=== PATIENT | female | born 1970 | race Two or more races ===

== ENCOUNTER 2022-07-25 09:35 | Inpatient (IN) | payer MEDICAID ==
[2022-07-25] VITALS (8 sets, daily range): BP systolic 88–109; BP diastolic 61–77
[~2022-07-25] VITALS: Ht 157.5 cm; Wt 56.7 kg
--- NOTE | 2022-07-25 09:42 | NUR ---
[id number] FROM 4 SEASONS NOTED ALTERED AND HYPOTENSIVE 20 MINS DRUM CLEANER PER EMS SVT, VERSED 5MG GIVEN PRIOR CARDIOVERSION. ADENOSINE 6/12 MG GIVEN
[2022-07-25 09:58] LABS: ABG BASE EXCESS 29.6 mmol/L; ABG PCO2 63.5 mmHg (35.0-45.0); ABG PH 7.564 (7.350-7.450); ABG PO2 407.5 mmHg (75.0-100.0); COHb 0.3 % (0.5-1.5); MetHb 0.2 % (0.0-1.5); SITE, ABG Right Brachial; VENT MODE, BG 15L NRB
--- NOTE | 2022-07-25 09:58 | NUR ---
RAC 20G IV ESTABLISHED. LABS DRAWN AND SENT TO LAB. LINE FLUSHED
[2022-07-25] MEDS ORDERED: IV NS 0.9% 1,000 ML BAG IV ONE (10:00)
--- NOTE | 2022-07-25 10:00 | NUR ---
BLOOD SAMPLE OBTAINED SENT TO LAB
--- NOTE | 2022-07-25 10:14 | NUR ---
FROM NON REBREATHER TO NASAL CANNULA CHANGED BY RT
--- NOTE | 2022-07-25 10:22 | NUR ---
COVID SWAB TAKEN
[2022-07-25] MEDS ORDERED: METF-440 GT (10:23)
[2022-07-25] MEDS ORDERED: ACET-2605 GT (10:23)
[2022-07-25] MEDS ORDERED: AMIN30LI2 GT (10:23)
[2022-07-25] MEDS ORDERED: LACT-96 GT (10:23)
[2022-07-25] MEDS ORDERED: ONDA-97 GT (10:23)
[2022-07-25] MEDS ORDERED: NA P133E RC (10:23)
[2022-07-25] MEDS ORDERED: BISA10SU11 RC (10:23)
[2022-07-25] MEDS ORDERED: ASCO-340 GT (10:23)
[2022-07-25] MEDS ORDERED: MAGN400O6 GT (10:23)
[2022-07-25] MEDS ORDERED: ACET-868 GT (10:23)
[2022-07-25] MEDS ORDERED: PANT40SU2 GT (10:23)
[2022-07-25] MEDS ORDERED: ZINC50TA69 GT (10:23)
[2022-07-25] MEDS ORDERED: SENN-261 GT (10:23)
[2022-07-25] MEDS ORDERED: MULT-447 GT (10:23)
[2022-07-25] MEDS ORDERED: ACETAMINOPHEN 650 MG/SUPP.RECT RC ONE ×2 (10:29→10:30)
[2022-07-25] MEDS ORDERED: VANCOMYCIN 1 GM in IV D5W 250 ML IV ONE (10:30)
[2022-07-25] MEDS ORDERED: PIPERACILLIN /TAZOBACTAM 3.375 G in IV D5W 50 ML IV ONE (10:30)
--- NOTE | 2022-07-25 10:38 | NUR ---
MOVE SHEET SUBMITTED.
--- NOTE | 2022-07-25 11:14 | NUR ---
PATIENT TAKEN TO CT VIA TOMASA
[2022-07-25 11:26] LABS: HEMATOCRIT 25 % (33-45); HEMOGLOBIN 7.5 g/dL (11.5-14.8); LYMPHOCYTES # (AUTO) 0.2 K/uL (0.8-4.8); MEAN CORPUSCULAR HGB CONC 30 g/dl (31.0-36.0); MEAN CORPUSCULAR VOLUME 80 fL (82-100); MONOCYTES # (AUTO) 0.4 K/uL (0.1-1.30); MONOCYTES % (AUTO) 3.8 % (2.0-12.0); NEUTROPHILS % (AUTO) 94.2 % (43.0-81.0); PLATELET COUNT (AUTO) 232 K/uL (150-450); RED BLOOD CELL COUNT(AUTO) 3.16 MIL/uL (4.0-5.2); WHITE BLOOD COUNT (AUTO) 10.6 K/uL (4.3-11.0)
[2022-07-25 11:28] LABS: ALANINE AMINOTRANSFERASE 40 U/L (12-78); ALBUMIN 2.6 g/dL (3.4-5.0); ALKALINE PHOSPHATASE 153 U/L (46-116); ASPARTATE AMINOTRANSFERASE 74 U/L (15-37); BILIRUBIN,DIRECT 1.6 mg/dL (0.0-0.2); BILIRUBIN,TOTAL 2.4 mg/dL (0.2-1.0); CALCIUM, SERUM 7.9 mg/dL (8.5-10.1); CHLORIDE 90 mmol/L (98-107); CREATININE 4.3 mg/dL (0.6-1.3); TOTAL PROTEIN, SERUM 6.3 g/dL (6.4-8.2)
[2022-07-25 11:54] LABS: CARBON DIOXIDE 54 mmol/L (21-32); GLUCOSE 351 mg/dL (74-106); POTASSIUM 2.1 mmol/L (3.5-5.1); SODIUM SERUM 159 mmol/L (136-145); UREA NITROGEN, BLOOD 127 mg/dL (7-18)
--- NOTE | 2022-07-25 11:55 | NUR ---
CALLED CARDIOLOGY DR. KUO SPEAKING WITH DR. ARMSTRONG.
--- NOTE | 2022-07-25 12:03 | NUR ---
URINE SAMPLE SENT TO LAB
--- NOTE | 2022-07-25 12:05 | NUR ---
CRITICAL LAB RESULTS: SODIUM 159 POTASSIUM 2.1 GLUCOSE 351 BUN 127 LACTIC ACID 3.3 TROPONIN 1,471 MADE AWARE
[2022-07-25 12:33] LABS: BILIRUBIN,URINE 1+ (NEGATIVE); COLOR,URINE DARK YELLOW (YELLOW); LEUKOCYTE ESTERASE ,URINE TRACE (NEGATIVE); NITRITE, URINE NEGATIVE (NEGATIVE); PH,URINE 5.5 (5.0-8.0); PROTEIN,URINE 3+ mg/dl (NEGATIVE); UGLUCOSE TRACE mg/dL (NEGATIVE)
--- NOTE | 2022-07-25 12:36 | NUR ---
ROOM 255, ADMITTING AWARE
--- NOTE | 2022-07-25 12:37 | NUR ---
GOT BED 255 ADMITTING INFORMED.
[2022-07-25 12:41] LABS: BACTERIA,URINE Few /HPF (None Seen); SQUAMOUS EPITHELIAL CELL,UR Moderate /HPF (None Seen)
--- NOTE | 2022-07-25 12:50 | NUR ---
[facility] PAGED. AWAITING HOSPITALIST CALL BACK.
[2022-07-25] MEDS: POTASSIUM CL. PREMIX PERIPHER. 50 ML IV SCH ×4 (13:00→15:53)
[2022-07-25] MEDS ORDERED: POTASSIUM CHLORIDE 20 MEQ TAB.PRT.SR PO ONE (13:00)
--- NOTE | 2022-07-25 13:13 | NUR ---
K DUR TABLETS DISCONTINUED DUE TO PATIENT HIGH RISK FOR ASPIRATION. MADE AWARE.
--- NOTE | 2022-07-25 13:57 | NUR ---
REPORT GIVEN TO BEBETO RICKETTS ICU ROOM 255 FOR KARUNA
[2022-07-25] MEDS ORDERED: ONDANSETRON HCL/PF 4 MG/2 ML VIAL IVP PRN (15:00)
[2022-07-25] MEDS ORDERED: IV NS 0.9% 1,000 ML IV SCH (15:00)
[2022-07-25] MEDS ORDERED: IV D5/0.45 NACL 1,000 ML IV SCH (15:00)
[2022-07-25] MEDS ORDERED: CEFEPIME 2 GM in IV D5W 100 ML IV ONE (15:00)
[2022-07-25] MEDS ORDERED: ACETAMINOPHEN 325 MG TABLET PO PRN (15:00)
[2022-07-25] MEDS ORDERED: MAGNESIUM HYDROXIDE 30 ML UDC PO PRN (15:00)
[2022-07-25] MEDS ORDERED: MAG HYDROX/AL HYDROX/SIMETH 30 ML UDC PO PRN (15:00)
[2022-07-25] MEDS ORDERED: Z GUARD REMEDY 4 OZ OINT TP PRN (15:00)
--- NOTE | 2022-07-25 15:15 | NUR ---
ICU/RN PT ADMITED FROM ER. DUE TO SEPSIS.AWAKE,ALERT ,ORIENTED.PITCAIRN ISLANDER SPEAKING.[id number].V/S STABLE.PT HAS HX OF GASTRIC CA.HAS G-TUBE CLAMPED.F/C IN PLACE.WITH YELLOW URINE. SKIN INTACT. LABS REVIEW.K-2.1.KCL INFUSING ORDERED.PT C/O OF ABDOMINAL PAIN .MD NOTIFIED. CONTINUE MONITORING.
--- NOTE | 2022-07-25 15:15 | NUR ---
PATIENT TRANSFERED AND ADMITTED PER ACLS PROTOCOL
[2022-07-25] MEDS: ENOXAPARIN SODIUM 30 MG/0.3 ML DISP.SYRIN SQ SCH (15:35)
--- NOTE | 2022-07-25 15:38 | NUR ---
ICU/RN PT HAS N/V .ZOFRAN IV GIVEN ORDERED.
[2022-07-25] MEDS: MORPHINE SULFATE INJ 4 MG/ML DISP.SYRIN IV PRN (16:03)
--- NOTE | 2022-07-25 16:05 | NUR ---
ICU/RN PT C/O OF ABDOMINAL PAIN 9-12/22. MORPHINE SULFATE 4 MG IV GIVEN ORDERED.
[2022-07-25] MEDS: BLOOD SUGAR DIAGNOSTIC 1 EACH STRIP VI SCH ×2 (16:31→22:23)
--- NOTE | 2022-07-25 16:32 | NUR ---
RN NOTES RECEIVED CRITICAL OF TROPONIN 1853 FROM ALODIZE MACHINE OPERATOR (BALJEET). DR. LARSON AWARE AND THAT TROPONIN IS TRENDING DOWN.
[2022-07-25] MEDS: INSULIN REGULAR, HUMAN 100 UNIT/ML 3 ML VIAL SQ PRN (16:51)
--- NOTE | 2022-07-25 16:51 | NUR ---
RN NOTES NOTIFIED DR. LARSON THAT PT'S GLUCOSE IS CURRENTLY AT 429. GAVE 15U REGULAR INSULIN. THE DOCTOR IS AWARE AND REQUESTED TO D/C D5 1/2 NS AND REPLACE WITH 1/2 NS AT THE SAME RATE OF 100 ML/HR.
[2022-07-25] MEDS: IV 1/2NS 1000 ML 1,000 ML IV PRN (17:27)
[2022-07-25] MEDS: *INSULIN REGULAR(HUMULIN R)HUM 100 UNIT/ML VIAL SQ PRN ×2 (18:30→22:28)
--- NOTE | 2022-07-25 18:30 | NUR ---
RN NOTES RECHECKED PT'S GLUCOSE AND IS NOW AT 401. GAVE ANOTHER 15U OF REGULAR INSULIN. NOTIFIED DR. LARSON AND HE IS AWARE.
--- NOTE | 2022-07-25 18:41 | NUR ---
ICU/RN K LEVEL 2.5. MD NOTIFIED 80 MEQ KLOR VIA G-TUBE ORDERED AND REPLACED.
[2022-07-25] MEDS ORDERED: POTASSIUM CHLORIDE 20 MEQ POWDER PACKET GT ONE (19:00)
--- NOTE | 2022-07-25 19:07 | NUR ---
RN CLOSING NOTES PT LOOKS COMFORTABLE, ALL DUE MEDS GIVEN. REPORT GIVEN TO MARISOL RICKETTS FOR CONTINUATION OF CARE.
--- NOTE | 2022-07-25 23:30 | NUR ---
DELIVERY COORDINATOR CALLED LAB FOR 9528 DRAW
[2022-07-26] VITALS (18 sets, daily range): BP systolic 98–134; BP diastolic 66–95
[2022-07-26 00:57] LABS: CALCIUM, SERUM 8.4 mg/dL (8.5-10.1); CREATININE 4.5 mg/dL (0.6-1.3); MAGNESIUM 3.4 mg/dL (1.8-2.4)
--- NOTE | 2022-07-26 01:15 | NUR ---
PERSONAL CHEF CALLED LAB FOR RESULTS OF 2330 LAB WORK; PER LAB STILL RUNNING
[2022-07-26] MEDS: POTASSIUM CL. PREMIX PERIPHER. 50 ML IV SCH ×3 (02:02→04:00)
[2022-07-26] MEDS: IV 1/2NS 1000 ML 1,000 ML IV PRN (02:32)
[2022-07-26 06:18] LABS: BASOPHILS % (AUTO) 0.2 % (0.0-2.0); EOSINOPHILS % (AUTO) 0.2 % (0.0-6.0); HEMATOCRIT 27 % (33-45); HEMOGLOBIN 8.2 g/dL (11.5-14.8); LYMPHOCYTES # (AUTO) 1.1 K/uL (0.8-4.8); LYMPHOCYTES % (AUTO) 5.8 % (20.0-44.0); MEAN CORPUSCULAR HGB CONC 30 g/dl (31.0-36.0); MEAN CORPUSCULAR VOLUME 78 fL (82-100); MONOCYTES # (AUTO) 0.9 K/uL (0.1-1.30); MONOCYTES % (AUTO) 4.7 % (2.0-12.0); NEUTROPHILS # (AUTO) 17.2 K/uL (1.8-8.9); NEUTROPHILS % (AUTO) 89.1 % (43.0-81.0); PLATELET COUNT (AUTO) 240 K/uL (150-450); RED BLOOD CELL COUNT(AUTO) 3.46 MIL/uL (4.0-5.2); WHITE BLOOD COUNT (AUTO) 19.3 K/uL (4.3-11.0)
[2022-07-26 06:46] LABS: ALBUMIN 2.6 g/dL (3.4-5.0); BILIRUBIN,TOTAL 1.4 mg/dL (0.2-1.0); CALCIUM, SERUM 8.4 mg/dL (8.5-10.1); CREATININE 4.4 mg/dL (0.6-1.3); MAGNESIUM 3.2 mg/dL (1.8-2.4); PHOSPHORUS 7.4 mg/dL (2.5-4.9); TOTAL PROTEIN, SERUM 6.6 g/dL (6.4-8.2)
--- NOTE | 2022-07-26 07:21 | NUR ---
RN OPENING NOTE PT IN BED ON OXYGEN 3 LITER VIA NASAL CANULA, BREATHING EVEN AND UNLABORED WITH NO S/S OF SOB OR RESPIRATORY DISTRESS.. IV ACCESS ON BELINDA MIDLINE . INTACT AND PATENT AND NO S/S OF INFILTRATIONS RUNNING 1/2 NS AT 100CC/HR. ALL SAFETY MEASURES IN PLACE WITH SIDE RAILS UP X3, BED IN LOWEST POSITION AND LOCKED AND CALL LIGHT WITHIN REACH. WILL CONTINUE TO MONITOR.
[2022-07-26] MEDS: DEXTROSE 50%-WATER 50 ML DISP.SYRIN IV PRN (07:36)
[2022-07-26] MEDS: BLOOD SUGAR DIAGNOSTIC 1 EACH STRIP VI SCH ×4 (07:36→22:42)
[2022-07-26] MEDS: ENOXAPARIN SODIUM 30 MG/0.3 ML DISP.SYRIN SQ SCH (08:47)
[2022-07-26] MEDS ORDERED: GLUCERNA 1.2 1,000 ML BOTTLE NG PRN (09:00)
[2022-07-26] MEDS: IV D5/0.45 NACL 1,000 ML IV PRN ×2 (09:02→21:44)
[2022-07-26] MEDS: GLUCERNA 1.2 1,000 ML BOTTLE NG PRN (10:21)
--- NOTE | 2022-07-26 10:21 | NUR ---
RN NOTES: CHECKED GT RESIDUAL IS ABOVE 400 ML DARK GREEN NOTIFIED DR SIERRA IF OK TO START TUBE FEEDING HE SAID NO GIVE FREE WATER AND RECHECK IN FEW HOURS , 300 ML FREE WATER GIVEN ,NO VOMITING NOTED WILL MONITOR
[2022-07-26 11:31] LABS: BILIRUBIN,URINE NEGATIVE (NEGATIVE); COLOR,URINE YELLOW (YELLOW); LEUKOCYTE ESTERASE ,URINE NEGATIVE (NEGATIVE); NITRITE, URINE NEGATIVE (NEGATIVE); PH,URINE 8.5 (5.0-8.0); PROTEIN,URINE 1+ mg/dl (NEGATIVE); UGLUCOSE NEGATIVE (NEGATIVE); UROBILINOGEN,URINE 0.2 EU/dL (0.2)
[2022-07-26 11:35] LABS: CREATININE, URINE 45.1 MG/DL (30.0-125.0)
[2022-07-26 11:52] LABS: BACTERIA,URINE Moderate /HPF (None Seen); SQUAMOUS EPITHELIAL CELL,UR Moderate /HPF (None Seen); WBC,URINE NONE SEEN /HPF (0-3)
[2022-07-26] MEDS ORDERED: MAGNESIUM HYDROXIDE 30 ML UDC GT PRN (12:21)
[2022-07-26] MEDS ORDERED: MAG HYDROX/AL HYDROX/SIMETH 30 ML UDC GT PRN (12:22)
[2022-07-26] MEDS ORDERED: ACETAMINOPHEN 650 MG/20.3 ML UDC PO PRN (12:30)
--- NOTE | 2022-07-26 15:45 | NUR ---
RN NOTES: PT MOVED TO TELE UNIT ROOM 1111-2, STAY WITH PT TO CONTINUE CARE, CALLED SON NO ANSWER, CALLED DAUGHTER MADE AWARE OF THE TRANSFER
[2022-07-26] MEDS: CEFEPIME 1 GM in IV D5W 50 ML IV SCH (16:57)
--- NOTE | 2022-07-26 19:10 | NUR ---
SENIOR COUNSEL OPENING NOTE PT IS SLEEPING IN BED WITH HOB ELEVATED AT 30 DEGREE. PT HAS G-TUBE, BUT CURRENTLY THE FEEDING IS HELD DUE TO HIGH STOMACH RESIDUAL PER CHANGE SHIFT REPORT. PT IS FRISIAN SPEAKING, AO X 1. SHE IS CONFUSED. SHE IS ON 3LPM OF OXYGEN VIA NC, TOLERATED WELL.NO S/S OF DISTRESS OR SOB. IV ACCESS IS AT HER R UA,ML, #18G, INFUSING D5 1/2NS @75 ML/HR. IV SITE IS PATENT AND INTACT. PT IS ON EXTERNAL MOLDING MACHINE OPERATOR HELPER, ON THE MONITOR, PT'S HEART RHYTHM IS SR WITH HR AT 80S. PT DENIES OF HAVING PAIN AT THIS MOMENT. SAFETY MEASURES ARE IN PLACED: BED IN LOWEST AND LOCKED POSITION; SIDE RAILS UP X 2; CALL LIGHT AND TABLE ARE WITHIN REACH. WILL CONTINUE MONITORING THE PT AND PROVIDE THE CARE PT NEEDS.
--- NOTE | 2022-07-26 19:43 | NUR ---
RN CLOSING NOTES PT IN BED AWAKE ALERT SPEAKS MALAY,NOT IN ANY DISTRESS, CONTINUE TO HOLD GTF RESIDUAL IS GREEN ABOVE 300 CC,DR SIERRA AWARE, ALL DUE MEDS GIVEN. CONTINUE IV D5 1/2 NS AT 75 ML/HR. REPORT GIVEN TO GRADES 1 THROUGH 5 TEACHER RN FOR CONTINUATION OF CARE.
--- NOTE | 2022-07-26 21:00 | NUR ---
RECORDING STUDIO SET UP WORKER NOTE CHECKED PT'S G-TUBE RESIDUAL, RECEIVED 600 ML OF GREENISH AND BLUISH COLOR LIQUID. NOTIFIED Jimmy REDDY AND CHARGE NURSE BENITO. DISCARDED THE LIQUID. RECEIVED ORDER OF MEDICATION, REGLAN,FOR THE PT. CHARGE NURSE, BENITO, NOTIFIED.
[2022-07-26] MEDS: METOCLOPRAMIDE HCL 10 MG/2 ML VIAL IV SCH (22:41)
[2022-07-26] MEDS: MORPHINE SULFATE INJ 4 MG/ML DISP.SYRIN IV PRN (22:57)
[2022-07-26] MEDS: *INSULIN REGULAR(HUMULIN R)HUM 100 UNIT/ML VIAL SQ PRN (23:00)
--- NOTE | 2022-07-26 23:13 | NUR ---
PACKING ROOM WORKER NOTE PT STATED SHE WAS HAVING PAIN AT HER UPPER ABD, 10/10 ON A 0 TO 10 PAIN SCALE. PRN IV MEDICATION, MORPHINE 4 MG, ADMINISTERED TO THE PT PER MD ORDER.
[2022-07-27] VITALS: BP 107/72
[2022-07-27] MEDS: MORPHINE SULFATE INJ 4 MG/ML DISP.SYRIN IV PRN (01:14)
[2022-07-27] MEDS: METOCLOPRAMIDE HCL 10 MG/2 ML VIAL IV SCH ×4 (03:50→21:36)
[2022-07-27 04:00] VITALS: BP 110/72
--- NOTE | 2022-07-27 06:30 | NUR ---
BUILDING PRESSURE WASHER CLOSING NOTE PT IS SLEEPING IN BED WITH HOB ELEVATED AT 45 DEGREE. PT HAS G-TUBE, BUT CURRENTLY THE FEEDING IS HELD DUE TO HIGH STOMACH RESIDUAL. G-TUBE HAS BEEN FLUSHED PER MD ORDER DURING THE SHIFT. SHE IS ON 3LPM OF OXYGEN VIA NC, TOLERATED WELL.NO S/S OF DISTRESS OR SOB. IV ACCESS IS AT HER R UA,ML, #18G, INFUSING D5 1/2NS @75 ML/HR. IV SITE IS PATENT AND INTACT. PT IS ON EXTERNAL BRUSH FINISHER, ON THE MONITOR, PT'S HEART RHYTHM IS SR WITH HR AT 80S. PT DENIES OF HAVING PAIN AT THIS MOMENT. SAFETY MEASURES ARE IN PLACED: BED IN LOWEST AND LOCKED POSITION; SIDE RAILS UP X 2; CALL LIGHT AND TABLE ARE WITHIN REACH. WILL ENDORSE NEXT SHIFT NURSE FOR CONTINUING PT CARE.
[2022-07-27] MEDS: IV D5/0.45 NACL 1,000 ML IV PRN ×2 (06:46→16:49)
[2022-07-27 07:30] LABS: BASOPHILS % (AUTO) 0.2 % (0.0-2.0); EOSINOPHILS % (AUTO) 0.5 % (0.0-6.0); HEMATOCRIT 25 % (33-45); HEMOGLOBIN 7.5 g/dL (11.5-14.8); LYMPHOCYTES % (AUTO) 7.9 % (20.0-44.0); MEAN CORPUSCULAR HGB CONC 31 g/dl (31.0-36.0); MEAN CORPUSCULAR VOLUME 81 fL (82-100); MONOCYTES # (AUTO) 0.7 K/uL (0.1-1.30); MONOCYTES % (AUTO) 5.3 % (2.0-12.0); NEUTROPHILS # (AUTO) 10.7 K/uL (1.8-8.9); NEUTROPHILS % (AUTO) 86.1 % (43.0-81.0); PLATELET COUNT (AUTO) 196 K/uL (150-450); RED BLOOD CELL COUNT(AUTO) 3.05 MIL/uL (4.0-5.2); WHITE BLOOD COUNT (AUTO) 12.4 K/uL (4.3-11.0)
[2022-07-27 07:38] LABS: CALCIUM, SERUM 8.9 mg/dL (8.5-10.1); CREATININE 2.8 mg/dL (0.6-1.3)
[2022-07-27 07:39] LABS: MAGNESIUM 3.6 mg/dL (1.8-2.4); PHOSPHORUS 4.6 mg/dL (2.5-4.9)
[2022-07-27 07:45] LABS: IRON, SERUM 33 ug/dl (50-175); TOTAL IRON BINDING CAPACITY 201 ug/dl (250-450)
[2022-07-27 07:55] LABS: POTASSIUM 2.6 mmol/L (3.5-5.1)
[2022-07-27] MEDS: BLOOD SUGAR DIAGNOSTIC 1 EACH STRIP VI SCH ×4 (07:59→22:00)
[2022-07-27 08:00] VITALS: BP 123/75
[2022-07-27] MEDS: INSULIN REGULAR, HUMAN 100 UNIT/ML 3 ML VIAL SQ PRN ×3 (08:37→21:54)
[2022-07-27 09:00] LABS: THYROID STIMULATING HORMONE 4.201 uIU/mL (0.358-3.74)
[2022-07-27] MEDS ORDERED: POTASSIUM CHLORIDE 20 MEQ TAB.PRT.SR PO SCH (09:00)
--- NOTE | 2022-07-27 09:05 | NUR ---
RN NOTE REMOVED 450CC OF CLEAR GREEN RESIDUAL FROM G-TUBE, WILL CONTINUE TO HOLD FEEDING AT THIS TIME. CHARGE NURSE AWARE. AWARE.
[2022-07-27] MEDS ORDERED: VANCOMYCIN HCL 0.75 GM in IV D5W 250 ML IV SCH (11:00)
[2022-07-27] MEDS ORDERED: POTASSIUM CHLORIDE 10 MEQ/50 ML PREMIXED IVPB FOR PERIPHERAL LINE IV ONE ×3 (11:00→21:00)
[2022-07-27 12:00] VITALS: BP 117/81
[2022-07-27 16:00] VITALS: BP 124/88
[2022-07-27] MEDS: CEFEPIME 1 GM in IV D5W 50 ML IV SCH (16:21)
[2022-07-27] MEDS: acetaZOLAMIDE SODIUM 500 MG/VIAL VIAL IV SCH (16:22)
--- NOTE | 2022-07-27 18:18 | NUR ---
RN NOTE PULLED 10BAGS OF 10meQ / 50mL AT 1050AM, RUNNING AT 50mL/hr, bag 7/10 is RUNNING AT THIS TIME.
[2022-07-27] MEDS ORDERED: POTASSIUM CHLORIDE 20 MEQ POWDER PACKET GT ONE (18:30)
[2022-07-27] MEDS: *INSULIN REGULAR(HUMULIN R)HUM 100 UNIT/ML VIAL SQ PRN (19:07)
--- NOTE | 2022-07-27 20:39 | NUR ---
LOGISTICS/SHIPPER CLOSING NOTE PT IS SLEEPING IN BED WITH HOB ELEVATED AT 45 DEGREE. PT HAS G-TUBE, BUT CURRENTLY THE FEEDING IS HELD DUE TO HIGH STOMACH RESIDUAL. G-TUBE HAS BEEN FLUSHED 400CC OF FREE WATER Q6H PER MD ORDER DURING THE SHIFT. SHE IS ON 3LPM OF OXYGEN VIA NC, TOLERATED WELL.NO S/S OF DISTRESS OR SOB. IV ACCESS IS AT HER BELINDA,ML, #18G, INFUSING D5 1/2NS @150ML/HR. IV SITE IS PATENT AND INTACT. PT IS ON EXTERNAL BROADCAST PRODUCER, ON THE MONITOR, PT'S HEART RHYTHM IS SR WITH HR AT 80S. PT DENIES OF HAVING PAIN AT THIS MOMENT. SAFETY MEASURES ARE IN PLACED: BED IN LOWEST AND LOCKED POSITION; SIDE RAILS UP X 2; CALL LIGHT AND TABLE ARE WITHIN REACH. WILL ENDORSE NEXT SHIFT NURSE FOR CONTINUING PT CARE.
--- NOTE | 2022-07-27 21:05 | NUR ---
INFORMED DR MIJARES THAT I STILL HAVE TO BAGS OF POTASSIUM TO GIVE FOR TOTAL OF 10 BAGS, AND IF HE STILL WANT ME TO GIVE 1 BAG JUST ORDER BY HIM, AND PER HIM TO HOLD THE BAG, NOTED AND CARRIED OUT.
[2022-07-27 22:00] VITALS: BP 112/73
[2022-07-28] VITALS: BP 113/70
[2022-07-28] MEDS: IV D5/0.45 NACL 1,000 ML IV PRN ×2 (00:12→09:49)
[2022-07-28] MEDS: MORPHINE SULFATE INJ 4 MG/ML DISP.SYRIN IV PRN (03:36)
[2022-07-28 04:00] VITALS: BP 97/60
[2022-07-28] MEDS: METOCLOPRAMIDE HCL 10 MG/2 ML VIAL IV SCH ×4 (04:23→21:36)
[2022-07-28 06:20] LABS: HEMATOCRIT 35 % (33-45); HEMOGLOBIN 10.3 g/dL (11.5-14.8); LYMPHOCYTES # (AUTO) 0.3 K/uL (0.8-4.8); LYMPHOCYTES % (AUTO) 1.4 % (20.0-44.0); MEAN CORPUSCULAR HGB CONC 30 g/dl (31.0-36.0); MEAN CORPUSCULAR VOLUME 82 fL (82-100); MONOCYTES # (AUTO) 0.6 K/uL (0.1-1.30); MONOCYTES % (AUTO) 3.1 % (2.0-12.0); NEUTROPHILS # (AUTO) 19.1 K/uL (1.8-8.9); NEUTROPHILS % (AUTO) 95.5 % (43.0-81.0); PLATELET COUNT (AUTO) 411 K/uL (150-450); RED BLOOD CELL COUNT(AUTO) 4.24 MIL/uL (4.0-5.2)
--- NOTE | 2022-07-28 06:28 | NUR ---
END OF SHIFT, PATIENT IN BED, AT 3LPM VIA NC, NO SOB/ACUTE DISTRESS DURING THE NIGHT, NSR-SINUS TACHY IN TELE MONITOR, ON PAIN MANAGEMENT, CONTINUE ON IV FLUIDS ORDERED, DRESSING INTACT, VITAL SINGS STABLE DURING THE NIGHT, AFEBRILE, ALL SAFETY PRECAUTIONS IN PLACE, CALL LIGHT W/I REACH, WILL ENDORSE CONTINUITY OF CARE TO ONCOMING NURSE.
[2022-07-28 06:53] LABS: CALCIUM, SERUM 8.8 mg/dL (8.5-10.1); CREATININE 2.6 mg/dL (0.6-1.3); POTASSIUM 3.1 mmol/L (3.5-5.1)
--- NOTE | 2022-07-28 07:55 | NUR ---
electrician telephone opening note pt is alert and oriented x1, confused. pt is on tele monitor sinus tachycardia 116. pt has right upper armidline. iv intact, patent and flushing well. pt on 3 l nasal cannula saturating above 92%. no signs of pain or discomfort noted at this time. pt has gtube. all safety measures in place. call light within reach. bed locked at lowest postion. side rails up x2. bed alarm on
[2022-07-28 08:00] VITALS: BP 91/60
[2022-07-28] MEDS: BLOOD SUGAR DIAGNOSTIC 1 EACH STRIP VI SCH ×4 (08:02→22:00)
[2022-07-28] MEDS: acetaZOLAMIDE SODIUM 500 MG/VIAL VIAL IV SCH (08:35)
--- NOTE | 2022-07-28 08:36 | NUR ---
rn note notified that bp is 91/60 and if okay to hold acetazolamide.said okay to hold and resume once sbp >100
[2022-07-28] MEDS: POTASSIUM CL. PREMIX PERIPHER. 50 ML IV SCH ×6 (09:41→21:33)
[2022-07-28] MEDS: VANCOMYCIN HCL 0.75 GM in IV D5W 250 ML IV SCH (10:34)
[2022-07-28] MEDS: INSULIN REGULAR, HUMAN 100 UNIT/ML 3 ML VIAL SQ PRN (11:42)
[2022-07-28 12:00] VITALS: BP 91/64
[2022-07-28] MEDS ORDERED: ALBUMIN 25% 25 GM in PREMIX 1 EA IV ONE (12:00)
[2022-07-28] MEDS ORDERED: IV NS 0.9% 500 ML IV ONE ×2 (13:00→13:30)
[2022-07-28] MEDS: CEFEPIME 1 GM in IV D5W 50 ML IV SCH (15:59)
[2022-07-28 16:00] VITALS: BP 99/67
--- NOTE | 2022-07-28 17:08 | NUR ---
RN NOTE PT LEFT IN STABLE CONDITION FOR HIDA SCAN
[2022-07-28] MEDS: BLOOD SUGAR DIAGNOSTIC 1 EACH STRIP IN SCH (17:12)
--- NOTE | 2022-07-28 18:52 | NUR ---
rn note unable to give insulin coverage for 261, pt still at hida scan. unable to insert hansen, pt is at procedure at this time
--- NOTE | 2022-07-28 18:59 | NUR ---
rn note endorsed that pt will be back on tunit around 2030.pt still at hida scan
--- NOTE | 2022-07-28 19:47 | NUR ---
rn note received call from Dr.Sam Brown pt is tachycardia, high wbc count with possible bowel perforation and to order stat ct scan of abdomen and pelvis with oral contrast and iv contrast. orders noted and carried out. notified dr.sam brown and surgery department that creatine is 2.6. surgery team aware.endorsed to shift coordinator rn for contuity of care Addendum: 07/28/22 at 2022 by ROSS MERRITT RN disregard surgery department comment. received call from xray department bun and creatinine is high. notified that ct can not do oral and iv contrast due to high bun and creatinine level. ordered ct of abdomen and pelvis without contrast. notified xray about new order. Addendum: 07/28/22 at 2023 by ROSS MERRITT RN pt still in nuclear medicine
--- NOTE | 2022-07-28 21:06 | NUR ---
RN OPENING NOTE PATIENT OUT FOR HIDA SCAN
--- NOTE | 2022-07-28 22:25 | NUR ---
2225 Called Radiology and spoke with Vinh regarding stat CT abd/pelvis with oral contrast order, he said they are busy at the moment and will call us back.
--- NOTE | 2022-07-28 22:25 | NUR ---
PER DR CAROLINA MORALES TO DO STAT CT SCAN ABD/PELVIS WITH ORAL CONTRAST EVEN THOUGH BUN/CREATINE HIGH.
[2022-07-28 22:34] VITALS: BP 99/67
--- NOTE | 2022-07-28 23:00 | NUR ---
2300 called Radiology again to follow up CT order no answer.
--- NOTE | 2022-07-28 23:15 | NUR ---
[address] again still no answer.
--- NOTE | 2022-07-28 23:25 | NUR ---
2669 Received a call from Dr. Ireland he said Dr. Mccormack spoke with him and wants the patient transferred to ICU now for pending surgery tonight. House Sup notified.
[2022-07-28] MEDS ORDERED: DIATR MEGLU/DIATRIZOATE SODIUM 120 ML BOTTLE (GASTROGRAPHIN) ONE (23:36)
--- NOTE | 2022-07-28 23:40 | NUR ---
[address] on ACLS protocol. Awake and verbally responsive. No signs of distress noted.
[2022-07-28] MEDS ORDERED: IOHEXOL-300 100 ML VIAL IV ONE (23:47)
[2022-07-28] MEDS ORDERED: IV NS 0.9% 250 ML IV ONE (23:48)
[2022-07-28] MEDS ORDERED: CT SWABBABLE VALVE TRANS SET 1 EA INFUS.SET MC ONE (23:48)
[2022-07-29] VITALS (26 sets, daily range): BP systolic 81–139; BP diastolic 56–96
[2022-07-29] MEDS: INSULIN REGULAR, HUMAN 100 UNIT/ML 3 ML VIAL SQ PRN ×2 (00:19→06:17)
--- NOTE | 2022-07-29 00:20 | NUR ---
0020 Transferred to ICU on ACLS protocol. Report given to Corine RN by Bev RICKETTS. Called lab for stat blood works order.
--- NOTE | 2022-07-29 00:25 | NUR ---
RN NOTES, ENDORSED PATIENT TO SHIMA RN FOR CONTINUATION OF CARE, BEDSIDE REPORT GIVEN IN ICU UNIT, PATIENT NPO, JUST BROUGHT FROM RADIOLOGY FOR STAT CT ABDOMEN/PELVIS WITH ORAL CONTRAST PER DR FIGUEROA ORDERS, PATIENT AWAKE A/O X3 SIERRA LEONEAN SPEAKING, DR SUAZO SAW AND TALKED TO PATIENT EARLIER BEFORE CT, AND EXPLAINED THAT SHE NEEDS SURGERY FOR POSSIBLE BOWEL PERFORATION, AND AKSED PT IS SHE WAS OK WITH SURGERY, PT AGREED TO SURGERY, CALLED SON MAKAYLA AND MADE HIM AWARE OF THE SITUATION AND THAT PT IS BEING TRANSFERRED TO ICU.
[2022-07-29] MEDS: IV D5/0.45 NACL 1,000 ML IV PRN ×3 (00:37→22:14)
[2022-07-29] MEDS: BLOOD SUGAR DIAGNOSTIC 1 EACH STRIP IN SCH ×4 (00:43→19:17)
[2022-07-29 01:22] LABS: HEMATOCRIT 30 % (33-45); HEMOGLOBIN 8.9 g/dL (11.5-14.8); LYMPHOCYTES # (AUTO) 0.8 K/uL (0.8-4.8); LYMPHOCYTES % (AUTO) 4.4 % (20.0-44.0); MEAN CORPUSCULAR HGB CONC 30 g/dl (31.0-36.0); MEAN CORPUSCULAR VOLUME 80 fL (82-100); MONOCYTES # (AUTO) 0.4 K/uL (0.1-1.30); MONOCYTES % (AUTO) 2.1 % (2.0-12.0); NEUTROPHILS % (AUTO) 93.5 % (43.0-81.0); PLATELET COUNT (AUTO) 241 K/uL (150-450); RED BLOOD CELL COUNT(AUTO) 3.71 MIL/uL (4.0-5.2); WHITE BLOOD COUNT (AUTO) 19.3 K/uL (4.3-11.0)
[2022-07-29] MEDS ORDERED: BUPIVACAINE MPF 0.5% W/EPI INJ 30 ML VIAL ONE (01:33)
[2022-07-29] MEDS ORDERED: ANESTHESIA TRAY IN PYXIS 1 EA TRAY MC ONE (01:33)
[2022-07-29] MEDS ORDERED: LIDOCAINE 1% INJ 50 ML MDV IJ ONE (01:33)
--- NOTE | 2022-07-29 01:35 | NUR ---
RN LEVI BARBER AT BEDSIDE, EXPLAINED THE PROCEDURE AND RISK UNDERTAKEN TO THE PATIENT, SON MAKAYLA ON SPEAKER AND OBTAINED VERBAL CONSENT TO PERFORM PROCEDURE. JAMARCUS MEEKS AT BEDSIDE TO TRANSLATE IN [place].
[2022-07-29 01:41] LABS: CALCIUM, SERUM 8.1 mg/dL (8.5-10.1); CREATININE 4.1 mg/dL (0.6-1.3); POTASSIUM 4.4 mmol/L (3.5-5.1)
[2022-07-29 01:46] LABS: ALBUMIN 1.8 g/dL (3.4-5.0); TOTAL PROTEIN, SERUM 5.9 g/dL (6.4-8.2)
[2022-07-29] MEDS ORDERED: FENTANYL PF 250MCG/5ML AMPUL ONE (01:57)
[2022-07-29] MEDS ORDERED: ROCURONIUM BROMIDE 50 MG/5 ML ONE (01:58)
[2022-07-29] MEDS ORDERED: MIDAZOLAM HCL 2 MG/2ML VIAL ONE (01:58)
[2022-07-29] MEDS ORDERED: FAMOTIDINE/PF INJ 20 MG/2 ML VIAL IV ONE (01:58)
[2022-07-29] MEDS ORDERED: HYDROMORPHONE INJ 2 MG/ML DISP.SYRIN ONE (01:58)
[2022-07-29] MEDS ORDERED: CLINDAMYCIN 900 MG/6 ML VIAL ONE (01:59)
--- NOTE | 2022-07-29 02:10 | NUR ---
RN NOTE PT TRANSFERRED TO OR ACCOMPANIED BY 2 OR STAFF, HEMPHILL CATH INSERTED ORDERED. V/S TAKEN AND RECORDED 97.8, 95/80, 98%, HR 133, RR 42.
[2022-07-29] MEDS: METOCLOPRAMIDE HCL 10 MG/2 ML VIAL IV SCH ×4 (04:00→22:03)
[2022-07-29] MEDS ORDERED: ENOXAPARIN SODIUM 40 MG/0.4 ML DISP.SYRIN SQ SCH (05:30)
--- NOTE | 2022-07-29 05:30 | NUR ---
RN NOTE RECEIVED PT BACK FROM OR WITH DX OF LAPAROSCOPY, REPAIR OF GASTRIC PERFORATION AND EGD, DR SINGH AND MINDY RN AT BEDSIDE. PT NOTED WITH 4 INCISION, WITH 2 IRASEMA DRAIN ON BOTH SIDE. V/S TAKEN AND RECORDED AT 98.1, 101/85, SATING 100% ON 10L SIMPLE MASK, RR 32 AND HR 105. WILL CONT TO MONITOR PT CLOSELY.
[2022-07-29] MEDS: ENOXAPARIN SODIUM 30 MG/0.3 ML DISP.SYRIN SQ SCH (06:16)
[2022-07-29] MEDS: BLOOD SUGAR DIAGNOSTIC 1 EACH STRIP VI SCH ×4 (06:18→19:19)
--- NOTE | 2022-07-29 06:18 | NUR ---
RN NOTE NON-ADMIN SCHEDULED ACCUCHECK AT 0730, DOUBLE ORDER. PT HAD BS CHECKED AT 0600 158 MG/DL, 2 UNITS OF INSULIN GIVEN PER PROTOCOL.
--- NOTE | 2022-07-29 07:10 | NUR ---
RN OPENING NOTE: RECEIVED PT IN BED. EYE CLOSE. RESPONSIVE ONLY TO TACTILE STIMULE WITH EYES OPEN. ON ORAL PHARYNGEAL AIRWAY AT 2LPM N/C. O2SAT AT 100%. NO RESP DISTRESS NOTED.HOB KEPT ELEVATED AT 30 AFEBRILE. BELINDA MIDLINE AND L HAND 20G INTACT AND PATENT. NO INFILTRATION NOTED. LEFT AND RIGHT IRASEMA DRAINING.F/C PATENT AND INTACT FLOWING TO YELLOW CLEAR URINE. BED KEPT LOW AND LOCK FOR SAFETY. CALL LIGHT WITHIN REACH.
--- NOTE | 2022-07-29 07:26 | NUR ---
INSURANCE INSPECTOR NOTE REPORT GIVEN TO WES RICKETTS FOR CONTINUITY OF CARE.
[2022-07-29] MEDS: PANTOPRAZOLE 40 MG VIAL IV SCH (09:02)
[2022-07-29] MEDS: acetaZOLAMIDE SODIUM 500 MG/VIAL VIAL IV SCH (09:04)
[2022-07-29 09:15] LABS: BASOPHILS % (AUTO) 0.1 % (0.0-2.0); EOSINOPHILS % (AUTO) 0.1 % (0.0-6.0); HEMATOCRIT 21 % (33-45); LYMPHOCYTES # (AUTO) 0.6 K/uL (0.8-4.8); LYMPHOCYTES % (AUTO) 4.8 % (20.0-44.0); MEAN CORPUSCULAR HGB CONC 29 g/dl (31.0-36.0); MEAN CORPUSCULAR VOLUME 82 fL (82-100); MONOCYTES # (AUTO) 0.4 K/uL (0.1-1.30); MONOCYTES % (AUTO) 2.9 % (2.0-12.0); NEUTROPHILS % (AUTO) 92.1 % (43.0-81.0); PLATELET COUNT (AUTO) 171 K/uL (150-450)
[2022-07-29 09:29] LABS: CALCIUM, SERUM 7.1 mg/dL (8.5-10.1); CREATININE 4.1 mg/dL (0.6-1.3); MAGNESIUM 2.2 mg/dL (1.8-2.4); PHOSPHORUS 5.3 mg/dL (2.5-4.9); POTASSIUM 4.6 mmol/L (3.5-5.1)
[2022-07-29 09:49] LABS: HEMOGLOBIN 6.2 g/dL (11.5-14.8)
[2022-07-29 09:51] LABS: ABG BASE EXCESS 6.7 mmol/L; ABG OXYGEN SATURATION 51.1 % (92.0-98.5); ABG PCO2 53.9 mmHg (35.0-45.0); ABG PH 7.396 (7.350-7.450); ABG PO2 31.5 mmHg (75.0-100.0); COHb 0.5 % (0.5-1.5); MetHb 0.3 % (0.0-1.5); O2Hb 50.7 % (94.0-97.0); SITE, ABG Other
--- NOTE | 2022-07-29 11:00 | NUR ---
RN NOTE DR. PERSAUD WITH ORDER BLOOD TRANSFUSION 2 UNITS FOR HGB 6.2 CALLED MAKAYLA SON FOR CONSENT [phone]. NO ANSWER. UNABLE TO LEAVE VM. WILL TRY AGAIN.
[2022-07-29] MEDS: VANCOMYCIN HCL 0.75 GM in IV D5W 250 ML IV SCH (11:05)
[2022-07-29] MEDS: *INSULIN REGULAR(HUMULIN R)HUM 100 UNIT/ML VIAL SQ PRN ×2 (11:37→18:22)
[2022-07-29 13:06] LABS: BASOPHILS % (MANUAL) 0 % (0.0-2.0); EOSINOPHILS % (MANUAL) 2 % (0-4); LYMPHOCYTES % (MANUAL) 6 % (16-48); MONOCYTES % (MANUAL) 5 % (0-11.0); NEUTROPHILS % (MANUAL) 87 (42-76)
[2022-07-29] MEDS ORDERED: diphenhydrAMINE HCL 50 MG/ML VIAL IV ONE ×2 (14:30→17:30)
[2022-07-29 14:46] LABS: IRON, SERUM 5 ug/dl (50-175); TOTAL IRON BINDING CAPACITY 165 ug/dl (250-450)
[2022-07-29] MEDS: CEFEPIME 1 GM in IV D5W 50 ML IV SCH ×2 (15:00→18:59)
[2022-07-29] MEDS ORDERED: FLUCONAZOLE IN NS 100 MG in PREMIX 1 EA IV SCH ×2 (15:00)
--- NOTE | 2022-07-29 15:00 | NUR ---
RN NOTE: BENADRYL GIVEN ORDERED AT 1430. NON ADMIN FOR BENADRYL FOR 1730..
[2022-07-29 15:49] LABS: FERRITIN 111 ng/mL (8-388)
[2022-07-29] MEDS ORDERED: FUROSEMIDE 100 MG/10 ML VIAL IV ONE (18:30)
--- NOTE | 2022-07-29 19:22 | NUR ---
RN CLOSING NOTE: PT IN BED, EYES CLOSE. RESPONSIVE TO VERBAL STIMULI. NO S/S OF PAIN OR DISCOMFORT. NO SOB. ON BLOOD TRANSFUSION WITH NO A/R NOTED. IN STABLE CONDITION. ENDORSE TO NEXT SHIFT FOR CONTINUATION OF CARE.
--- NOTE | 2022-07-29 19:25 | NUR ---
RN NOTE Received pt in bed, eyes closed, pt responsive to pain stimuli only. Respirations even and unlabored, on O2 therapy via NC, well tolerated, no SOB, no acute respiratory distress noted. Attached to bedside inside sales supervisor current reading ST HR105. Pt with ongoing blood transfusion, well tolerated, no s/sx of transfusion reaction noted. Gt in placed, secured, and clamped, 0 residual noted. IRASEMA drain in placed and secured on L side and abd area, noted with serousanginous fluid. Fuller cath in placed, secured, noted with min dark yellow urine. Will cont. plan of care,
--- NOTE | 2022-07-29 20:17 | NUR ---
RN NOTE 1u PRBC transfusion ended at this time. No s/s of transfuison reaction noted.VSS. BP- 129/90, HR- 104, RR-16, T- 98.5
--- NOTE | 2022-07-29 21:00 | NUR ---
RN NOTE 2nd bag of 1U PRBC transfusion started at this time as ordered. No s/s of transfusion reaction noted. VS. BP- 131/92, HR- 105, RR- 16, T-98.6
[2022-07-29] MEDS ORDERED: VANCOMYCIN HCL 0.75 GM in IV D5W 250 ML IV SCH (23:00)
--- NOTE | 2022-07-29 23:10 | NUR ---
RN NOTE Vancomycin dose due at 07/29/22 2300 held as ordered d/t Vanco Trough level 28 tyrel on 07/29/222199. Spoke with Berna Pharmacist from [facility], per Berna continue to hold dose at this time. Noted.
[2022-07-30] VITALS (24 sets, daily range): BP systolic 120–151; BP diastolic 75–105
--- NOTE | 2022-07-30 | NUR ---
RN NOTE 2nd bag of 1U PRBC transfusion ended. Pt stable, no s/sx of transfusion reaction noted. VS- BP- 104/98, HR- 110, RR-16, T- 99.0
[2022-07-30] MEDS: *INSULIN REGULAR(HUMULIN R)HUM 100 UNIT/ML VIAL SQ PRN (00:21)
[2022-07-30] MEDS: BLOOD SUGAR DIAGNOSTIC 1 EACH STRIP IN SCH ×4 (00:28→18:41)
[2022-07-30] MEDS: METOCLOPRAMIDE HCL 10 MG/2 ML VIAL IV SCH ×4 (03:35→21:09)
[2022-07-30] MEDS: MORPHINE SULFATE INJ 4 MG/ML DISP.SYRIN IV PRN (03:35)
[2022-07-30 03:55] LABS: BASOPHILS % (AUTO) 0.1 % (0.0-2.0); EOSINOPHILS % (AUTO) 0.1 % (0.0-6.0); HEMATOCRIT 32 % (33-45); HEMOGLOBIN 10.1 g/dL (11.5-14.8); LYMPHOCYTES # (AUTO) 0.6 K/uL (0.8-4.8); LYMPHOCYTES % (AUTO) 5.2 % (20.0-44.0); MEAN CORPUSCULAR HGB CONC 32 g/dl (31.0-36.0); MEAN CORPUSCULAR VOLUME 83 fL (82-100); MONOCYTES # (AUTO) 0.3 K/uL (0.1-1.30); MONOCYTES % (AUTO) 2.9 % (2.0-12.0); NEUTROPHILS # (AUTO) 10.9 K/uL (1.8-8.9); NEUTROPHILS % (AUTO) 91.7 % (43.0-81.0); PLATELET COUNT (AUTO) 146 K/uL (150-450); RED BLOOD CELL COUNT(AUTO) 3.86 MIL/uL (4.0-5.2); WHITE BLOOD COUNT (AUTO) 11.8 K/uL (4.3-11.0)
[2022-07-30 04:14] LABS: CALCIUM, SERUM 7.9 mg/dL (8.5-10.1); CREATININE 4.2 mg/dL (0.6-1.3); MAGNESIUM 2.2 mg/dL (1.8-2.4); POTASSIUM 3.4 mmol/L (3.5-5.1)
[2022-07-30] MEDS: INSULIN REGULAR, HUMAN 100 UNIT/ML 3 ML VIAL SQ PRN ×3 (05:31→18:43)
[2022-07-30] MEDS: ENOXAPARIN SODIUM 30 MG/0.3 ML DISP.SYRIN SQ SCH (06:02)
--- NOTE | 2022-07-30 07:00 | NUR ---
RN NOTE Pt. in bed, asleep, respiration even and unlabored, easily arousable. On 2L O2 via NC, well tolerated, no SOB, no acute resp distress, O2 sat-99%. Afebrile. On s/p blood transfusion, no delayed ASE noted. Bedside ore fielder reading [id number]. Remains on d5 1/2ns IV running at 150ml/hr, well darryl. Gt in placed, clamped. Fuller cath in placed, patent and secured draining clear, yellow urine, output 1400ml throughout the shift. Abd output 75ml and L side IRASEMA drain output 50ml, draining serousanginous fluid. Will endorse to am shift for KARUNA.
--- NOTE | 2022-07-30 07:15 | NUR ---
RN NOTE Pt remains in stable condition. VSS. Report given to JAMARCUS Riley for KARUNA.
[2022-07-30] MEDS: IV D5/0.45 NACL 1,000 ML IV PRN ×3 (07:58→21:04)
[2022-07-30 08:07] LABS: IMMUNOGLOBULIN A, SERUM 411 mg/dL (87-352); IMMUNOGLOBULIN G, SERUM 1076 mg/dL (586-1602); IMMUNOGLOBULIN M, SERUM 97 mg/dL (26-217)
[2022-07-30] MEDS: PANTOPRAZOLE 40 MG VIAL IV SCH (09:28)
[2022-07-30] MEDS: METRONIDAZOLE 500MG/ NS 100ML 500 MG in PREMIX 1 EA IV SCH ×2 (12:38→21:09)
[2022-07-30] MEDS ORDERED: POTASSIUM CL. PREMIX PERIPHER. 50 ML IV SCH (13:00)
[2022-07-30] MEDS ORDERED: POTASSIUM CHLORIDE 10 MEQ/50 ML PREMIXED IVPB FOR PERIPHERAL LINE IV ONE (13:00)
[2022-07-30] MEDS: MICAFUNGIN SODIUM 100 MG in IV NS 0.9% 100 ML IV SCH (13:38)
[2022-07-30 15:07] LABS: *SPE A/G RATIO 0.8 (0.7-1.7); *SPE ALPHA-1-GLOBULIN 0.3 g/dL (0.0-0.4); *SPE ALPHA-2-GLOBULIN 0.7 g/dL (0.4-1.0); *SPE BETA GLOBULIN 1.1 g/dL (0.7-1.3); *SPE M-SPIKE Not Observed g/dL (Not Observed)
[2022-07-30] MEDS: POTASSIUM CL. PREMIX PERIPHER. 50 ML IV SCH ×2 (15:20→16:28)
--- NOTE | 2022-07-30 19:05 | NUR ---
ENDORSED TO BALTA FOR CONTINUITY OF CARE. PATIENT NO ACUTE DISTRESS NOTED. ALL DUE MEDS GIVEN.
--- NOTE | 2022-07-30 21:12 | NUR ---
ICU/RECEIVING TELLER PT PULLED OUT LEFT HAND HL AND PULLED OFF EKG LEADS. RESTRAINTS WERE APPLIED. WILL CONTINUE TO MONITOR THIS PT
[2022-07-31] VITALS (15 sets, daily range): BP systolic 124–149; BP diastolic 84–99
[2022-07-31] MEDS: BLOOD SUGAR DIAGNOSTIC 1 EACH STRIP IN SCH ×4 (00:40→18:35)
[2022-07-31] MEDS: INSULIN REGULAR, HUMAN 100 UNIT/ML 3 ML VIAL SQ PRN ×3 (00:41→15:07)
[2022-07-31] MEDS: MORPHINE SULFATE INJ 4 MG/ML DISP.SYRIN IV PRN ×6 (01:21→21:26)
--- NOTE | 2022-07-31 01:30 | NUR ---
ICU/BB SHOT PACKER PT APPEARED TO HAVE PAIN, PT ALSO VERBALIZED PAIN IN [place]. NOTIFED CHARGE NURSE WHO THEN GAVE MORPHINE 4MG IVP FOR PAIN RATED 10/10 TO STOMACH AREA PT HAS HX OF GASTRIC CANCER. WILL MONITOR THIS PT.
[2022-07-31] MEDS: IV D5/0.45 NACL 1,000 ML IV PRN ×3 (03:42→20:38)
[2022-07-31] MEDS: METRONIDAZOLE 500MG/ NS 100ML 500 MG in PREMIX 1 EA IV SCH ×3 (04:38→21:26)
[2022-07-31] MEDS: METOCLOPRAMIDE HCL 10 MG/2 ML VIAL IV SCH ×4 (04:38→21:26)
[2022-07-31 05:10] LABS: BASOPHILS % (AUTO) 0.2 % (0.0-2.0); EOSINOPHILS % (AUTO) 0.2 % (0.0-6.0); HEMATOCRIT 29 % (33-45); HEMOGLOBIN 9.4 g/dL (11.5-14.8); LYMPHOCYTES # (AUTO) 0.4 K/uL (0.8-4.8); LYMPHOCYTES % (AUTO) 4.7 % (20.0-44.0); MEAN CORPUSCULAR HGB CONC 32 g/dl (31.0-36.0); MEAN CORPUSCULAR VOLUME 80 fL (82-100); MONOCYTES # (AUTO) 0.3 K/uL (0.1-1.30); MONOCYTES % (AUTO) 3.3 % (2.0-12.0); NEUTROPHILS # (AUTO) 7.7 K/uL (1.8-8.9); NEUTROPHILS % (AUTO) 91.6 % (43.0-81.0); PLATELET COUNT (AUTO) 149 K/uL (150-450); RED BLOOD CELL COUNT(AUTO) 3.66 MIL/uL (4.0-5.2); WHITE BLOOD COUNT (AUTO) 8.4 K/uL (4.3-11.0)
[2022-07-31 05:22] LABS: CALCIUM, SERUM 7.5 mg/dL (8.5-10.1); CREATININE 2.3 mg/dL (0.6-1.3); MAGNESIUM 1.7 mg/dL (1.8-2.4); PHOSPHORUS 3.5 mg/dL (2.5-4.9)
[2022-07-31 05:25] LABS: POTASSIUM 2.3 mmol/L (3.5-5.1)
--- NOTE | 2022-07-31 05:30 | NUR ---
ICU/INTERNATIONAL MARKETING INTERN PT APPEARED TO HAVE PAIN, PT ALSO VERBALIZED PAIN IN [place]ER. NOTIFED CHARGE NURSE WHO THEN GAVE MORPHINE 4MG IVP FOR PAIN RATED 10/10 TO STOMACH AREA PT HAS HX OF GASTRIC CANCER. WILL MONITOR THIS PT.
[2022-07-31] MEDS: ENOXAPARIN SODIUM 30 MG/0.3 ML DISP.SYRIN SQ SCH (05:37)
--- NOTE | 2022-07-31 06:20 | NUR ---
ICU/MERCHANDISE COORDINATOR PT'S POTASSIUM IS 2.3 GOT ORDER TO REPLACE THIS, WHICH IS 40MEQ IVPB. CHARGE NURSE TOOK THIS ORDER AND WILL CARRY THIS OUT.
[2022-07-31] MEDS: POTASSIUM CL. PREMIX PERIPHER. 50 ML IV SCH ×5 (06:54→14:58)
[2022-07-31] MEDS ORDERED: POTASSIUM CHLORIDE 10 MEQ/50 ML PREMIXED IVPB FOR PERIPHERAL LINE IV ONE (07:00)
--- NOTE | 2022-07-31 07:11 | NUR ---
ICU/MACHINE CLEANER 40MEQ POTASSIUM IVPB WAS TAKEN OUT. WILL PASS ON TO DAY SHIFT NURSE.
[2022-07-31] MEDS ORDERED: VANCOMYCIN HCL 0.75 GM in IV D5W 250 ML IV SCH ×2 (09:00→10:00)
[2022-07-31] MEDS: PANTOPRAZOLE 40 MG VIAL IV SCH (09:11)
[2022-07-31] MEDS ORDERED: Magnesium 1GM/D5W 100ML PREMIX 100 ML IV SCH (11:30)
--- NOTE | 2022-07-31 15:35 | NUR ---
RN NOTE CALLED AND GAVE REPORT TO Piero CUMMINS RN, PATIENT WILL BE TRANSFERRED VIA ACLS PROTOCOL TOO ROOM 116-2.
--- NOTE | 2022-07-31 16:00 | NUR ---
GOT PATIENT FROM ICU, PT ASLEEP, IV ACCESS RIGHT UA MIDLINE, D51/2 NS RUNNING AT 150ML/HR. PT IS NPO, G-TUBE CLUMPED, NO G-TUBE FEEDING OR MEDS. WILL CONTINUE TO MONITOR.
[2022-07-31] MEDS: CEFEPIME 1 GM in IV D5W 50 ML IV SCH (17:31)
--- NOTE | 2022-07-31 19:03 | NUR ---
RN CLOSING NOTE PT ASLEEP, ON O2 VIA NC AT 4L/MIN. IV RUNNING D5 1/2NS AT 150ML/HR. MORPHINE FOR PAIN GIVEN AT 17:30, CONDITION IMPROVED. LAST BS MEASURING IS 73. HEMPHILL CATH IN PLACE. SAFETY MEASURES IMPLEMENTED. WILL ENDORSE TO THE DIAL MOUNTER NURSE FOR KARUNA.
--- NOTE | 2022-07-31 20:00 | NUR ---
RECEIVED PATIENT IN BED, ALERT AND AWAKE, DIVEHI SPEAKING ONLY, 4LPM VIA NC, RESTLESS AT TIMES. STRICTLY NPO, LEFT AND RIGHT QUADRANT IRASEMA DRAIN, SANGUINEOUS OUTPUT, PEG TUBE CLAMPED, SR ON THE TELE, SKIN INTACT, WILL GIVE MORPHINE WHEN DUE, PATIENT IS ALWAYS IN PAIN, EVIDENCED BY CONSTANT GRIMACE, MOANING AND RESTLESS. KEPT SAFE, WILL CONTINUE TO MONITOR.
[2022-07-31] MEDS: MICAFUNGIN SODIUM 100 MG in IV NS 0.9% 100 ML IV SCH (22:34)
[2022-07-31] MEDS ORDERED: Magnesium 1GM/D5W 100ML PREMIX 100 ML IV ONE (22:53)
[2022-07-31] MEDS: DEXTROSE 50%-WATER 50 ML DISP.SYRIN IV PRN (23:43)
--- NOTE | 2022-07-31 23:44 | NUR ---
GIVEN D50 BG 68, STRICTLY NPO, D5 1/2 NS AT 150 ML/HR NOT INFUSING YET DUE TO SEVERAL ABX AND MAGNESIUM TO BE INFUSED.
[2022-08-01] MEDS: BLOOD SUGAR DIAGNOSTIC 1 EACH STRIP IN SCH ×4 (00:01→17:49)
[2022-08-01 00:33] VITALS: BP 125/80
--- NOTE | 2022-08-01 01:20 | NUR ---
MICAFUNGIN AND MAGNESIUM IV GIVEN LATE.
[2022-08-01] MEDS: MORPHINE SULFATE INJ 4 MG/ML DISP.SYRIN IV PRN ×5 (02:43→21:52)
[2022-08-01] MEDS: METOCLOPRAMIDE HCL 10 MG/2 ML VIAL IV SCH ×4 (03:37→22:30)
[2022-08-01] MEDS: METRONIDAZOLE 500MG/ NS 100ML 500 MG in PREMIX 1 EA IV SCH ×3 (04:28→22:04)
[2022-08-01 04:59] VITALS: BP 140/93
[2022-08-01] MEDS: ENOXAPARIN SODIUM 30 MG/0.3 ML DISP.SYRIN SQ SCH (05:06)
[2022-08-01] MEDS: INSULIN REGULAR, HUMAN 100 UNIT/ML 3 ML VIAL SQ PRN ×2 (05:17→12:35)
--- NOTE | 2022-08-01 05:54 | NUR ---
ALERT/ORIENTED X2, PITCAIRN ISLANDER SPEAKING ONLY, 4LPM VIA NC, NO RESPIRATORY DISTRESS, ABDOMINAL PAIN, MORPHINE 4 MG IV Q4HRS WITH MODERATE RELIEF, RIGHT AND LEFT QUADRANT IRASEMA DRAIN, SANGUINEOUS OUTPUT, HEMPHILL CATHETER DRAINING WELL, PEG TUBE CLAMPED, STRICTLY NPO, CONTINUE ANTIBIOTIC AND ANTIFUNGAL IV, MONITOR AND REPLACE ELECTROLYTES.
[2022-08-01 06:24] LABS: BASOPHILS % (AUTO) 0.1 % (0.0-2.0); EOSINOPHILS % (AUTO) 0.5 % (0.0-6.0); HEMATOCRIT 34 % (33-45); HEMOGLOBIN 10.6 g/dL (11.5-14.8); LYMPHOCYTES # (AUTO) 0.4 K/uL (0.8-4.8); MEAN CORPUSCULAR HGB CONC 32 g/dl (31.0-36.0); MEAN CORPUSCULAR VOLUME 81 fL (82-100); MONOCYTES # (AUTO) 0.6 K/uL (0.1-1.30); MONOCYTES % (AUTO) 5.5 % (2.0-12.0); NEUTROPHILS # (AUTO) 9.2 K/uL (1.8-8.9); NEUTROPHILS % (AUTO) 89.9 % (43.0-81.0); PLATELET COUNT (AUTO) 195 K/uL (150-450); RED BLOOD CELL COUNT(AUTO) 4.15 MIL/uL (4.0-5.2); WHITE BLOOD COUNT (AUTO) 10.3 K/uL (4.3-11.0)
[2022-08-01 06:37] LABS: CALCIUM, SERUM 7.5 mg/dL (8.5-10.1); CREATININE 1.4 mg/dL (0.6-1.3); MAGNESIUM 1.9 mg/dL (1.8-2.4)
[2022-08-01 06:47] LABS: POTASSIUM 2.5 mmol/L (3.5-5.1)
[2022-08-01 08:00] VITALS: BP 126/85
[2022-08-01] MEDS: PANTOPRAZOLE 40 MG VIAL IV SCH (09:10)
[2022-08-01] MEDS: IV D5/0.45 NACL 1,000 ML IV PRN ×2 (09:17→20:38)
[2022-08-01] MEDS: POTASSIUM CL. PREMIX PERIPHER. 50 ML IV SCH ×11 (09:48→20:36)
[2022-08-01 12:00] VITALS: BP 136/90
[2022-08-01] MEDS: MICAFUNGIN SODIUM 100 MG in IV NS 0.9% 100 ML IV SCH (13:33)
[2022-08-01] MEDS: VANCOMYCIN HCL 0.75 GM in IV D5W 250 ML IV SCH (15:33)
[2022-08-01 16:00] VITALS: BP 146/89
[2022-08-01] MEDS: CEFEPIME 1 GM in IV D5W 50 ML IV SCH (16:45)
[2022-08-01] MEDS ORDERED: Sodium Phosphate 15 MMOL in IV NS 0.9% 245 ML IV ONE (18:00)
--- NOTE | 2022-08-01 19:40 | NUR ---
DATA CAPTURE CLERK OPENING NOTES RECEIVED PATIENT IN BED, AWAKE AND ALERT. A/O X 2-3, ROMANIAN SPEAKING. ON 4L OXYGEN VIA NC, BREATHING EVEN AND UNLABORED, NO S/S OF DISTRESS OR SOB NOTED AT THIS TIME. IV ACCESS BELINDA MIDLINE RUNNING D5 1/2 NS @ 70 ML/HR. PATIENT WITH EXTERNAL TOPOGRAPHICAL FIELD ASSISTANT WITH CURRENT READING OF ST. G-TUBE, CLAMPED. PATIENT HAS HEMPHILL CATH DRAINING YELLOW CLOUDY URINE. PATIENT HAS IRASEMA DRAIN IN PLACE AND DRAINING SEROSANGUINEOUS OUTPUT. SAFETY MEASURES IN PLACE WITH BED IN LOWEST LOCKED POSITION. SIDE RAILS UP X 2. HOB ELEVATED. CALL LIGHT WITHIN EASY REACH. WILL CONTINUE WITH THE PLAN OF CARE.
[2022-08-01 20:00] VITALS: BP 141/92
--- NOTE | 2022-08-01 20:08 | NUR ---
RN CLOSING NOTES PT IS STABLE, VITALS STABLE, ALL DUE MEDICATIONS GIVEN. 9/10 BAGS OF POTASSIUM CHLORIDE IV GIVEN ON MY SHIFT; NOTIFIED ONCOMING NURSE THAT THERE IS STILL ONE MORE TO BE GIVEN. REPORT GIVEN TO YEN RICKETTS FOR CONTINUATION OF CARE.
[2022-08-01] MEDS ORDERED: POTASSIUM CL. PREMIX PERIPHER. 50 ML ONE (20:34)
[2022-08-02] VITALS (7 sets, daily range): BP systolic 132–164; BP diastolic 76–104
[2022-08-02] MEDS: BLOOD SUGAR DIAGNOSTIC 1 EACH STRIP IN SCH ×4 (01:06→18:07)
[2022-08-02] MEDS: MORPHINE SULFATE INJ 4 MG/ML DISP.SYRIN IV PRN ×4 (03:10→20:22)
[2022-08-02] MEDS: GLUCERNA 1.2 1,000 ML BOTTLE NG PRN (03:52)
[2022-08-02] MEDS: METOCLOPRAMIDE HCL 10 MG/2 ML VIAL IV SCH ×4 (04:39→22:04)
[2022-08-02] MEDS: METRONIDAZOLE 500MG/ NS 100ML 500 MG in PREMIX 1 EA IV SCH ×3 (04:47→20:24)
[2022-08-02] MEDS: ACETAMINOPHEN 650 MG/20.3 ML UDC GT PRN (06:09)
[2022-08-02] MEDS: ENOXAPARIN SODIUM 30 MG/0.3 ML DISP.SYRIN SQ SCH (06:40)
[2022-08-02 06:41] LABS: BASOPHILS % (AUTO) 0.1 % (0.0-2.0); EOSINOPHILS % (AUTO) 0.2 % (0.0-6.0); HEMATOCRIT 31 % (33-45); HEMOGLOBIN 9.6 g/dL (11.5-14.8); LYMPHOCYTES # (AUTO) 0.4 K/uL (0.8-4.8); LYMPHOCYTES % (AUTO) 2.4 % (20.0-44.0); MEAN CORPUSCULAR HGB CONC 31 g/dl (31.0-36.0); MEAN CORPUSCULAR VOLUME 82 fL (82-100); MONOCYTES # (AUTO) 0.9 K/uL (0.1-1.30); MONOCYTES % (AUTO) 5.7 % (2.0-12.0); NEUTROPHILS # (AUTO) 14.2 K/uL (1.8-8.9); NEUTROPHILS % (AUTO) 91.6 % (43.0-81.0); PLATELET COUNT (AUTO) 229 K/uL (150-450); RED BLOOD CELL COUNT(AUTO) 3.76 MIL/uL (4.0-5.2); WHITE BLOOD COUNT (AUTO) 15.5 K/uL (4.3-11.0)
--- NOTE | 2022-08-02 07:00 | NUR ---
DIGITAL STRATEGY DIRECTOR OPENING NOTE PATIENT AWAKE, EMIRATI SPEAKING,ORIENTED X3. 02 4L N/C O2 SAT 97%, NO S/S OF RESPIRATORY DISTRESS NOTED. IV TO RAC INTACT. IV D51/2NS AT 70ML/HR. PATIENT DENIES PAIN AT PRESENT. PATIENT NPO STATUS, IRASEMA LEFT AND RIGHT DRAINING LIGHT YELLOWISH FLUID. G-TUBE SITE CLAMPED. F/C IN PLACE. SAFETY MEASURES IN PLACE. BED LOCKED TO THE LOWEST POSITION. CALL LIGHT AND TABLE WITHIN REACH. CONT. TO MONITOR.
[2022-08-02 07:05] LABS: BILIRUBIN,TOTAL 0.9 mg/dL (0.2-1.0); CALCIUM, SERUM 7.5 mg/dL (8.5-10.1); CREATININE 0.9 mg/dL (0.6-1.3); MAGNESIUM 1.7 mg/dL (1.8-2.4); PHOSPHORUS 2.2 mg/dL (2.5-4.9); POTASSIUM 3.3 mmol/L (3.5-5.1); TOTAL PROTEIN, SERUM 5.6 g/dL (6.4-8.2)
--- NOTE | 2022-08-02 07:38 | NUR ---
INFORMATION ASSURANCE ENGINEER CLOSING NOTES PATIENT IN BED, AWAKE AND ALERT. A/O X 2-3, THAI SPEAKING. ON 4L OXYGEN VIA NC, BREATHING EVEN AND UNLABORED, NO S/S OF DISTRESS OR SOB NOTED AT THIS TIME. ISSAC IV ACCESS ON RAC #22G, RUNNING D5 1/2 NS @ 70 ML/HR. PATIENT WITH EXTERNAL FLIGHT ATTENDANT INFLIGHT SERVICES WITH CURRENT READING OF ST. G-TUBE, CLAMPED. PATIENT HAS HEMPHILL CATH DRAINED 850CC YELLOW CLOUDY URINE. PATIENT HAS IRASEMA DRAINED 300CC SANGUINEOUS OUTPUT. SAFETY MEASURES MAINTAINED. ALL NEEDS ATTENDED. WILL ENDORSE TO THE NEXT SHIFT.
[2022-08-02 08:17] LABS: ALBUMIN 1.4 g/dL (3.4-5.0)
[2022-08-02] MEDS ORDERED: POTASSIUM PHOSPHATE MM 15 MMOL in IV NS 0.9% 250 ML IV SCH (09:00)
--- NOTE | 2022-08-02 09:01 | NUR ---
CONTRACT FORESTER NOTE I NOTIFIED TO DR. NAVA REGARDING CRITICAL VALUE ALBUMIN 1.4 AND HE SAID WE DO NOT TREAT THAT. I WILL NOTIFY TO THE PRIMARY PHYSICIAN ALSO.
[2022-08-02] MEDS: PANTOPRAZOLE 40 MG VIAL IV SCH (09:43)
[2022-08-02] MEDS: Magnesium 1GM/D5W 100ML PREMIX 100 ML IV SCH ×2 (10:17→11:33)
[2022-08-02] MEDS: POTASSIUM PHOSPHATE MM 7.5 MMOL in IV NS 0.9% 100 ML IV SCH ×2 (10:25→13:32)
[2022-08-02] MEDS: IV D5/0.45 NACL 1,000 ML IV PRN (13:38)
[2022-08-02] MEDS: MICAFUNGIN SODIUM 100 MG in IV NS 0.9% 100 ML IV SCH (13:39)
[2022-08-02] MEDS: VANCOMYCIN HCL 0.75 GM in IV D5W 250 ML IV SCH (14:55)
[2022-08-02] MEDS: SOD FERRIC GLUC 125 MG in IV NS 0.9% 100 ML IV SCH (15:26)
[2022-08-02] MEDS: CEFEPIME 1 GM in IV D5W 50 ML IV SCH (15:37)
[2022-08-02] MEDS: INSULIN REGULAR, HUMAN 100 UNIT/ML 3 ML VIAL SQ PRN (16:57)
--- NOTE | 2022-08-02 19:00 | NUR ---
ATTENDING PHYSICIAN CLOSING NOTE PATIENT A/A/OX3, 02 4L N/C SAT 96%, HOB ELEVATED NO S/S OF RESPIRATORY DISTRESS NOTED. ABDOMEN TENDER TO TOUCH, G-TUBE SITE DRAINING GREENISH FLUID, DRESSING CHANGED NEEDED MD AWARE. IRASEMA TO LEFT DRAINING BROWNISH COLOR FLUID MODERATE AMOUNT NOTED. IRASEMA TO THE RIGHT SIDE DRAINING MODERATE AMOUNT OF YELLOWISH FLUID. DRESSING CHANGED NEEDED. IV LUE MID-LINE INTACT. RIGHT ARM IV INTACT. PATIENT IS RECEIVING MULTIPLE ABX. F/C DRAINING CLEAR JESSE URINE. BILATERAL SOFT WRIST RESTRAINTS IN PLACE. PATIENT IS TOUCHING HER TUBES. MORPHINE 4MG IV Q4HR. EFFECTIVE FOR PAIN. SAFETY MEASURES IN PLACE, BED LOCKED TO THE LOWEST POSITION, CALL LIGHT AND TABLE WITHIN REACH. SIDE RAILS UP X4. I WILL ENDORSE TO THE FOLLOWING NURSE.
--- NOTE | 2022-08-02 19:44 | NUR ---
RN OPENING NOTES RECEIVED PATIENT IN BED, AWAKE, ALERT/ORIENTED X 2-3 WITH EPISODES OF CONFUSION, SAMMARIN[place] SPEAKING ONLY. ON O2 AT 4L/MIN VIA N/C AND PT TOLERATED WELL. BREATHING EVEN AND UNLABORED, IV ACCESS ON RAC #22G, DENT[place] MIDLINE, LT WRIST#22 G INTACT AND PATENT. NO S/S OF INFILTRATIONS. RUNNING D5 1/2 NS @ 70 ML/HR. G-TUBE CLAMPED. PT STILL C/O GENERALIZED BODY ACHE. NO ACUTE DISTRESS. HEMPHILL CATH IN PLACE. DRAINING BY GRAVITY. PATIENT HAS IRASEMA DRAINAGE ON LT AND RT QUADRANT. WITH SANGUINEOUS OUTPUT. ALL SAFETY MEASURES IN PLACE. BED IN LOWEST POSITION AND LOCKED. PLACE CALL LIGHT WITH IN REACH. WILL CONTINUE TO MONITOR.
--- NOTE | 2022-08-02 20:30 | NUR ---
RN NOTES: PT C/O SEVERE GENERALIZED BODY PAIN, SPECIALLY ABDOMEN AREA. MORPHINE GIVEN PRN ORDERED. WILL CONTINUE TO MONITOR
[2022-08-03] VITALS: BP 154/100
[2022-08-03] MEDS: INSULIN REGULAR, HUMAN 100 UNIT/ML 3 ML VIAL SQ PRN ×2 (00:44→06:11)
[2022-08-03] MEDS: BLOOD SUGAR DIAGNOSTIC 1 EACH STRIP IN SCH ×4 (00:44→17:52)
--- NOTE | 2022-08-03 00:45 | NUR ---
RN NOTES: PT'S BLOOD SUGAR 100. NO COVERAGE NEEDED. NO S/S OF HYPER/HYPOGLYCEMIA. WILL CONTINUE TO MONITOR
[2022-08-03 04:00] VITALS: BP 138/93
[2022-08-03] MEDS: METRONIDAZOLE 500MG/ NS 100ML 500 MG in PREMIX 1 EA IV SCH ×3 (04:40→20:54)
[2022-08-03] MEDS: MORPHINE SULFATE INJ 4 MG/ML DISP.SYRIN IV PRN ×2 (04:41→20:54)
[2022-08-03] MEDS: METOCLOPRAMIDE HCL 10 MG/2 ML VIAL IV SCH ×4 (04:41→21:04)
[2022-08-03] MEDS: ENOXAPARIN SODIUM 30 MG/0.3 ML DISP.SYRIN SQ SCH (05:35)
[2022-08-03 06:22] LABS: BASOPHILS % (AUTO) 0.1 % (0.0-2.0); EOSINOPHILS % (AUTO) 0.1 % (0.0-6.0); HEMATOCRIT 30 % (33-45); HEMOGLOBIN 9.5 g/dL (11.5-14.8); LYMPHOCYTES # (AUTO) 0.3 K/uL (0.8-4.8); LYMPHOCYTES % (AUTO) 1.8 % (20.0-44.0); MEAN CORPUSCULAR HGB CONC 32 g/dl (31.0-36.0); MEAN CORPUSCULAR VOLUME 82 fL (82-100); MONOCYTES # (AUTO) 0.6 K/uL (0.1-1.30); MONOCYTES % (AUTO) 3.5 % (2.0-12.0); NEUTROPHILS # (AUTO) 17.4 K/uL (1.8-8.9); NEUTROPHILS % (AUTO) 94.5 % (43.0-81.0); PLATELET COUNT (AUTO) 309 K/uL (150-450); WHITE BLOOD COUNT (AUTO) 18.4 K/uL (4.3-11.0)
[2022-08-03 06:32] LABS: CALCIUM, SERUM 7.2 mg/dL (8.5-10.1); CREATININE 0.7 mg/dL (0.6-1.3); MAGNESIUM 1.5 mg/dL (1.8-2.4); PHOSPHORUS 2.9 mg/dL (2.5-4.9); POTASSIUM 2.9 mmol/L (3.5-5.1)
--- NOTE | 2022-08-03 06:49 | NUR ---
RN CLOSING NOTES PATIENT IN BED, AWAKE, ALERT/ORIENTED X 2-3 WITH EPISODES OF CONFUSION, [place] SPEAKING ONLY. ON O2 AT 4L/MIN VIA N/C AND PT TOLERATED WELL. O2 SAT 96%. BREATHING EVEN AND UNLABORED, IV ACCESS ON RAC #22G, DENTON MIDLINE, LT WRIST#22 G INTACT AND PATENT. NO S/S OF INFILTRATIONS. RUNNING D5 1/2 NS @ 70 ML/HR. G-TUBE CLAMPED. NO FACIAL GRIMACING NOTED. NO ACUTE DISTRESS. HEMPHILL CATH IN PLACE. DRAINING BY GRAVITY. PATIENT HAS IRASEMA DRAINAGE ON LT AND RT QUADRANT. LT SIDE OUTPUT 300CC AND RT SIDE OUTPUT 200CC. ALL DUE MEDS GIVEN ORDERED. ALL SAFETY MEASURES IN PLACE. BED IN LOWEST POSITION AND LOCKED. PLACE CALL LIGHT WITH IN REACH. WILL ENDORSE TO MORNING SHIFT NURSE.
--- NOTE | 2022-08-03 07:30 | NUR ---
ASSEMBLY MACHINE OPERATOR AM NOTES RECEIVED PATIENT IN BED, AWAKE, ALERT/ORIENTED X 2-3 WITH EPISODES OF CONFUSION, BERMUDIAN SPEAKING ONLY. ON O2 AT 4L/MIN VIA N/C AND PT TOLERATED WELL. RESPIRATION UNLABORED, SINUS TACH HR 116 ON MONITOR. IV ACCESS ON RAC #22G, DENTON MIDLINE, LT WRIST#22 G INTACT AND PATENT. SITE CLEAR. WITH D5 1/2 NS @ 70 ML/HR. G-TUBE CLAMPED. PT STILL C/O GENERALIZED BODY ACHE. NO ACUTE DISTRESS. HEMPHILL CATH IN PLACE. DRAINING BY GRAVITY. PATIENT HAS IRASEMA DRAINAGE ON LT AND RT QUADRANT. WITH SANGUINEOUS OUTPUT. ALL SAFETY MEASURES IN PLACE. BED IN LOWEST POSITION AND LOCKED. PLACE CALL LIGHT WITH IN REACH. WILL CONTINUE TO MONITOR. Addendum: 08/03/22 at 1546 by ILENE HARRIS RN ADDENDUM PATIENT HAS BILATERAL RESTRAINT. RELEASED AND CJHECKED FOR CIRCULATION THEN Q 2 HOURS.
[2022-08-03 08:00] VITALS: BP 144/95
[2022-08-03] MEDS: PANTOPRAZOLE 40 MG VIAL IV SCH (09:09)
[2022-08-03] MEDS: IV D5/0.45 NACL 1,000 ML IV PRN (09:13)
--- NOTE | 2022-08-03 09:30 | NUR ---
RN NOTES DUE MEDS GIVEN.
[2022-08-03] MEDS ORDERED: POTASSIUM CHLORIDE 20 MEQ POWDER PACKET GT SCH (10:00)
[2022-08-03] MEDS: Magnesium 1GM/D5W 100ML PREMIX 100 ML IV SCH ×4 (10:21→13:20)
[2022-08-03] MEDS: POTASSIUM CL. PREMIX PERIPHER. 50 ML IV SCH ×8 (10:21→17:51)
[2022-08-03 12:00] VITALS: BP 149/90
[2022-08-03] MEDS: MICAFUNGIN SODIUM 100 MG in IV NS 0.9% 100 ML IV SCH (13:26)
[2022-08-03] MEDS: Potassium Chloride 20 MEQ in IV NS 0.9% 1,000 ML IV SCH (14:06)
[2022-08-03] MEDS: VANCOMYCIN 500 MG in IV D5W 100ml IV SCH (14:24)
[2022-08-03] MEDS: SOD FERRIC GLUC 125 MG in IV NS 0.9% 100 ML IV SCH (14:35)
[2022-08-03] MEDS: CEFEPIME 1 GM in IV D5W 50 ML IV SCH (15:27)
[2022-08-03 16:00] VITALS: BP 135/88
--- NOTE | 2022-08-03 19:19 | NUR ---
EVAPORATOR CLOSING NOTES PATIENT IN BED, AWAKE, ALERT/ORIENTED X 2-3 WITH EPISODES OF CONFUSION, LUXEMBOURGISH SPEAKING ONLY. ON O2 AT 4L/MIN VIA N/C AND PT TOLERATED WELL. RESPIRATION UNLABORED, SINUS TACH HR 107 ON MONITOR. IV ACCESS ON RFA #22G, DENTON MIDLINE, LT WRIST#22 G INTACT AND PATENT. SITE CLEAR. WITH NS + 20 MEQA KCL AT 75 ML/HR. INUSING WELL. G-TUBE CLAMPED. PT STILL C/O GENERALIZED BODY ACHE. NO ACUTE DISTRESS. HEMPHILL CATH IN PLACE. 400 ML OUTPUT. DRAINING BY GRAVITY. PATIENT HAS IRASEMA DRAINAGE ON LT AND RT QUADRANT. ALL SAFETY MEASURES IN PLACE. BED IN LOWEST POSITION AND LOCKED. PLACE CALL LIGHT WITH IN REACH. WILL ENDORSE TO NEXT SHIFT FOR KARUNA. PATIENT HAS BILATERAL RESTRAINT. RELEASED AND CJHECKED FOR CIRCULATION THEN Q 2 HOURS. LEFT IRASEMA DRAIN - GREENISH IN COLOR - 360 ML OUTPUT RIGHT IRASEMA DRAIN - YELLOW CLEAR YELLOW - 170 ML OUTPUT
--- NOTE | 2022-08-03 19:40 | NUR ---
SHOOTER'S HELPER OPENING NOTES RECEIVED PATIENT IN BED, AWAKE, ALERT/ORIENTED X 2-3 WITH EPISODES OF CONFUSION AND VERBALLY RESPONSIVE. CHADIAN SPEAKING ONLY. ON O2 AT 4L/MIN VIA N/C AND PT TOLERATED WELL. IV ACCESS ON RFA #22G, DENTON MIDLINE, LT WRIST#22 G INTACT AND PATENT. NO S/S OF INFILTRATIONS. RUNNING NS + 20 MEQ KCL AT 75 ML/HR. G-TUBE CLAMPED. FAMILY MEMBERS AT BEDSIDE. NO ACUTE DISTRESS. HEMPHILL CATH IN PLACE. DRAINING BY GRAVITY. PATIENT HAS IRASEMA DRAINAGE ON LT AND RT QUADRANT. ALL SAFETY MEASURES IN PLACE. BED IN LOWEST POSITION AND LOCKED. PLACE CALL LIGHT WITH IN REACH. WILL CONTINUE TO MONITOR
[2022-08-03 20:00] VITALS: BP 131/89
--- NOTE | 2022-08-03 21:05 | NUR ---
RN NOTES: PT C/O SEVERE GENERALIZED BODY PAIN. MORPHINE GIVEN PRN ORDERED. WILL CONTINUE TO MONITOR
[2022-08-04] VITALS: BP 139/88
[2022-08-04] MEDS: BLOOD SUGAR DIAGNOSTIC 1 EACH STRIP IN SCH ×4 (00:12→17:01)
[2022-08-04] MEDS: INSULIN REGULAR, HUMAN 100 UNIT/ML 3 ML VIAL SQ PRN ×2 (00:14→05:42)
--- NOTE | 2022-08-04 00:15 | NUR ---
RN NOTES: PT'S BLOOD SUGAR 75. NO COVERAGE NEEDED. NO S/S OF HYPER/HYPOGLYCEMIA. WILL CONTINUE TO MONITOR
[2022-08-04] MEDS: VANCOMYCIN 500 MG in IV D5W 100ml IV SCH ×2 (01:40→13:43)
[2022-08-04] MEDS: Potassium Chloride 20 MEQ in IV NS 0.9% 1,000 ML IV SCH (01:40)
[2022-08-04 04:00] VITALS: BP 152/90
[2022-08-04] MEDS: METOCLOPRAMIDE HCL 10 MG/2 ML VIAL IV SCH ×4 (04:29→21:32)
[2022-08-04] MEDS: METRONIDAZOLE 500MG/ NS 100ML 500 MG in PREMIX 1 EA IV SCH ×3 (04:30→22:21)
[2022-08-04] MEDS: MORPHINE SULFATE INJ 4 MG/ML DISP.SYRIN IV PRN (05:23)
[2022-08-04] MEDS: ENOXAPARIN SODIUM 30 MG/0.3 ML DISP.SYRIN SQ SCH (05:28)
--- NOTE | 2022-08-04 06:41 | NUR ---
HIDE SPREADER CLOSING NOTES PATIENT IN BED, AWAKE, ALERT/ORIENTED X 2-3 WITH EPISODES OF CONFUSION AND VERBALLY RESPONSIVE. BENINESE SPEAKING ONLY. ON O2 AT 4L/MIN VIA N/C AND PT TOLERATED WELL. O2 SAT 98%. IV ACCESS ON RFA #22G, DENTON MIDLINE, LT WRIST#22 G INTACT AND PATENT. NO S/S OF INFILTRATIONS. RUNNING NS WITH 20 MEQ KCL AT 75 ML/HR. G-TUBE CLAMPED. MORPHINE GIVEN AT 0523. NO ACUTE DISTRESS. HEMPHILL CATH IN PLACE. DRAINING BY GRAVITY. IRASEMA DRAINAGE ON LT AND RT QUADRANT, DRAINING WELL. BLOOD SUGAR IN THE MORNING 80. NO COVERAGE NEEDED. NO S/S OF HYPER/HYPOGLYCEMIA. ALL DUE MEDS GIVEN ORDERED. ALL SAFETY MEASURES IN PLACE. BED IN LOWEST POSITION AND LOCKED. PLACE CALL LIGHT WITH IN REACH. WILL ENDORSE TO MORNING SHIFT NURSE.
--- NOTE | 2022-08-04 07:25 | NUR ---
PULMONOLOGIST INTENSIVIST OPEN NOTE: ALERT X1. REORIENTED TO TIME, PLACE AND SITUATION. ON 02 4 LPM NC SATING AT 96 %. SPORTS EQUIPMENT SUPERVISOR SINUS TACHY 110. IV ON RIGHT FOREARM, LEFT UPPER ARM MIDLINE, LEFT FOREARM PATENT. NO S/S OF COMPLICATIONS. GT CLAMPED. BILATERAL ABDOMEN IRASEMA IN PLACE. HEMPHILL CATHETER DRAINING YELLOW URINE. HOB ELEVATED. BED IN LOW POSITION, LOCKED, EXIT ALARM ON. CALL LIGHT IN REACH. NO S/S OF PAIN OR DISCOMFORT.
[2022-08-04 08:00] VITALS: BP 156/91
[2022-08-04 08:08] LABS: CALCIUM, SERUM 7.5 mg/dL (8.5-10.1); CREATININE 0.6 mg/dL (0.6-1.3); MAGNESIUM 1.8 mg/dL (1.8-2.4); PHOSPHORUS 2.5 mg/dL (2.5-4.9); POTASSIUM 3.5 mmol/L (3.5-5.1)
[2022-08-04 08:10] LABS: BASOPHILS % (AUTO) 0.1 % (0.0-2.0); EOSINOPHILS % (AUTO) 0.2 % (0.0-6.0); HEMATOCRIT 31 % (33-45); HEMOGLOBIN 9.1 g/dL (11.5-14.8); LYMPHOCYTES # (AUTO) 0.4 K/uL (0.8-4.8); LYMPHOCYTES % (AUTO) 2.5 % (20.0-44.0); MEAN CORPUSCULAR HGB CONC 29 g/dl (31.0-36.0); MEAN CORPUSCULAR VOLUME 86 fL (82-100); MONOCYTES # (AUTO) 0.7 K/uL (0.1-1.30); MONOCYTES % (AUTO) 4.9 % (2.0-12.0); NEUTROPHILS # (AUTO) 13.4 K/uL (1.8-8.9); NEUTROPHILS % (AUTO) 92.3 % (43.0-81.0); PLATELET COUNT (AUTO) 384 K/uL (150-450); RED BLOOD CELL COUNT(AUTO) 3.65 MIL/uL (4.0-5.2); WHITE BLOOD COUNT (AUTO) 14.5 K/uL (4.3-11.0)
--- NOTE | 2022-08-04 09:56 | NUR ---
RECEIVED REPORT FROM KARAN RICKETTS. PATIENT NOTED SLEEPING, EASILY AWAKEN, ALERT X1. ON 02 4 LPM NC TOLERATING WELL, NO SOB NOTED, RESPIRATION EVEN AND UNLABORED. ON TRAINING AND DEVELOPMENT REP SINUS TACHY. IV ON RIGHT FOREARM, LEFT UPPER ARM MIDLINE, LEFT FOREARM PATENT. PATENT AND INTACT, FLUSHES WELL,WITH IV FLUIDS RUNNING ORDERED. GT CLAMPED. BILATERAL ABDOMEN IRASEMA IN PLACE. HEMPHILL CATHETER DRAINING YELLOW URINE. HOB ELEVATED. BED IN LOW POSITION, LOCKED, EXIT ALARM ON. CALL LIGHT IN REACH. NO S/S OF PAIN OR DISCOMFORT. PLAN OF CARE CONTINUE.
[2022-08-04] MEDS: PANTOPRAZOLE 40 MG VIAL IV SCH (10:02)
--- NOTE | 2022-08-04 11:20 | NUR ---
ASKED J LUIS PLATE GAUGER IF WE CAN START GT FEEDING,PER J LUIS PLATE GAUGER IF THE UPPER GT TEST WAS DONE, INFORMED PLATE GAUGER THAT PATIENT'S SON REFUSED, TRIED CALLING PATIENT'S SON NO ANSWER, WILL TRY TO CALL AGAIN LATER.
--- NOTE | 2022-08-04 12:05 | NUR ---
INFORMED DR. MIJARES PATIENT'S BLOOD SUGAR, WITH ORDER TO DC NS WITH 20 MEQ IV FLUIDS AND CHANGED TO D5 1/2 NS@75ML/HR, NOTED AND CARRIED OUT.
[2022-08-04] MEDS: MICAFUNGIN SODIUM 100 MG in IV NS 0.9% 100 ML IV SCH (12:18)
[2022-08-04] MEDS: IV D5/0.45 NACL 1,000 ML IV PRN (12:25)
[2022-08-04] MEDS ORDERED: IV D5/0.45 NACL 1,000 ML IV ONE (12:30)
[2022-08-04] MEDS ORDERED: METRONIDAZOLE 500 MG TABLET GT SCH (13:00)
[2022-08-04] MEDS: CEFEPIME 1 GM in IV D5W 50 ML IV SCH (14:03)
[2022-08-04] MEDS: SOD FERRIC GLUC 125 MG in IV NS 0.9% 100 ML IV SCH (14:47)
[2022-08-04] MEDS ORDERED: IOHEXOL-300 100 ML VIAL IV ONE (15:17)
[2022-08-04] MEDS ORDERED: IV NS 0.9% 250 ML IV ONE (15:17)
[2022-08-04] MEDS ORDERED: CT SWABBABLE VALVE TRANS SET 1 EA INFUS.SET MC ONE (15:17)
--- NOTE | 2022-08-04 15:24 | NUR ---
PATIENT IS OUT FOR CT.
--- NOTE | 2022-08-04 15:39 | NUR ---
PATIENT BACK FROM CT.
--- NOTE | 2022-08-04 18:00 | NUR ---
DR. TORRES AT THE BEDSIDE, INFORMED OF THE CT RESULTS, WITH ORDER FOR MRI WITH OR WITHOUT CONTRAST, NOTED AND CARRIED OUT.
--- NOTE | 2022-08-04 18:20 | NUR ---
MS RN CLOSING NOTES PATIENT IN BED AWAKE, FAMILY AT THE BEDSIDE, ALERT X1. ON ROOM AIR, TOLERATING WELL, NO SOB NOTED, RESPIRATION EVEN AND UNLABORED. IV ON RIGHT FOREARM, LEFT UPPER ARM MIDLINE, LEFT FOREARM PATENT AND INTACT, FLUSHES WELL,WITH IV FLUIDS RUNNING ORDERED. GT CLAMPED. BILATERAL ABDOMEN IRASEMA IN PLACE NOTED WITH 250ML SEROSANGUIENOUS DRAINAGE. HEMPHILL CATHETER DRAINING YELLOW URINE. HOB ELEVATED. BED IN LOW POSITION, LOCKED, EXIT ALARM ON. CALL LIGHT IN REACH. NO S/S OF PAIN OR DISCOMFORT. WILL ENDORSE TO NIGHT NURSE FOR KARUNA.
--- NOTE | 2022-08-04 18:40 | NUR ---
CALLED PATIENT'S SON MAKAYLA NO ANSWER, WILL ENDORSE TO NIGHT NURSE.
--- NOTE | 2022-08-04 19:00 | NUR ---
REHABILITATION ASSISTANT opening notes received pt resting in bed, awake, breathing even and unlabored, in stable condition, safety measures in place will continue to monitor,
[2022-08-04 21:00] VITALS: BP 146/97
[2022-08-04] MEDS ORDERED: METRONIDAZOLE 500MG/ NS 100ML 200 ML IV ONE (22:12)
[2022-08-05] MEDS: INSULIN REGULAR, HUMAN 100 UNIT/ML 3 ML VIAL SQ PRN ×3 (00:55→12:57)
[2022-08-05] MEDS: BLOOD SUGAR DIAGNOSTIC 1 EACH STRIP IN SCH ×4 (00:55→18:00)
[2022-08-05] MEDS: VANCOMYCIN 500 MG in IV D5W 100ml IV SCH ×3 (02:06→22:16)
[2022-08-05] MEDS: METOCLOPRAMIDE HCL 10 MG/2 ML VIAL IV SCH ×4 (04:56→22:16)
[2022-08-05] MEDS: METRONIDAZOLE 500MG/ NS 100ML 500 MG in PREMIX 1 EA IV SCH ×3 (04:57→21:47)
[2022-08-05 05:00] VITALS: BP 142/84
[2022-08-05] MEDS: ENOXAPARIN SODIUM 30 MG/0.3 ML DISP.SYRIN SQ SCH (05:46)
[2022-08-05 06:06] LABS: BASOPHILS % (AUTO) 0.2 % (0.0-2.0); HEMATOCRIT 28 % (33-45); HEMOGLOBIN 8.9 g/dL (11.5-14.8); LYMPHOCYTES # (AUTO) 0.3 K/uL (0.8-4.8); LYMPHOCYTES % (AUTO) 2.3 % (20.0-44.0); MEAN CORPUSCULAR HGB CONC 31 g/dl (31.0-36.0); MEAN CORPUSCULAR VOLUME 82 fL (82-100); MONOCYTES # (AUTO) 0.8 K/uL (0.1-1.30); MONOCYTES % (AUTO) 5.4 % (2.0-12.0); NEUTROPHILS % (AUTO) 92.1 % (43.0-81.0); PLATELET COUNT (AUTO) 416 K/uL (150-450); RED BLOOD CELL COUNT(AUTO) 3.48 MIL/uL (4.0-5.2); WHITE BLOOD COUNT (AUTO) 15.2 K/uL (4.3-11.0)
[2022-08-05 06:32] LABS: CALCIUM, SERUM 7.1 mg/dL (8.5-10.1); CREATININE 0.5 mg/dL (0.6-1.3); MAGNESIUM 1.4 mg/dL (1.8-2.4); PHOSPHORUS 2.5 mg/dL (2.5-4.9)
--- NOTE | 2022-08-05 06:40 | NUR ---
critical relayed to MD potassium 2.4 awaiting response
[2022-08-05 06:55] LABS: POTASSIUM 2.4 mmol/L (3.5-5.1)
--- NOTE | 2022-08-05 07:00 | NUR ---
RN NOTE RECEIVED PATIENT IN BED, ALERT, ORIENTED X2 WITH CONFUSION. PATIENT HAS TWO SURGICAL IRASEMA DRAINAGE. LEFT SIDE BROWN COLOR, RIGHT SIDE YELLOW. PATIENT NOTED WITH BILATERAL RESTRAINS, REMOVED AND CHECKED FOR SKIN AND CIRCULATION AND WILL BE RE EVALUATED THROUGHOUT SHIFT PER HOSPITAL PROTOCOL. PATIENT HAS IV ON DENTON ML RUNNING D5N5 AT 75ML/HR. RFA KENNA 22 AND LFA KENNA 22 BOTH PATENT AND FLUSHING WELL. PATIENTS POTASSIUM AT 2.4 PER NIGHT NURSEMD HAS BEEN NOTIFIED AND AWAITING ORDERS. ALL SAFETY PRECAUTIONS TAKEN, HOB ELEVATED, BED IN LOWEST AND LOCKED POSITION BED AND CALL LIGHT WITHIN REACH. WILL CONTINUE TO MONITOR.
[2022-08-05] MEDS: IV D5/0.45 NACL 1,000 ML IV PRN (07:20)
--- NOTE | 2022-08-05 07:50 | NUR ---
GUEST SERVICE REPRESENTATIVE closing noted pt resting in bed, breathing even and unlabored, 0 s/s of acute distress, all due meds given per md orders, tolerated well, all basic needs met and anticipated, will continue to monitor
[2022-08-05] MEDS: CEFEPIME 1 GM in IV D5W 50 ML IV SCH ×2 (08:48→17:24)
[2022-08-05] MEDS: PANTOPRAZOLE 40 MG VIAL IV SCH (08:48)
[2022-08-05] MEDS: Magnesium 1GM/D5W 100ML PREMIX 100 ML IV SCH ×2 (11:03→12:03)
[2022-08-05 11:07] LABS: BILIRUBIN,URINE NEGATIVE (NEGATIVE); COLOR,URINE DARK YELLOW (YELLOW); LEUKOCYTE ESTERASE ,URINE NEGATIVE (NEGATIVE); NITRITE, URINE POSITIVE (NEGATIVE); PH,URINE 6.5 (5.0-8.0); PROTEIN,URINE 2+ mg/dl (NEGATIVE); UGLUCOSE TRACE mg/dL (NEGATIVE); UROBILINOGEN,URINE 0.2 EU/dL (0.2)
[2022-08-05] MEDS: POTASSIUM CL. PREMIX PERIPHER. 50 ML IV SCH ×6 (11:21→17:12)
[2022-08-05 11:27] LABS: BACTERIA,URINE Moderate /HPF (None Seen); SQUAMOUS EPITHELIAL CELL,UR Few /HPF (None Seen); WBC,URINE 21-50 /HPF (0-3)
[2022-08-05 13:00] VITALS: BP 127/69
[2022-08-05] MEDS ORDERED: POTASSIUM CL. PREMIX PERIPHER. 50 ML IV SCH (13:00)
[2022-08-05] MEDS: MICAFUNGIN SODIUM 100 MG in IV NS 0.9% 100 ML IV SCH (13:41)
[2022-08-05] MEDS: SOD FERRIC GLUC 125 MG in IV NS 0.9% 100 ML IV SCH (15:34)
--- NOTE | 2022-08-05 15:34 | NUR ---
RN NOTE\ JUST RECEIVED FERRLECIT FROM PHARMACY.
--- NOTE | 2022-08-05 18:18 | NUR ---
RN NOTE PATIENT TAKEN TO MRI AT THIS MOMENT.
--- NOTE | 2022-08-05 19:04 | NUR ---
RN NOTE RECEIVED REPORT FROM LAB FOR CRITICAL POTASSIUM OF 2.4 ROSEANN GARRETT LITIGATION PARALEGAL NOTIFIED.
--- NOTE | 2022-08-05 19:30 | NUR ---
RN NOTE PATIENT RETURNED TO FLOOR FROM MRI
--- NOTE | 2022-08-05 19:49 | NUR ---
RN CLOSING NOTE RECEIVED PATIENT IN BED, ALERT, ORIENTED X2 WITH CONFUSION. PATIENT HAS TWO SURGICAL IRASEMA DRAINAGE. LEFT SIDE BROWN COLOR, RIGHT SIDE YELLOW. PATIENT WITH BILATERAL RESTRAINS, REMOVED AND CHECKED FOR SKIN AND CIRCULATION THROUGHOUT SHIFT PER HOSPITAL PROTOCOL. PATIENT HAS IV ON DENTON ML RUNNING D5N5 AT 75ML/HR. RFA KENNA 22 AND LFA KENNA 22 BOTH PATENT AND FLUSHING WELL. PATIENTS POTASSIUM AT 2.4 MD NOTIFIED AND CHARGE NURSE HAVE BEEN NOTIFIED. PATIENT WAS REPOSITIONED EVERY TWO HOURS. ALL SAFETY PRECAUTIONS TAKEN, HOB ELEVATED, BED IN LOWEST AND LOCKED POSITION BED AND CALL LIGHT WITHIN REACH. REPORT GIVEN TO SCULPTURE CONSERVATOR NURSE.
--- NOTE | 2022-08-05 20:00 | NUR ---
MS RN OPENING NOTES: RECEIVED PATIENT AWAKE IN BED, BED IN LOW POSITION CALL LIGHTS WITHIN REACH, NO COMPLAIN OF PAIN AND DISCOMFORT AT THIS TIME,ON O2 INHALATION AT 3LPM SATURAITNG WELL, PATIENT HAS RIGHT AND LEFT IRASEMA DRAIN, INTACT, NO LEAKS, IV LINE AT DENTON ML WITH ONGOING D5NS@75ML/HR INFUSING WELL, ON BILATERAL WRIST RESTRAINT RENEWED, PATIENT KEPT CLEAN AND DRY ALL NEEDS MET WILL CONTINUE TO MONITOR.
[2022-08-05] MEDS ORDERED: POTASSIUM CHLORIDE 10 MEQ/50 ML PREMIXED IVPB FOR PERIPHERAL LINE IV ONE (20:30)
[2022-08-05 21:00] VITALS: BP 149/92
[2022-08-06] MEDS: CEFEPIME 1 GM in IV D5W 50 ML IV SCH ×3 (01:19→16:25)
--- NOTE | 2022-08-06 01:55 | NUR ---
RN NOTES: BLOOD SUGAR-114/ NO INSULIN GIVEN PER SLIDING SCALE.
[2022-08-06] MEDS: METOCLOPRAMIDE HCL 10 MG/2 ML VIAL IV SCH ×4 (04:41→22:05)
[2022-08-06 05:00] VITALS: BP 150/93
[2022-08-06] MEDS: METRONIDAZOLE 500MG/ NS 100ML 500 MG in PREMIX 1 EA IV SCH ×3 (05:19→20:50)
[2022-08-06] MEDS: BLOOD SUGAR DIAGNOSTIC 1 EACH STRIP IN SCH ×5 (06:00→23:13)
[2022-08-06] MEDS: VANCOMYCIN 500 MG in IV D5W 100ml IV SCH ×3 (06:45→22:49)
--- NOTE | 2022-08-06 07:01 | NUR ---
RN NOTES: BLOOD SUGAR-119/ NO INSULIN GIVEN PER SLIDING SCALE.
--- NOTE | 2022-08-06 07:02 | NUR ---
MS RN CLOSING NOTES: PATIENT SLEEP IN BED AROUSABLE TO VERBAL STIMULI, BED IN LOW POSITION CALL LIGHTS WITHIN REACH, NO COMPLAIN OF PAIN AND DISCOMFORT AT THIS TIME, ON ROOM O2 INHALATION AT 3LPM SATURATING WELL, PATIENT HAS RIGHT IRASEMA DRAINAGE 300CC OUTPUT, AND LEFT IRASEMA DRAINAGE-320 OUTPUT,ON HEMPHILL CATHETER-600CC URINE OUTPUT, PATIENT KEPT CLEAN AND DRY ALL NEEDS MET ENDORSE TO INCOMING SHIFT.
[2022-08-06 07:29] LABS: BASOPHILS % (AUTO) 0.1 % (0.0-2.0); HEMATOCRIT 28 % (33-45); HEMOGLOBIN 8.7 g/dL (11.5-14.8); LYMPHOCYTES # (AUTO) 0.3 K/uL (0.8-4.8); MEAN CORPUSCULAR HGB CONC 32 g/dl (31.0-36.0); MEAN CORPUSCULAR VOLUME 80 fL (82-100); MONOCYTES # (AUTO) 0.7 K/uL (0.1-1.30); MONOCYTES % (AUTO) 4.8 % (2.0-12.0); NEUTROPHILS # (AUTO) 13.4 K/uL (1.8-8.9); NEUTROPHILS % (AUTO) 93.1 % (43.0-81.0); PLATELET COUNT (AUTO) 453 K/uL (150-450); RED BLOOD CELL COUNT(AUTO) 3.42 MIL/uL (4.0-5.2); WHITE BLOOD COUNT (AUTO) 14.4 K/uL (4.3-11.0)
--- NOTE | 2022-08-06 07:32 | NUR ---
MS RN OPENING NOTES: RECEIVED PATIENT ON BED , ,ON O2 INHALATION AT 3LPM SATURATING WELL, NO SOB OR DISTRESS NOTED , NO C/O OF PAIN AND DISCOMFORT , NPO STATUS MAINTAINED , PATIENT HAS RIGHT AND LEFT IRASEMA DRAIN, INTACT, NO LEAKS, IV ACCESS RIGHT FA , LEFT FA AND IV LINE AT DENTON ML WITH ONGOING D5NS@75ML/HR INFUSING WELL, ON BILATERAL WRIST RESTRAINT , SAFETY MEASURES PROVIDED , SIDE RAILS UP X 2 , CALL LIGHT WITHIN REACH , PATIENT KEPT CLEAN AND DRY ALL NEEDS MET WILL CONTINUE TO MONITOR.
[2022-08-06 07:48] LABS: CALCIUM, SERUM 7.1 mg/dL (8.5-10.1); CREATININE 0.6 mg/dL (0.6-1.3); MAGNESIUM 1.8 mg/dL (1.8-2.4); PHOSPHORUS 2.9 mg/dL (2.5-4.9); POTASSIUM 2.9 mmol/L (3.5-5.1)
[2022-08-06] MEDS: PANTOPRAZOLE 40 MG VIAL IV SCH (08:35)
[2022-08-06 08:56] VITALS: BP 158/90
[2022-08-06] MEDS: POTASSIUM CL. PREMIX PERIPHER. 50 ML IV SCH ×6 (09:49→16:04)
[2022-08-06] MEDS: Potassium Chloride 20 MEQ in IV D5W 1,000 ML IV SCH (12:33)
[2022-08-06 13:00] VITALS: BP 158/90
[2022-08-06] MEDS: MICAFUNGIN SODIUM 100 MG in IV NS 0.9% 100 ML IV SCH (13:08)
--- NOTE | 2022-08-06 14:00 | NUR ---
RN NOTES PATIENT WENT FOR CT GUIDED DRAIN OF THE ABDOMEN ABSCESSES
--- NOTE | 2022-08-06 14:30 | NUR ---
RN NOTES FERLECIT IV NOT GIVEN YET PATIENT WENT OT A PROCEDURE FOR CT GUIDED DRAIN ABSCESSES ON THE ABDOMEN PHARMACY MADE AWARE
--- NOTE | 2022-08-06 15:30 | NUR ---
RN NOTES POTASSIUM IV DUE AT 1500 NOT GIVEN YET PATIENT STILL ON PROCEDURE FOR CT GUIDED OF THE ABDOMEN DRAIN ABSCESSES
[2022-08-06] MEDS: SOD FERRIC GLUC 125 MG in IV NS 0.9% 100 ML IV SCH (16:24)
[2022-08-06] MEDS: INSULIN REGULAR, HUMAN 100 UNIT/ML 3 ML VIAL SQ PRN (18:13)
--- NOTE | 2022-08-06 19:06 | NUR ---
MS RN CLOSING NOTES: PATIENT ON BED , ,ON O2 INHALATION AT 4LPM SATURATING WELL, NO SOB OR DISTRESS NOTED , NO C/O OF PAIN AND DISCOMFORT , NPO STATUS MAINTAINED , PATIENT HAS RIGHT AND LEFT IRASEMA DRAIN, INTACT, NO LEAKS, IV ACCESS RIGHT FA , LEFT FA AND IV LINE AT DENTON ML WITH ONGOING D5 WATER WITH KCL 20 MEQ @75 ML /HOUR , POTASSIUM WAS REPLACED WITH 6 BAG OF 10 MEQ IV , ALL DUE MEDS GIVEN ORDERED , ON BILATERAL WRIST RESTRAINT AND OFF AT THIS TIME , SAFETY MEASURES PROVIDED , SIDE RAILS UP X 2 , CALL LIGHT WITHIN REACH , PATIENT KEPT CLEAN AND DRY AND ENDORSED TO NEXT SHIFT
--- NOTE | 2022-08-06 19:30 | NUR ---
MS RN OPENING NOTE RECEIVED PATIENT IN BED, WITH EYES CLOSED, BUT EASY TO AROUSE AND RESPONDS TO VERBAL AND TACTILE STIMULI. AFEBRILE AND NOT IN ANY FORM OF ACUTE DISTRESS. ON O2 INHALATION VIA NASAL CANNULA AT 4LPM. WITH IV ACCESS ON DENTON MIDLINE RUNNING WITH D5W WITH KCL 20MEQ AT 75ML/HR., R FOREARM 22G-SL AND LFA 22G-SL. WITH INTACT L AND R IRASEMA DRAIN. WITH INTACT HEMPHILL CATHETER, DRAINING WELL WITH YELLOW URINE OUTPUT. SAFETY MEASURES IN PLACE. KEPT BED IN LOCKED AND IN LOW POSITION. SIDE RAILS UP X2. ADVISED TO USE THE CALL LIGHT WHEN IN NEED OF ASSISTANCE.
[2022-08-06 21:00] VITALS: BP 155/100
[2022-08-07] MEDS: CEFEPIME 1 GM in IV D5W 50 ML IV SCH ×2 (00:55→11:03)
[2022-08-07] MEDS: Potassium Chloride 20 MEQ in IV D5W 1,000 ML IV SCH ×2 (00:55→14:49)
[2022-08-07] MEDS: METOCLOPRAMIDE HCL 10 MG/2 ML VIAL IV SCH ×4 (03:42→22:05)
[2022-08-07] MEDS: METRONIDAZOLE 500MG/ NS 100ML 500 MG in PREMIX 1 EA IV SCH ×3 (04:12→20:24)
[2022-08-07 05:00] VITALS: BP 145/76
[2022-08-07] MEDS: VANCOMYCIN 500 MG in IV D5W 100ml IV SCH ×3 (05:51→22:04)
[2022-08-07] MEDS: BLOOD SUGAR DIAGNOSTIC 1 EACH STRIP IN SCH ×3 (06:09→18:22)
--- NOTE | 2022-08-07 06:30 | NUR ---
MS RN CLOSING NOTE PATIENT IN BED, SLEEPING INTERMITTENTLY. AFEBRILE AND NOT IN ANY FORM OF ACUTE DISTRESS. ON O2 INHALATION VIA NASAL CANNULA AT 4LPM. WITH IV ACCESS ON DENTON MIDLINE RUNNING WITH D5W WITH KCL 20MEQ AT 75ML/HR., R FOREARM 22G-SL AND LFA 22G-SL. WITH INTACT L AND R IRASEMA DRAIN, NOTED WITH MILKY OUTPUT ON LEFT DRAIN AND CLEAR YELLOW ON RIGHT DRAIN. WITH INTACT HEMPHILL CATHETER, DRAINING WELL WITH YELLOW URINE OUTPUT. MONITORED FOR ANY S/SX. OF HYPO/HYPERGLYCEMIA. MEDICATED ORDERED. CONTINUOUS ON IV ATB, MONITORED FOR ANY ADVERSE REACTION. SAFETY MEASURES IN PLACE. KEPT BED IN LOCKED AND IN LOW POSITION. SIDE RAILS UP X2. ADVISED TO USE THE CALL LIGHT WHEN IN NEED OF ASSISTANCE. ALL NURSING NEEDS ATTENDED. ENDORSED TO INCOMING SHIFT FOR CONTINUITY OF CARE.
[2022-08-07 07:28] LABS: BASOPHILS % (AUTO) 0.1 % (0.0-2.0); EOSINOPHILS % (AUTO) 0.1 % (0.0-6.0); HEMATOCRIT 26 % (33-45); HEMOGLOBIN 8.2 g/dL (11.5-14.8); LYMPHOCYTES # (AUTO) 0.4 K/uL (0.8-4.8); LYMPHOCYTES % (AUTO) 3.1 % (20.0-44.0); MEAN CORPUSCULAR HGB CONC 31 g/dl (31.0-36.0); MEAN CORPUSCULAR VOLUME 83 fL (82-100); MONOCYTES # (AUTO) 0.6 K/uL (0.1-1.30); MONOCYTES % (AUTO) 4.7 % (2.0-12.0); NEUTROPHILS # (AUTO) 12.3 K/uL (1.8-8.9); PLATELET COUNT (AUTO) 386 K/uL (150-450); RED BLOOD CELL COUNT(AUTO) 3.18 MIL/uL (4.0-5.2); WHITE BLOOD COUNT (AUTO) 13.4 K/uL (4.3-11.0)
[2022-08-07 07:44] LABS: CALCIUM, SERUM 6.8 mg/dL (8.5-10.1); CREATININE 0.6 mg/dL (0.6-1.3); MAGNESIUM 1.3 mg/dL (1.8-2.4); PHOSPHORUS 2.4 mg/dL (2.5-4.9)
[2022-08-07 08:18] LABS: POTASSIUM 2.6 mmol/L (3.5-5.1)
[2022-08-07] MEDS: PANTOPRAZOLE 40 MG VIAL IV SCH (11:03)
[2022-08-07] MEDS: Magnesium 1GM/D5W 100ML PREMIX 100 ML IV SCH ×3 (11:03→18:26)
[2022-08-07] MEDS: MICAFUNGIN SODIUM 100 MG in IV NS 0.9% 100 ML IV SCH (13:35)
[2022-08-07 14:00] VITALS: BP 150/93
[2022-08-07] MEDS ORDERED: DIATR MEGLU/DIATRIZOATE SODIUM 120 ML BOTTLE (GASTROGRAPHIN) ONE ×2 (15:42→16:53)
[2022-08-07] MEDS ORDERED: Sodium Phosphate 15 MMOL in IV NS 0.9% 245 ML IV SCH (16:00)
--- NOTE | 2022-08-07 19:00 | NUR ---
RN OPENING NOTE RECEIVED PT AWAKE IN BED. PT IS A/O 2-3, ABLE TO MAKE NEEDS KNOWN. PT IS IN 4LO2 INHALATION VIA NASAL CANNULA, TOLERATING WELL, BREATHING EVEN AND UNLABORED @ THIS TIME. PT IV PRESENT LEFT UPPER ARM MIDLINE RUNNING D5W W/ KCL 20MEQ @ 75ML/HR, RIGHT FOREARM #22G SALINE LOCK, LEFT FOREARM #22GSALINE LOCK, ALL PATENT, INTACT AND FLUSHES WELL W/ NO S &SX OF FILTRATION @ SITE NOTED. PT GT IS IN PLACE, WITH NO FEEDING @ THIS TIME. PT HEMPHILL CATHETER IS IN PLACE DRAINING YELLOW COLORED URINE W/ URINE OUTPUT OF 30ML. PT RIGHT AND LEFT HALEY PRAT IS IN PLACE DRAINING FLUID. SAFETY MEASURES IS IN PLACE. BED IN LOWEST AND LOCKED POSITION. SIDE RAILS UP X 4. BEDSIDE TABLE AND CALL LIGHT IS EASY REACH. BED ALARM IS ON. WILL CONTINUE TO MONITOR PT ACCORDINGLY.
[2022-08-07] MEDS ORDERED: GADOTERATE MEGLUMINE 10 MMOL/20 ML VIAL IV ONE (19:13)
--- NOTE | 2022-08-07 20:08 | NUR ---
MS RN CLOSING NOTE PATIENT IN BED, AFEBRILE NO S/S OF ACUTE DISTRESS. ON O2 INHALATION VIA NASAL CANNULA AT 4LPM. WITH IV ACCESS ON DENTON MIDLINE RUNNING WITH D5W WITH KCL 20MEQ AT 75ML/HR. R FOREARM 22G-SL AND LFA 22G-SL. WITH INTACT L AND R IRASEMA DRAIN, NOTED WITH MILKY OUTPUT ON LEFT DRAIN AND CLEAR YELLOW ON RIGHT DRAIN. WITH INTACT HEMPHILL CATHETER, DRAINING WELL WITH YELLOW URINE OUTPUT. MONITORED FOR ANY S/SX. OF HYPO/HYPERGLYCEMIA. MEDICATED ORDERED. CONTINUOUS ON IV ATB, MONITORED FOR ANY ADVERSE REACTION. SAFETY MEASURES IN PLACE. KEPT BED IN LOCKED AND IN LOW POSITION. SIDE RAILS UP X2. ADVISED TO USE THE CALL LIGHT WHEN IN NEED OF ASSISTANCE. ALL NURSING NEEDS ATTENDED. ENDORSED TO INCOMING SHIFT FOR CONTINUITY OF CARE.
[2022-08-07 21:00] VITALS: BP 148/91
[2022-08-08] MEDS: BLOOD SUGAR DIAGNOSTIC 1 EACH STRIP IN SCH ×4 (00:49→17:11)
[2022-08-08] MEDS: INSULIN REGULAR, HUMAN 100 UNIT/ML 3 ML VIAL SQ PRN ×2 (00:51→05:25)
--- NOTE | 2022-08-08 00:51 | NUR ---
HELD INSULIN REGULAR D/T PT BLOOD GLUCOSE OF 158. THE PT IS NPO. WILL CONTINUE TO MONITOR.
[2022-08-08] MEDS: METOCLOPRAMIDE HCL 10 MG/2 ML VIAL IV SCH ×4 (03:10→21:17)
[2022-08-08] MEDS: METRONIDAZOLE 500MG/ NS 100ML 500 MG in PREMIX 1 EA IV SCH ×3 (04:24→20:09)
[2022-08-08 05:00] VITALS: BP 150/100
[2022-08-08] MEDS: VANCOMYCIN 500 MG in IV D5W 100ml IV SCH ×3 (05:24→21:17)
--- NOTE | 2022-08-08 05:26 | NUR ---
HELD INSULIN REGULAR D/T PT BLOOD GLUCOSE OF 146. THE PT IS NPO. WILL CONTINUE TO MONITOR.
[2022-08-08 06:26] LABS: BASOPHILS % (AUTO) 0.3 % (0.0-2.0); EOSINOPHILS % (AUTO) 0.3 % (0.0-6.0); HEMATOCRIT 29 % (33-45); HEMOGLOBIN 8.9 g/dL (11.5-14.8); LYMPHOCYTES # (AUTO) 0.5 K/uL (0.8-4.8); LYMPHOCYTES % (AUTO) 3.5 % (20.0-44.0); MEAN CORPUSCULAR HGB CONC 31 g/dl (31.0-36.0); MEAN CORPUSCULAR VOLUME 82 fL (82-100); MONOCYTES # (AUTO) 0.7 K/uL (0.1-1.30); MONOCYTES % (AUTO) 4.9 % (2.0-12.0); NEUTROPHILS # (AUTO) 12.1 K/uL (1.8-8.9); PLATELET COUNT (AUTO) 388 K/uL (150-450); RED BLOOD CELL COUNT(AUTO) 3.48 MIL/uL (4.0-5.2); WHITE BLOOD COUNT (AUTO) 13.3 K/uL (4.3-11.0)
[2022-08-08 06:53] LABS: CALCIUM, SERUM 6.6 mg/dL (8.5-10.1); CREATININE 0.6 mg/dL (0.6-1.3); MAGNESIUM 1.7 mg/dL (1.8-2.4); PHOSPHORUS 2.3 mg/dL (2.5-4.9)
--- NOTE | 2022-08-08 06:56 | NUR ---
RN CLOSING NOTE PT AWAKE & RESTING COMFORTABLY IN BED. PT IS A/O 2-3, RESPONSIVE. PT IS IN RA @ W/ NO S&SX OF RESPIRATORY DISTRESS @THIS TIME. PT IV PRESENT LEFT UPPER ARM MIDLINE RUNNING D5W W/ KCL 20MEQ @ 75ML/HR, RIGHT FOREARM #22G SALINE LOCK, LEFT FOREARM #22GSALINE LOCK, ALL PATENT, INTACT AND FLUSHES WELL W/ NO S &SX OF FILTRATION @ SITE NOTED. PT GT IS IN PLACE, WITH NO FEEDING @ THIS TIME. PT HEMPHILL CATHETER IS IN PLACE DRAINING YELLOW COLORED URINE. PT RIGHT AND LEFT HALEY PRAT IS IN PLACE DRAINING FLUID. SAFETY MEASURES IS IN PLACE. BED IN LOWEST AND LOCKED POSITION. SIDE RAILS UP X 4. BEDSIDE TABLE AND CALL LIGHT IS EASY REACH. BED ALARM IS ON. WILL ENDORSE PT TO THE NEXT SHIFT FOR KARUNA.
--- NOTE | 2022-08-08 07:00 | NUR ---
RECEIVED REPORT FROM MADAN OF LABORATORY ON PT POTASSIUM VALUES, 2.5. ENDORSED TO JULIAN HAN LVN TO INFORM MD AND TO F/U FOR ORDERS.
[2022-08-08 07:07] LABS: POTASSIUM 2.5 mmol/L (3.5-5.1)
--- NOTE | 2022-08-08 07:10 | NUR ---
SUPERVISOR URANIUM PROCESSING OPENING NOTE PATIENT AWAKE, ALERT AND ORIENTED X2 MILD FORGETFUL. DENIES PAIN, 02 SAT IN ROOM AIR 99% NO S/S OF RESPIRATORY DISTRESS NOTED. HOB ELEVATED PATIENT IS NPO, TAKING IVF AND MULTIPLE ANTIBIOTICS. G-TUBE SITE DRAINING SMALL AMOUNT OF GREENISH FLUID. IRASEMA TO LEFT DRAINING MODERATE AMOUNT OF BROWNISH FLUID, TO THE RIGHT ABDOMEN IRASEMA DRAINING YELLOWISH FLUID IN MODERATE AMOUNT. SACRAL AREA MILD REDNESS NOTED, PATIENT REPOSITIONED VERY OFTEN. F/C DRAINING JESSE YELLOW URINE. SAFETY MEASURES IN PLACE. BED LOCKED TO THE LOWEST POSITION, CALL LIGHT AND TABLE WITHIN REACH. SIDE RAILS UP X3. CONT. TO MONITOR.
[2022-08-08] MEDS: PANTOPRAZOLE 40 MG VIAL IV SCH (08:19)
[2022-08-08] MEDS: CEFEPIME 1 GM in IV D5W 50 ML IV SCH (08:21)
[2022-08-08] MEDS: POTASSIUM CL. PREMIX PERIPHER. 50 ML IV SCH ×6 (09:25→14:40)
--- NOTE | 2022-08-08 12:12 | NUR ---
INTERACTIVE PRODUCER NTE GLUCOSE LEVEL 106 NO INSULIN COVERAGE
[2022-08-08] MEDS: Magnesium 1GM/D5W 100ML PREMIX 100 ML IV SCH ×2 (12:25→13:31)
[2022-08-08 13:00] VITALS: BP 152/94
[2022-08-08] MEDS: CEFEPIME 2 GM in IV D5W 100 ML IV SCH ×2 (13:05→20:09)
[2022-08-08] MEDS: MICAFUNGIN SODIUM 100 MG in IV NS 0.9% 100 ML IV SCH (13:41)
--- NOTE | 2022-08-08 14:00 | NUR ---
RECEIVED REPORT FROM JULIAN COHEN, PATIENT ALERT AND VERBALLY RESPONSIVE, NO SOB NOTED, RESPIRATION EVEN AND UNLABORED. PLAN OF CARE CONTINUE.
[2022-08-08] MEDS ORDERED: Sodium Phosphate 15 MMOL in IV NS 0.9% 245 ML IV SCH (16:00)
--- NOTE | 2022-08-08 18:20 | NUR ---
HOUSE CLEANER CLOSING NOTE PATIENT AWAKE, ALERT AND ORIENTED X2 WITH CONFUSION, DENIES PAIN AT THIS TIME. 02 SAT IN ROOM AIR 99% NO S/S OF RESPIRATORY DISTRESS NOTED. HOB ELEVATED. PATIENT IS NPO, TAKING IVF AND MULTIPLE ANTIBIOTICS. G-TUBE SITE CLEAN DRY AND INTACT. NOTED WITH LEFT AND RIGHT IRASEMA DRAIN NOTED WITH BOTH SEROUS DRAINAGE. F/C PATENT AND INTACT, DRAINING JESSE COLORED URINE. SAFETY MEASURES IN PLACE. BED LOCKED TO THE LOWEST POSITION, CALL LIGHT AND TABLE WITHIN REACH. SIDE RAILS UP X3. WILL ENDORSE TO NIGHT NURSE FOR KARUNA.
--- NOTE | 2022-08-08 19:20 | NUR ---
RN NOTE RECEIVED PT FOR CONTINUITY OF CARE. PATIENT A/OX2; PANAMANIAN SPEAKING IN NO S/SX OF ACUTE DISTRESS AT THIS TIME; CURRENTLY ON ROOM AIR; WITH 02 SAT >95% AT THIS TIME. WITH IV ACCESS ON L UA ML, L FA#22 AND R FA#22 ALL PATENT, INTACT AND FLUSHING WELL. WITH 1/2NS+40MEQ POTASSIUM CHLORIDE @75ML/HR. WITH LAP SX SITE SECURED AND INTACT WITH DRESSING. IRASEMA DRAIN ON BOTH L AND R ABDOMEN DRAINING WELL SEROUS OUTPUT. HEMPHILL CATH IN PLACE, MODERATE URINE OUTPUT NOTED. WILL ENSURE SAFETY MEASURES WITHIN THE SHIFT. PATIENT BED ALARM IS ON. HEAD OF BED ELEVATED. BED IS LOCKED, IN LOWEST POSITION AND SIDE RAILS UP. CALL LIGHT WITHIN REACH OF THE PATIENT. WILL CONTINUE TO MONITOR AND REASSESS FOR ANY CHANGES AND WILL CARRY OUT ANY ONGOING AND ACTIVE MD ORDER.
[2022-08-08 20:00] VITALS: BP 156/99
--- NOTE | 2022-08-08 20:50 | NUR ---
RN NOTE CALLED [facility] ( for medical records including pathology and operation report physician notes) ,S/W PNEUMATIC TUBE OPERATOR WAS ADVISED THAT MEDICAL RECORDS IS CLOSED AND WILL BE OPEN BY WEDNESDAY FOR ANY REQUEST AND INQUIRY, THEIR EXT [phone] fax: [phone]. WILL ENDORSE FOR FO[place] [facility] [place] DRAIN TILE MACHINE OPERATOR MADE AWARE. Addendum: 08/08/22 at 2056 by HARDY ANAYA RN AWARE; DR TORRES.
[2022-08-09] VITALS: BP 149/99
[2022-08-09] MEDS: BLOOD SUGAR DIAGNOSTIC 1 EACH STRIP IN SCH ×4 (00:30→17:14)
[2022-08-09] MEDS: INSULIN REGULAR, HUMAN 100 UNIT/ML 3 ML VIAL SQ PRN ×2 (00:31→05:17)
[2022-08-09 04:00] VITALS: BP 151/94
--- NOTE | 2022-08-09 04:00 | NUR ---
RN NOTE PATIENT REMAINED TO BE IN NO SIGNS OF ACUTE RESPIRATORY DISTRESS , SAFE ENVIRONMENT MAINTAINED FOR PT. AM PATIENT CARE ASSISTANCE RENDERED. WILL CONTINUE TO MONITOR AND REASSESS FOR ANY CHANGES THROUGHOUT THE SHIFT.
[2022-08-09] MEDS: METOCLOPRAMIDE HCL 10 MG/2 ML VIAL IV SCH ×4 (04:10→21:08)
[2022-08-09] MEDS: CEFEPIME 2 GM in IV D5W 100 ML IV SCH ×3 (04:10→20:13)
[2022-08-09] MEDS: METRONIDAZOLE 500MG/ NS 100ML 500 MG in PREMIX 1 EA IV SCH ×3 (04:11→20:54)
[2022-08-09] MEDS: VANCOMYCIN 500 MG in IV D5W 100ml IV SCH ×3 (05:08→22:14)
[2022-08-09 06:31] LABS: BASOPHILS % (AUTO) 0.4 % (0.0-2.0); EOSINOPHILS % (AUTO) 0.1 % (0.0-6.0); HEMATOCRIT 27 % (33-45); HEMOGLOBIN 8.7 g/dL (11.5-14.8); LYMPHOCYTES # (AUTO) 0.5 K/uL (0.8-4.8); LYMPHOCYTES % (AUTO) 4.2 % (20.0-44.0); MEAN CORPUSCULAR HGB CONC 33 g/dl (31.0-36.0); MEAN CORPUSCULAR VOLUME 80 fL (82-100); MONOCYTES # (AUTO) 0.5 K/uL (0.1-1.30); MONOCYTES % (AUTO) 4.8 % (2.0-12.0); NEUTROPHILS # (AUTO) 10.1 K/uL (1.8-8.9); NEUTROPHILS % (AUTO) 90.5 % (43.0-81.0); PLATELET COUNT (AUTO) 330 K/uL (150-450); RED BLOOD CELL COUNT(AUTO) 3.35 MIL/uL (4.0-5.2); WHITE BLOOD COUNT (AUTO) 11.1 K/uL (4.3-11.0)
--- NOTE | 2022-08-09 06:50 | NUR ---
RN NOTE PATIENT REMAINS IN ROOM IN NO SIGNS OF RESPIRATORY DISTRESS, PATIENT STILL ON ROOM AIR;TOLERATING WELL SATURATING @ >95% SP02. SR ON MONITOR. ON NPO. LAP SITE DRESSING REMAINED TO BE INTACT AND NO SIGNS OF INFECTION. IRASEMA DRAIN STILL SECURED AND DRAINING WELL. R IRASEMA 120CC SEROUS OUTPUT AND L IRASEMA 20CC SEROUS OUTPUT. SAFETY MEASURES IMPLEMENTED, BED IN LOWEST POSITION, LOCKED, SIDE RAILS UP, CALL LIGHT WITHIN REACH. ALL NEEDS AND ORDERS ADDRESSED DURING THE SHIFT. IV ACCESS MAINTAINED INTACT, SECURED AND FLUSHING WELL. IV FLUIDS RUNNING ORDERED. ALL DUE MEDS GIVEN ORDERED & SCHEDULED ; PATIENT TOLERATED WELL. PATIENT KEPT CLEAN AND COMFORTABLE WITHIN THE SHIFT. [facility] [place] REMINDER TO GET MED RECORDS FROM [facility] IN [place] PER DR. TORRES'S REQUEST. PATIENT ENDORSED TO INCOMING SHIFT RN WITH STABLE VITAL SIGN AND FOR CONTINUITY OF CARE.
[2022-08-09 07:01] LABS: CALCIUM, SERUM 7.1 mg/dL (8.5-10.1); CREATININE 0.4 mg/dL (0.6-1.3); MAGNESIUM 1.6 mg/dL (1.8-2.4); PHOSPHORUS 2.8 mg/dL (2.5-4.9)
--- NOTE | 2022-08-09 07:37 | NUR ---
RADIO SURVEY WORKER CLOSING NOTE PATIENT AWAKE, ALERT AND ORIENTED X2 WITH CONFUSION, DENIES PAIN AT THIS TIME. 02 SAT IN ROOM AIR 99% NO S/S OF RESPIRATORY DISTRESS NOTED. HOB ELEVATED. PATIENT IS NPO, TAKING IVF AND MULTIPLE ANTIBIOTICS. G-TUBE SITE CLEAN DRY AND INTACT. NOTED WITH LEFT AND RIGHT IRASEMA DRAIN NOTED WITH BOTH SEROUS DRAINAGE. F/C PATENT AND INTACT, DRAINING JESSE COLORED URINE. SAFETY MEASURES IN PLACE. BED LOCKED TO THE LOWEST POSITION, CALL LIGHT AND TABLE WITHIN REACH. SIDE RAILS UP X3. WILL CONTINUE TO MONITOR
[2022-08-09 08:00] VITALS: BP 157/94
[2022-08-09] MEDS: PANTOPRAZOLE 40 MG VIAL IV SCH (08:09)
[2022-08-09] MEDS: MORPHINE SULFATE INJ 4 MG/ML DISP.SYRIN IV PRN ×2 (08:16→16:03)
[2022-08-09] MEDS: POTASSIUM CL. PREMIX PERIPHER. 50 ML IV SCH ×7 (10:08→15:26)
[2022-08-09] MEDS: Magnesium 1GM/D5W 100ML PREMIX 100 ML IV SCH ×2 (11:50→13:45)
[2022-08-09 12:00] VITALS: BP 145/62
[2022-08-09] MEDS: MICAFUNGIN SODIUM 100 MG in IV NS 0.9% 100 ML IV SCH (13:58)
[2022-08-09 16:00] VITALS: BP 152/105
--- NOTE | 2022-08-09 18:45 | NUR ---
BRASS CLEANER CLOSING NOTE PATIENT AWAKE, ALERT AND ORIENTED X2 WITH CONFUSION, DENIES PAIN AT THIS TIME. 02 SAT IN ROOM AIR 99% NO S/S OF RESPIRATORY DISTRESS NOTED. HOB ELEVATED. PATIENT IS NPO, TAKING IVF AND MULTIPLE ANTIBIOTICS. G-TUBE SITE CLEAN DRY AND INTACT. NOTED WITH LEFT AND RIGHT IRASEMA DRAIN NOTED WITH BOTH SEROUS DRAINAGE. F/C PATENT AND INTACT, DRAINING JESSE COLORED URINE.G TUBE CONNECTED TOTHE G TUBE WITH INTERMITTENT LOW SUCTIONING SAFETY MEASURES IN PLACE. BED LOCKED TO THE LOWEST POSITION, CALL LIGHT AND TABLE WITHIN REACH. SIDE RAILS UP X3. WILL ENDORSE TONIGHT SHIFT NURSE
--- NOTE | 2022-08-09 19:30 | NUR ---
IT OPERATIONS MANAGER OPENING NOTES - RECEIVED PATIENT SLEEPING, EASY TO AROUSE BUT LETHARGIC. HOB IN SEMI DIETZ'S. A/O X2. BREATHING EVEN AND NON-LABORED ON ROOM AIR. NO C/O PAIN OR DISCOMFORT AT THIS TIME. ON TELE MONITOR READING SINUS TACHYCARDIA AT 102 BPM. HAS THE FF IV ACCESS: LEFT UPPER ARM MIDLINE #18G AND SALINE LOCKED; RIGHT FOREARM #22G WITH KCL 40MEQ IN 0.45% NS RUNNING AT 75 ML/HR. NO S/S OF INFILTRATION NOTED. HAS INDWELLING HEMPHILL CATHETER DRAINING TO BAG BY GRAVITY. HAS PEG TUBE CONNECTED TO INTERMITTENT SUCTION. HAS BILATERAL IRASEMA DRAIN. SAFETY PRECAUTIONS IN PLACE: BED LOCKED AND IN LOW POSITION, SIDE RAILS UP X2, CALL LIGHT WITHIN REACH. WILL CONTINUE PLAN OF CARE.
[2022-08-09 20:00] VITALS: BP 144/101
--- NOTE | 2022-08-09 22:00 | NUR ---
RECEIVED CALL FROM EMERITA OF [facility] ASKING FOR CLINICALS, SHE ONLY HAVE THE FACESHEET. FAX# [phone], CALLBACK# [phone] OPTION 2.
[2022-08-10] VITALS: BP 158/96
[2022-08-10] MEDS: BLOOD SUGAR DIAGNOSTIC 1 EACH STRIP IN SCH ×5 (00:14→23:53)
--- NOTE | 2022-08-10 01:06 | NUR ---
NOTIFIED HOSPITALIST TAMI THAT PATIENT'S SBP HAS BEEN IN THE 140-150 FOR THE PAST 3 DAYS. SHE IS NPO. PER MD, NO NEW ORDERS.
[2022-08-10 04:00] VITALS: BP 149/91
[2022-08-10] MEDS: CEFEPIME 2 GM in IV D5W 100 ML IV SCH ×3 (04:11→21:56)
[2022-08-10] MEDS: METOCLOPRAMIDE HCL 10 MG/2 ML VIAL IV SCH ×4 (04:11→21:24)
[2022-08-10] MEDS: METRONIDAZOLE 500MG/ NS 100ML 500 MG in PREMIX 1 EA IV SCH ×3 (05:07→21:17)
[2022-08-10] MEDS: VANCOMYCIN 500 MG in IV D5W 100ml IV SCH ×3 (06:17→23:28)
[2022-08-10] MEDS: INSULIN REGULAR, HUMAN 100 UNIT/ML 3 ML VIAL SQ PRN (06:29)
--- NOTE | 2022-08-10 06:45 | NUR ---
VANCO WAS GIVEN SINCE LEVEL WAS STILL 20 WHEN I WAS ABOUT TO ADMINISTER THE IV ABX.
--- NOTE | 2022-08-10 07:00 | NUR ---
UMBRELLA CUTTER CLOSING NOTES - PATIENT AWAKE, ABLE TO VERBALIZE NEEDS. A/O X3, MILD RESTLESSNESS NOTED. HOB KEPT ELEVATED. SATURATING WELL ON ROOM AIR. AFEBRILE. TELE MONITOR SHOWS SINUS RHYTHM AT 98 BPM. RIGHT FOREARM IV ACCESS REMOVED. LEFT UPPER ARM MIDLINE INTACT, PATENT AND FLUSHING. CLEAR YELLOW URINE OUTPUT NOTED. BROWNISH DRAINAGE FROM G-TUBE NOTED. SEROUS AND BROWNISH NOTED IN IRASEMA DRAINS. ALL DUE MEDS GIVEN AND NEEDS ATTENDED. SAFETY MEASURES MAINTAINED. WILL ENDORSE TO AM NURSE FOR KARUNA.
--- NOTE | 2022-08-10 07:13 | NUR ---
DIRECTOR PRISON OPEN NOTE PATIENT AWAKE, ALERT AND ORIENTED X3 , DENIES PAIN AT THIS TIME. 02 SAT IN ROOM AIR 99% NO S/S OF RESPIRATORY DISTRESS NOTED. HOB ELEVATED. PATIENT IS NPO, TAKING IVF AND MULTIPLE ANTIBIOTICS. G-TUBE SITE CLEAN DRY AND INTACT CONFECTED TO THE INTERMITTENT LOW SUCTIONING , SUCTION DARK BROWN FLUID NOTED WITH LEFT AND RIGHT IRASEMA DRAIN NOTED WITH RIGHT SITE YELLOW C;EAR FLUID , LEFT SIDE DARK BROWN FLUID . F/C PATENT AND INTACT, DRAINING CL;EAR YELLOW COLORED URINE. SAFETY MEASURES IN PLACE. BED LOCKED TO THE LOWEST POSITION, CALL LIGHT AND TABLE WITHIN REACH. SIDE RAILS UP X3. WILL CONTINUE TO MONITOR
[2022-08-10 07:19] LABS: CALCIUM, SERUM 7.7 mg/dL (8.5-10.1); CREATININE 0.5 mg/dL (0.6-1.3); MAGNESIUM 1.8 mg/dL (1.8-2.4); POTASSIUM 4.4 mmol/L (3.5-5.1)
[2022-08-10 08:00] VITALS: BP 150/100
[2022-08-10] MEDS: MORPHINE SULFATE INJ 4 MG/ML DISP.SYRIN IV PRN ×3 (08:06→21:24)
[2022-08-10] MEDS: PANTOPRAZOLE 40 MG VIAL IV SCH (08:47)
[2022-08-10] MEDS: HYDROMORPHONE 1 MG/1 ML DISP.SYRIN IV PRN (09:42)
--- NOTE | 2022-08-10 10:46 | NUR ---
RN NOTE CALLED TO THE PATIENT'S DAUGHTER TO FIND OUT THE DOCTOR NAME IN [facility] , , LEFT MESSAGE .PATIENT DOSENT REMEMBER , WILL TRY TO REACH DAUGHTER LATER .
[2022-08-10 12:00] VITALS: BP 148/99
[2022-08-10 12:56] LABS: PHOSPHORUS 2.9 mg/dL (2.5-4.9)
[2022-08-10 12:58] LABS: ALBUMIN 1.4 g/dL (3.4-5.0)
[2022-08-10] MEDS ORDERED: TPN/PPN PER PHARMACY IV PRN (13:00)
[2022-08-10] MEDS: IV 1/2NS 1000 ML 1,000 ML IV SCH (13:07)
[2022-08-10] MEDS: MICAFUNGIN SODIUM 100 MG in IV NS 0.9% 100 ML IV SCH (13:27)
[2022-08-10 13:50] LABS: BASOPHILS # (AUTO) 0.1 K/uL (0.0-0.2); BASOPHILS % (AUTO) 1.1 % (0.0-2.0); EOSINOPHILS % (AUTO) 0.2 % (0.0-6.0); HEMATOCRIT 31 % (33-45); HEMOGLOBIN 9.6 g/dL (11.5-14.8); LYMPHOCYTES # (AUTO) 0.4 K/uL (0.8-4.8); LYMPHOCYTES % (AUTO) 3.1 % (20.0-44.0); MEAN CORPUSCULAR HGB CONC 31 g/dl (31.0-36.0); MEAN CORPUSCULAR VOLUME 85 fL (82-100); MONOCYTES # (AUTO) 0.5 K/uL (0.1-1.30); MONOCYTES % (AUTO) 4.4 % (2.0-12.0); NEUTROPHILS # (AUTO) 10.8 K/uL (1.8-8.9); NEUTROPHILS % (AUTO) 91.2 % (43.0-81.0); PLATELET COUNT (AUTO) 413 K/uL (150-450); RED BLOOD CELL COUNT(AUTO) 3.65 MIL/uL (4.0-5.2); WHITE BLOOD COUNT (AUTO) 11.8 K/uL (4.3-11.0)
[2022-08-10 13:57] LABS: BILIRUBIN,DIRECT 0.2 mg/dL (0.0-0.2); BILIRUBIN,TOTAL 0.5 mg/dL (0.2-1.0)
[2022-08-10] MEDS ORDERED: TPN BAG#1 IV SCH ×4 (14:00)
[2022-08-10] MEDS: FAT EMULSION 20% 500 ML in PREMIX 1 EA IV SCH (14:32)
[2022-08-10 16:00] VITALS: BP 150/70
--- NOTE | 2022-08-10 18:37 | NUR ---
SIGN PAINTER APPRENTICE CLOSING NOTES -PATIENT AWAKE, ABLE TO VERBALIZE NEEDS. A/O X3, HOB KEPT ELEVATED. SATURATING WELL ON ROOM AIR 98 % TELE MONITOR SHOWS SINUS RHYTHM AT 98 BPM. RIGHT FOREARM IV ACCESS REMOVED. LEFT UPPER ARM MIDLINE INTACT RUNNING , PATENT AND FLUSHING. PICC LINE PLACED ON BELINDA TPN AND LIPID RUNNING CLEAR YELLOW URINE OUTPUT NOTED. BROWNISH DRAINAGE FROM G-TUBE NOTED. SEROUS AND BROWNISH NOTED IN IRASEMA DRAINS. ALL DUE MEDS GIVEN AND NEEDS ATTENDED. SAFETY MEASURES MAINTAINED. WILL ENDORSE TO AM NURSE FOR KARUNA.
--- NOTE | 2022-08-10 18:46 | NUR ---
ENGINE SERVICE REPAIRER CLOSING NOTES PATIENT AWAKE, ABLE TO VERBALIZE NEEDS. A/O X3, HOB KEPT ELEVATED. SATURATING WELL ON ROOM AIR. 98 % AFEBRILE. TELE MONITOR SHOWS SINUS RHYTHM AT 95 BPM. RIGHT FOREARM IV ACCESS REMOVED. LEFT UPPER ARM MIDLINE INTACT 1/2 NS RUNNING AT 75 ML/HR PICC LINE PLACED ON DENTON TPN AND LIPID RUNNING .CLEAR YELLOW URINE OUTPUT NOTED. BROWNISH DRAINAGE FROM G-TUBE NOTED. SEROUS AND BROWNISH NOTED IN IRASEMA DRAINS. G TUBE CONNECTED TO THE LOW INTERMITTENT SUCTIONING , DARK BROWN DISCHARGE COLLECTED ALL DUE MEDS GIVEN AND NEEDS ATTENDED. SAFETY MEASURES MAINTAINED. WILL ENDORSE TO ROLL CONTOUR GRINDER NURSE FOR KARUNA.
[2022-08-10 20:00] VITALS: BP 142/90
--- NOTE | 2022-08-10 22:01 | NUR ---
RN NOTE SPOKE WITH BRENDA FROM [facility]. GAVE UPDATE ON PATIENT. THEY ONLY RECEIVED FACE SHEET. WOULD LIKE US TO FAX TO [phone] THE H&P, RECENT MD NOTES AND IMAGING.
[2022-08-11] VITALS: BP 141/90
[2022-08-11] MEDS: MORPHINE SULFATE INJ 4 MG/ML DISP.SYRIN IV PRN ×3 (01:38→18:21)
[2022-08-11] MEDS: IV 1/2NS 1000 ML 1,000 ML IV SCH (02:52)
[2022-08-11 04:00] VITALS: BP 145/96
[2022-08-11] MEDS: METOCLOPRAMIDE HCL 10 MG/2 ML VIAL IV SCH ×4 (04:32→21:25)
[2022-08-11] MEDS: METRONIDAZOLE 500MG/ NS 100ML 500 MG in PREMIX 1 EA IV SCH ×3 (04:32→21:24)
[2022-08-11] MEDS: CEFEPIME 2 GM in IV D5W 100 ML IV SCH ×3 (05:25→20:31)
[2022-08-11] MEDS: BLOOD SUGAR DIAGNOSTIC 1 EACH STRIP IN SCH ×3 (05:55→18:07)
[2022-08-11] MEDS: INSULIN REGULAR, HUMAN 100 UNIT/ML 3 ML VIAL SQ PRN ×4 (05:56→18:21)
[2022-08-11 06:26] LABS: BASOPHILS # (AUTO) 0.1 K/uL (0.0-0.2); BASOPHILS % (AUTO) 0.4 % (0.0-2.0); EOSINOPHILS % (AUTO) 0.3 % (0.0-6.0); HEMATOCRIT 29 % (33-45); HEMOGLOBIN 9.1 g/dL (11.5-14.8); LYMPHOCYTES # (AUTO) 0.5 K/uL (0.8-4.8); MEAN CORPUSCULAR HGB CONC 32 g/dl (31.0-36.0); MEAN CORPUSCULAR VOLUME 83 fL (82-100); MONOCYTES # (AUTO) 0.9 K/uL (0.1-1.30); MONOCYTES % (AUTO) 5.1 % (2.0-12.0); NEUTROPHILS # (AUTO) 15.9 K/uL (1.8-8.9); NEUTROPHILS % (AUTO) 91.2 % (43.0-81.0); PLATELET COUNT (AUTO) 370 K/uL (150-450); RED BLOOD CELL COUNT(AUTO) 3.46 MIL/uL (4.0-5.2); WHITE BLOOD COUNT (AUTO) 17.4 K/uL (4.3-11.0)
--- NOTE | 2022-08-11 06:28 | NUR ---
RN CLOSING NOTE A/OX3. ROOM AIR. SINUS RHYTHM/ TACHYCARDIA HR HIGH 120. HEMPHILL CATHETER MAINTAINED. GTUBE TO LIS. NO OUTPUT. IRASEMA DRAIN ON LEFT 1125ML BLACK. IRASEMA DRAIN ON RIGHT 190ML SEROUS. NO BM. TPN RUNNING. IV RUNNING. IV ABX GIVEN ORDERED. PRN MORPHINE GIVEN FOR PAIN. FAXED INFORMATION TO [facility]. PLAN TO TRANSFER TO [facility].
[2022-08-11 06:33] LABS: CALCIUM, SERUM 7.5 mg/dL (8.5-10.1); CREATININE 0.6 mg/dL (0.6-1.3); MAGNESIUM 1.5 mg/dL (1.8-2.4); PHOSPHORUS 2.2 mg/dL (2.5-4.9); POTASSIUM 3.4 mmol/L (3.5-5.1)
[2022-08-11 06:44] LABS: CHOLESTEROL 72 mg/dL (<200); HDL CHOLESTEROL 22 mg/dL (40-60); LDL 53 mg/dL (0-99); TRIGLYCERIDES 122 mg/dL (30-150)
[2022-08-11 08:00] VITALS: BP 155/92
[2022-08-11] MEDS: Magnesium 1GM/D5W 100ML PREMIX 100 ML IV SCH ×2 (08:30→10:09)
[2022-08-11] MEDS: PANTOPRAZOLE 40 MG VIAL IV SCH (08:31)
[2022-08-11] MEDS: POTASSIUM PHOSPHATE MM 7.5 MMOL in IV NS 0.9% 100 ML IV SCH ×2 (08:57→12:20)
--- NOTE | 2022-08-11 09:00 | NUR ---
RN NOTE PATIENT IS WALKING WITH PHYSICAL THERAPY AT THIS TIME WITH TPN RUNNING AND LIPIDS.
[2022-08-11] MEDS: VANCOMYCIN 500 MG in IV D5W 100ml IV SCH ×2 (10:16→22:04)
[2022-08-11] MEDS: Potassium Chloride 20 MEQ in IV NS 0.9% 1,000 ML IV SCH ×2 (10:16→22:06)
[2022-08-11 12:00] VITALS: BP 121/86
[2022-08-11] MEDS ORDERED: TPN BAG #2 IV SCH ×6 (14:00)
[2022-08-11] MEDS: MICAFUNGIN SODIUM 100 MG in IV NS 0.9% 100 ML IV SCH (15:41)
[2022-08-11 16:00] VITALS: BP 125/84
--- NOTE | 2022-08-11 18:04 | NUR ---
RN NOTE NOTED BLOODY DISCHARGE ON DIAPER. PATIENT STATED SHE BEGAN HER MENSTRUAL CYCLE TODAY.
[2022-08-11 18:10] LABS: HEMOGLOBIN 9.5 g/dL (11.5-14.8)
--- NOTE | 2022-08-11 18:58 | NUR ---
RN CLOSING NOTE A/OX3, GREENLANDIC SPEAKING, BREATHING ON ROOM AIR. SINUS RHYTHM/ TACHYCARDIA HR OF 107BPM. HEMPHILL CATHETER DRAINING CLEAR AND YELLOW URINE. G TUBE ON LIS. NO BM. IRASEMA DRAIN ON LEFT 240 ML; IRASEMA DRAIN ON RIGHT 75ML SEROUS. NO BM, FIRST DAY OF MENSTRUATION. TPN RUNNING AT 40MLS/HR ON R UPPER ARM PICC IV ACCESS AND POTASSIUM CHLORIDE RUNNING AT 75MLS/HR ON DENTON MIDLINE IV. ABX GIVEN ORDERED. PRN MORPHINE GIVEN FOR PAIN. ALL SAFETY MEASURES IN PLACE, BED LOCKED IN LOWEST POSITION, WILL ENDORSE CONTINUITY OF CARE TO CANDY BUTCHER NURSE
--- NOTE | 2022-08-11 19:30 | NUR ---
SALES STORE CHECKER OPENING NOTE RECEIVED PATIENT IN BED, ASLEEP. CURRENTLY ON RA, TOLERATING WELL. NO S/SX OF ACUTE RESPIRATORY DISTRESS NOTED AT THIS TIME. NO SOB. BREATHING IS EVEN AND UNLABORED. IV ACCESS ON BELINDA PICC LINE INFUSING TPN @ 40 CC/HR AND DENTON ML INFUSING KCL 20 MEQ @ 75 CC/HR. BOTH PATENT AND INTACT. G-TUBE NOTED AND CONNECTED TO LOW INTERMITTENT SUCTIONING. LEFT AND RIGHT IRASEMA DRAIN ALSO NOTED WITH RIGHT SITE SHOWING YELLOW CLEAR FLUID NAD LEFT SIDE WITH MINIMAL DARK BROWN OUTPUT. F/C IN PLACE, PATENT AND INTACT, DRAINING YELLOW COLORED URINE BY GRAVITY. ALL SAFETY MEASURES IN PLACE: BED LOCKED IN LOWEST POSITION, BED ALARM ON. SR UP X 3. CALL LIGHT AND TABLE WITHIN REACH. WILL CONTINUE TO MONITOR.
[2022-08-11 20:00] VITALS: BP 150/99
[2022-08-11] MEDS ORDERED: POTASSIUM CL. PREMIX PERIPHER. 50 ML IV SCH (20:00)
[2022-08-11] MEDS ORDERED: Magnesium 1GM/D5W 100ML PREMIX 100 ML IV SCH (21:00)
[2022-08-11] MEDS: LORAZEPAM INJ 2 MG/ML VIAL IV PRN (21:54)
[2022-08-12] VITALS: BP 154/98
[2022-08-12] MEDS: BLOOD SUGAR DIAGNOSTIC 1 EACH STRIP IN SCH ×4 (00:30→17:47)
[2022-08-12] MEDS: INSULIN REGULAR, HUMAN 100 UNIT/ML 3 ML VIAL SQ PRN ×4 (00:31→23:58)
[2022-08-12] MEDS: METOCLOPRAMIDE HCL 10 MG/2 ML VIAL IV SCH ×4 (03:33→21:23)
[2022-08-12] MEDS: MORPHINE SULFATE INJ 4 MG/ML DISP.SYRIN IV PRN ×3 (03:39→20:35)
[2022-08-12 04:00] VITALS: BP 159/99
[2022-08-12] MEDS: CEFEPIME 2 GM in IV D5W 100 ML IV SCH ×3 (04:23→21:39)
[2022-08-12] MEDS: METRONIDAZOLE 500MG/ NS 100ML 500 MG in PREMIX 1 EA IV SCH ×3 (04:42→20:37)
[2022-08-12 05:46] LABS: BASOPHILS % (AUTO) 0.2 % (0.0-2.0); EOSINOPHILS % (AUTO) 0.5 % (0.0-6.0); HEMATOCRIT 24 % (33-45); HEMOGLOBIN 7.8 g/dL (11.5-14.8); LYMPHOCYTES # (AUTO) 0.4 K/uL (0.8-4.8); LYMPHOCYTES % (AUTO) 3.9 % (20.0-44.0); MEAN CORPUSCULAR HGB CONC 33 g/dl (31.0-36.0); MEAN CORPUSCULAR VOLUME 83 fL (82-100); MONOCYTES # (AUTO) 0.7 K/uL (0.1-1.30); MONOCYTES % (AUTO) 6.7 % (2.0-12.0); NEUTROPHILS # (AUTO) 9.6 K/uL (1.8-8.9); NEUTROPHILS % (AUTO) 88.7 % (43.0-81.0); PLATELET COUNT (AUTO) 267 K/uL (150-450); RED BLOOD CELL COUNT(AUTO) 2.88 MIL/uL (4.0-5.2); WHITE BLOOD COUNT (AUTO) 10.8 K/uL (4.3-11.0)
[2022-08-12 06:04] LABS: CALCIUM, SERUM 7.2 mg/dL (8.5-10.1); CREATININE 0.6 mg/dL (0.6-1.3); MAGNESIUM 1.5 mg/dL (1.8-2.4); PHOSPHORUS 2.3 mg/dL (2.5-4.9); POTASSIUM 3.4 mmol/L (3.5-5.1)
--- NOTE | 2022-08-12 06:25 | NUR ---
DESIGN MAINTENANCE ENGINEER CLOSING NOTE NO SIGNIFICANT CHANGE T/O THE NIGHT. PT IS ST ON MARKETING COMMUNICATIONS SPECIALIST, HR ON 100s. NO S/SX OF ACUTE RESPI DISTRESS NOTED. PT COMPLAINED OF PAIN 2X, PRN MEDS GIVEN ORDERED. ALL DUE MEDS GIVEN. PM CARE DONE. KEPT PT CLEAN AND DRY. TURNED AND REPOSITIONED. WILL ENDORSE TO AM SHIFT NURSE FOR KARUNA.
[2022-08-12 08:00] VITALS: BP 163/94
[2022-08-12] MEDS: PANTOPRAZOLE 40 MG VIAL IV SCH (08:46)
[2022-08-12] MEDS: Magnesium 1GM/D5W 100ML PREMIX 100 ML IV SCH ×2 (08:59→10:09)
[2022-08-12] MEDS: POTASSIUM PHOSPHATE MM 7.5 MMOL in IV NS 0.9% 100 ML IV SCH ×2 (09:58→12:36)
[2022-08-12] MEDS: VANCOMYCIN 500 MG in IV D5W 100ml IV SCH ×2 (10:51→22:42)
[2022-08-12] MEDS: HYDROMORPHONE 1 MG/1 ML DISP.SYRIN IV PRN (11:44)
[2022-08-12 12:00] VITALS: BP 152/100
[2022-08-12] MEDS: Potassium Chloride 20 MEQ in IV NS 0.9% 1,000 ML IV SCH (12:38)
[2022-08-12] MEDS: MICAFUNGIN SODIUM 100 MG in IV NS 0.9% 100 ML IV SCH (13:42)
[2022-08-12] MEDS ORDERED: TPN BAG #3 IV SCH ×4 (14:00)
[2022-08-12] MEDS: FAT EMULSION 20% 500 ML in PREMIX 1 EA IV SCH (14:47)
[2022-08-12] MEDS ORDERED: IV NS 0.9% 500 ML IV ONE (15:00)
[2022-08-12 16:00] VITALS: BP 119/95
[2022-08-12 16:33] LABS: HEMOGLOBIN 8.1 g/dL (11.5-14.8)
[2022-08-12] MEDS ORDERED: Sodium Phosphate 30 MMOL in IV NS 0.9% 250 ML IV SCH (18:30)
--- NOTE | 2022-08-12 19:00 | NUR ---
RN NOTE Received pt in bed, alert, awake, verbally responsive. No c/o pain or discomfort at this time. Pt on room air, well darryl, no SOB, no acute resp. distress. Afebrile. Currently infusing TPN at 40ml/hr, Lipids at 20ml/hr on BELINDA PICC line, well darryl. NS w/ K 20meq infusing on DENTON ML, well tolerated. PEG tube attached to intermittent low suction, dark green output noted. Fuller in placed, patent, secured and draining clear yellow urine by gravity. Left and right IRASEMA in placed, patent, R IRASEMA draining clear yellow output, L IRASEMA draining dark brown IRASEMA. HOB elevated for comfort. Safety precaution implemented. Will continue plan of care.
[2022-08-12 20:00] VITALS: BP 148/98
[2022-08-12] MEDS ORDERED: POTASSIUM PHOSPHATE MM 7.5 MMOL in IV NS 0.9% 100 ML IV SCH (20:00)
[2022-08-12] MEDS ORDERED: Magnesium 1GM/D5W 100ML PREMIX 100 ML IV SCH (21:00)
[2022-08-12] MEDS ORDERED: POTASSIUM CL. PREMIX PERIPHER. 50 ML IV SCH (22:00)
[2022-08-13] VITALS: BP 150/88
[2022-08-13] MEDS: MORPHINE SULFATE INJ 4 MG/ML DISP.SYRIN IV PRN ×2 (01:20→06:22)
[2022-08-13] MEDS: Potassium Chloride 20 MEQ in IV NS 0.9% 1,000 ML IV SCH ×2 (01:59→16:00)
[2022-08-13 04:00] VITALS: BP 148/96
[2022-08-13] MEDS: CEFEPIME 2 GM in IV D5W 100 ML IV SCH ×4 (04:12→21:34)
[2022-08-13] MEDS: METOCLOPRAMIDE HCL 10 MG/2 ML VIAL IV SCH ×4 (04:13→21:31)
[2022-08-13] MEDS: METRONIDAZOLE 500MG/ NS 100ML 500 MG in PREMIX 1 EA IV SCH ×3 (04:43→20:24)
[2022-08-13 06:23] LABS: BASOPHILS % (AUTO) 0.4 % (0.0-2.0); EOSINOPHILS % (AUTO) 0.6 % (0.0-6.0); HEMATOCRIT 25 % (33-45); HEMOGLOBIN 8.1 g/dL (11.5-14.8); LYMPHOCYTES # (AUTO) 0.5 K/uL (0.8-4.8); LYMPHOCYTES % (AUTO) 4.9 % (20.0-44.0); MEAN CORPUSCULAR HGB CONC 32 g/dl (31.0-36.0); MEAN CORPUSCULAR VOLUME 84 fL (82-100); MONOCYTES # (AUTO) 0.7 K/uL (0.1-1.30); MONOCYTES % (AUTO) 7.3 % (2.0-12.0); NEUTROPHILS # (AUTO) 8.4 K/uL (1.8-8.9); NEUTROPHILS % (AUTO) 86.8 % (43.0-81.0); PLATELET COUNT (AUTO) 288 K/uL (150-450); WHITE BLOOD COUNT (AUTO) 9.6 K/uL (4.3-11.0)
[2022-08-13 06:36] LABS: CALCIUM, SERUM 7.3 mg/dL (8.5-10.1); CREATININE 0.6 mg/dL (0.6-1.3); MAGNESIUM 1.9 mg/dL (1.8-2.4); PHOSPHORUS 2.5 mg/dL (2.5-4.9)
[2022-08-13] MEDS: BLOOD SUGAR DIAGNOSTIC 1 EACH STRIP IN SCH ×4 (07:00→17:50)
[2022-08-13] MEDS: INSULIN REGULAR, HUMAN 100 UNIT/ML 3 ML VIAL SQ PRN ×3 (07:02→17:53)
--- NOTE | 2022-08-13 07:10 | NUR ---
RN NOTE RECEIVED PATIENT IN BED RESTING ALERT ORIENTEDX4 VERBALLY RESPONSIVE ON ROOM AIR,IV ACCESS ON LEFT UPPER ARM MIDLINE AND RIGHT UPPER ARM PICC LINE ON TPN RUNNING 40CC/HR,LEFT AND RIGHT IRASEMA DRAINAGE, G-TUBE ATTACHED TO INTERMITTED LOW SUCTIONING,HEMPHILL CATH IN PLACE URINE DRAINING BY GRAVITY,SAFETY MEASURE IMPLEMENT BED IN LOW POSITION AND LOCKED,CALL LIGHT WITHIN REACH,CONTINUE TO MONITOR.
[2022-08-13] MEDS: POTASSIUM CL. PREMIX PERIPHER. 50 ML IV SCH ×4 (07:51→11:06)
[2022-08-13 08:00] VITALS: BP 156/100
[2022-08-13] MEDS: PANTOPRAZOLE 40 MG VIAL IV SCH (08:02)
[2022-08-13] MEDS: HYDROMORPHONE 1 MG/1 ML DISP.SYRIN IV PRN ×3 (08:56→20:07)
[2022-08-13] MEDS: VANCOMYCIN 500 MG in IV D5W 100ml IV SCH ×2 (09:52→22:07)
[2022-08-13] MEDS ORDERED: [UNRECOGNIZED DRUG - OTHER] IV SCH (10:00)
[2022-08-13] MEDS ORDERED: TRACE ELEMENTS IV SCH (10:00)
[2022-08-13] MEDS ORDERED: MVI ADULT IV SCH (10:00)
[2022-08-13] MEDS ORDERED: TPN ADDITIVES IV SCH (10:00)
[2022-08-13] MEDS ORDERED: DEXTROSE 50%-WATER 50 ML DISP.SYRIN IV PRN (10:30)
[2022-08-13 12:00] VITALS: BP 140/96
[2022-08-13] MEDS ORDERED: TPN BAG #4 IV SCH ×6 (12:00→14:00)
[2022-08-13] MEDS: MICAFUNGIN SODIUM 100 MG in IV NS 0.9% 100 ML IV SCH (14:09)
[2022-08-13] MEDS: ONDANSETRON HCL/PF 4 MG/2 ML VIAL IVP PRN (14:29)
[2022-08-13 16:00] VITALS: BP 129/89
--- NOTE | 2022-08-13 18:40 | NUR ---
RN NOTE PATIENT REMAINS ALERT ORIENTED X4 VERBALLY RESPONSIVE NPO ON TPN ALL DUE MEDS GIVEN MD ORDERED,NO SOB NOT ACUTE DISTRESS NOTED,KEPT CALL LIGHT WITHIN REACH,DILAUDID PRN GIVEN FOR PAIN MANAGEMENT WILL ENDORSE NEXT COMING SHIFT FOR CONTINUATION OF CARE
--- NOTE | 2022-08-13 19:50 | NUR ---
CONTINUITY OF CARE Patient in bed, Alert Oriented x3. Oxygen sat high 90's in RA. Abdomen tender, patient c/o severe pain. IRASEMA x2 to bulb suction. Abd gastric tube to LIS. Fuller cath intact, draining cloudy yellow urine. Patient has BEILNDA PICC line and DENTON Midline cath, both intact and functioning well. On TPN at 50ml/hr (bag #4). IVF continuous, NPO. Fall precaution maintained. Will cont to monitor.
[2022-08-13 20:00] VITALS: BP 150/95
[2022-08-13] MEDS ORDERED: POTASSIUM PHOSPHATE MM 7.5 MMOL in IV NS 0.9% 100 ML IV SCH (20:00)
--- NOTE | 2022-08-13 20:07 | NUR ---
ABD PAIN Patient c/o abd pain 11/22. Denies N/V, on IV Reglan q6 scheduled. Given IV Dilaudid, will reassess pain level. Fall precaution maintained.
[2022-08-13] MEDS ORDERED: Magnesium 1GM/D5W 100ML PREMIX 100 ML IV SCH (21:00)
--- NOTE | 2022-08-13 23:00 | NUR ---
IRASEMA DRAIN IRASEMA x2 to bulb suction, output 125ml. ( Right side abd 50ml cloudy yellow; left side abd 75ml dark bartholomew).
--- NOTE | 2022-08-13 23:09 | NUR ---
TRANSFER OF PRIMARY RN Care endorsed to RN Lowell. Patient in bed, sleeping arouses easily. In no acute respiratory distress. Call light within reach. Fall precaution maintained.
--- NOTE | 2022-08-13 23:10 | NUR ---
RN NOTE Received pt in bed, alert, awake, verbally responsive. No c/o pain or discomfort at this time. Pt on room air, well darryl, no SOB, no acute resp. distress. Afebrile. Currently infusing TPN at 50ml/hr, on BELINDA PICC line, well darryl. NS w/ K 20meq infusing on DENTON ML, well tolerated. PEG tube attached to intermittent low suction, dark green output noted. Fuller in placed, patent, secured and draining clear yellow urine by gravity. Left and right IRASEMA in placed, patent, R IRASEMA draining clear yellow output, L IRASEMA draining dark brown IRASEMA. HOB elevated for comfort. Safety precaution implemented. Will continue plan of care.
[2022-08-14] VITALS: BP 149/96
[2022-08-14] MEDS: BLOOD SUGAR DIAGNOSTIC 1 EACH STRIP IN SCH ×5 (00:20→23:33)
[2022-08-14] MEDS: HYDROMORPHONE 1 MG/1 ML DISP.SYRIN IV PRN ×4 (00:20→23:39)
[2022-08-14] MEDS: INSULIN REGULAR, HUMAN 100 UNIT/ML 3 ML VIAL SQ PRN ×5 (00:24→23:35)
[2022-08-14] MEDS: METOCLOPRAMIDE HCL 10 MG/2 ML VIAL IV SCH ×4 (03:10→21:57)
[2022-08-14 04:00] VITALS: BP 151/97
[2022-08-14] MEDS: CEFEPIME 2 GM in IV D5W 100 ML IV SCH ×3 (04:22→20:12)
[2022-08-14] MEDS: METRONIDAZOLE 500MG/ NS 100ML 500 MG in PREMIX 1 EA IV SCH ×3 (04:33→21:22)
[2022-08-14] MEDS: Potassium Chloride 20 MEQ in IV NS 0.9% 1,000 ML IV SCH ×2 (04:33→19:12)
[2022-08-14 06:58] LABS: BASOPHILS % (AUTO) 0.5 % (0.0-2.0); EOSINOPHILS % (AUTO) 0.5 % (0.0-6.0); HEMATOCRIT 22 % (33-45); HEMOGLOBIN 7.2 g/dL (11.5-14.8); LYMPHOCYTES # (AUTO) 0.4 K/uL (0.8-4.8); LYMPHOCYTES % (AUTO) 4.5 % (20.0-44.0); MEAN CORPUSCULAR HGB CONC 32 g/dl (31.0-36.0); MEAN CORPUSCULAR VOLUME 83 fL (82-100); MONOCYTES # (AUTO) 0.9 K/uL (0.1-1.30); MONOCYTES % (AUTO) 10.3 % (2.0-12.0); NEUTROPHILS # (AUTO) 7.6 K/uL (1.8-8.9); NEUTROPHILS % (AUTO) 84.2 % (43.0-81.0); PLATELET COUNT (AUTO) 217 K/uL (150-450); WHITE BLOOD COUNT (AUTO) 9.1 K/uL (4.3-11.0)
--- NOTE | 2022-08-14 07:20 | NUR ---
RN NOTE Hand off report given to am shift nurse for favian
[2022-08-14 07:23] LABS: CALCIUM, SERUM 7.5 mg/dL (8.5-10.1); CREATININE 0.6 mg/dL (0.6-1.3); MAGNESIUM 1.7 mg/dL (1.8-2.4); PHOSPHORUS 2.3 mg/dL (2.5-4.9); POTASSIUM 3.4 mmol/L (3.5-5.1)
[2022-08-14 08:00] VITALS: BP 148/92
[2022-08-14] MEDS: PANTOPRAZOLE 40 MG VIAL IV SCH (08:05)
[2022-08-14] MEDS ORDERED: TPN BAG #5 IV SCH ×4 (09:00)
[2022-08-14 12:00] VITALS: BP 147/99
[2022-08-14] MEDS: Magnesium 1GM/D5W 100ML PREMIX 100 ML IV SCH ×2 (12:17→18:23)
[2022-08-14] MEDS: VANCOMYCIN 500 MG in IV D5W 100ml IV SCH ×2 (12:17→22:32)
[2022-08-14] MEDS: MORPHINE SULFATE INJ 4 MG/ML DISP.SYRIN IV PRN ×3 (12:44→20:31)
[2022-08-14] MEDS: FAT EMULSION 20% 500 ML in PREMIX 1 EA IV SCH (14:25)
[2022-08-14] MEDS: POTASSIUM PHOSPHATE MM 7.5 MMOL in IV NS 0.9% 100 ML IV SCH ×2 (15:42→19:11)
[2022-08-14 16:00] VITALS: BP 147/95
[2022-08-14] MEDS: MICAFUNGIN SODIUM 100 MG in IV NS 0.9% 100 ML IV SCH (17:05)
--- NOTE | 2022-08-14 19:30 | NUR ---
FOREST AIDE OPENING NOTE RECEIVED PATIENT IN BED, AWAKE, A/0 X 3-4, BELGIAN SPEAKING ONLY. CURRENTLY ON RA, TOLERATING WELL, SATING @ >95%. NO S/SX OF ACUTE RESPIRATORY DISTRESS NOTED AT THIS TIME. NO SOB. BREATHING IS EVEN AND UNLABORED. CUTTER APPRENTICE HAND READS ST WITH HR IN 100s. IV ACCESS ON BELINDA PICC LINE INFUSING TPN @ 60 CC/HR AND IV LIPIDS @ 20.83 CC/HR AND DENTON ML INFUSING KCL 20 MEQ @ 75 CC/HR. BOTH LINES ARE PATENT AND INTACT. G-TUBE NOTED AND CONNECTED TO LOW INTERMITTENT SUCTIONING. LEFT AND RIGHT IRASEMA DRAIN ALSO NOTED. F/C IN PLACE, PATENT AND INTACT, DRAINING YELLOW COLORED URINE BY GRAVITY. ALL SAFETY MEASURES IN PLACE: BED LOCKED IN LOWEST POSITION, BED ALARM ON. SR UP X 3. CALL LIGHT AND TABLE WITHIN REACH. WILL CONTINUE TO MONITOR.
[2022-08-14 20:00] VITALS: BP 159/99
[2022-08-14] MEDS ORDERED: POTASSIUM PHOSPHATE MM 7.5 MMOL in IV NS 0.9% 100 ML IV SCH (20:00)
--- NOTE | 2022-08-14 20:24 | NUR ---
RN NOTE Pt in bed, alert, awake, verbally responsive. polish speaking No c/o pain or discomfort at this time. Pt on room air, well darryl, no SOB, no acute resp. distress. Afebrile. Currently infusing TPN at 60ml/hr, on BELINDA PICC line, well darryl. NS w/ K 20meq infusing on DENTON ML, well tolerated. PEG tube attached to intermittent low suction, dark green output noted. Fuller in placed, patent, secured and draining clear yellow urine by gravity. Left and right IRASEMA in placed, patent, R IRASEMA draining clear yellow output, L IRASEMA draining dark brown IRASEMA. HOB elevated for comfort. Safety precautions implemented. Will endorse continuity of care to slot shift manager.
[2022-08-14] MEDS ORDERED: Magnesium 1GM/D5W 100ML PREMIX 100 ML IV SCH (21:00)
[2022-08-15] VITALS: BP 109/56
[2022-08-15] MEDS: MORPHINE SULFATE INJ 4 MG/ML DISP.SYRIN IV PRN ×3 (01:24→20:57)
[2022-08-15] MEDS ORDERED: TPN BAG #6 IV SCH ×3 (01:51)
[2022-08-15] MEDS: METOCLOPRAMIDE HCL 10 MG/2 ML VIAL IV SCH ×4 (03:12→21:41)
[2022-08-15] MEDS: HYDROMORPHONE 1 MG/1 ML DISP.SYRIN IV PRN ×4 (03:46→23:03)
[2022-08-15 04:00] VITALS: BP 134/95
[2022-08-15] MEDS: CEFEPIME 2 GM in IV D5W 100 ML IV SCH ×3 (04:06→22:20)
[2022-08-15] MEDS: METRONIDAZOLE 500MG/ NS 100ML 500 MG in PREMIX 1 EA IV SCH ×3 (04:40→20:43)
[2022-08-15] MEDS: BLOOD SUGAR DIAGNOSTIC 1 EACH STRIP IN SCH ×4 (05:35→23:40)
[2022-08-15] MEDS: INSULIN REGULAR, HUMAN 100 UNIT/ML 3 ML VIAL SQ PRN ×2 (05:59→23:50)
--- NOTE | 2022-08-15 06:52 | NUR ---
ADULT NEUROLOGIST CLOSING NOTE NO SIGNIFICANT CHANGE T/O THE NIGHT. PT COMPLAINS OF PAIN AND REQUESTS FOR PAIN MEDS ALL THE TIME. MORPHINE AND DILAUDID GIVEN ALTERNATELY PER FREQUENCY. ALL DUE MEDS GIVEN. NEEDS MET. PM CARE DONE. TURNED AND REPOSITIONED. WILL ENDORSE TO AM SHIFT NURSE FOR KARUNA.
[2022-08-15 07:12] LABS: BASOPHILS # (AUTO) 0.1 K/uL (0.0-0.2); EOSINOPHILS % (AUTO) 0.6 % (0.0-6.0); HEMATOCRIT 22 % (33-45); HEMOGLOBIN 7.8 g/dL (11.5-14.8); LYMPHOCYTES # (AUTO) 0.4 K/uL (0.8-4.8); LYMPHOCYTES % (AUTO) 3.4 % (20.0-44.0); MEAN CORPUSCULAR HGB CONC 36 g/dl (31.0-36.0); MEAN CORPUSCULAR VOLUME 85 fL (82-100); MONOCYTES # (AUTO) 0.9 K/uL (0.1-1.30); MONOCYTES % (AUTO) 8.1 % (2.0-12.0); NEUTROPHILS # (AUTO) 9.5 K/uL (1.8-8.9); NEUTROPHILS % (AUTO) 86.9 % (43.0-81.0); PLATELET COUNT (AUTO) 212 K/uL (150-450); RED BLOOD CELL COUNT(AUTO) 2.55 MIL/uL (4.0-5.2)
[2022-08-15 07:25] LABS: CREATININE 0.5 mg/dL (0.6-1.3); MAGNESIUM 1.7 mg/dL (1.8-2.4); POTASSIUM 3.1 mmol/L (3.5-5.1)
[2022-08-15] MEDS: Potassium Chloride 20 MEQ in IV NS 0.9% 1,000 ML IV SCH ×2 (07:43→21:20)
[2022-08-15 08:00] VITALS: BP 146/74
[2022-08-15] MEDS: PANTOPRAZOLE 40 MG VIAL IV SCH (09:17)
[2022-08-15 09:49] LABS: BAND % (MANUAL) 3 % (0.0-5.0); LYMPHOCYTES % (MANUAL) 3 % (16-48); MONOCYTES % (MANUAL) 6 % (0-11.0); NEUTROPHILS % (MANUAL) 88 (42-76)
[2022-08-15] MEDS: VANCOMYCIN 500 MG in IV D5W 100ml IV SCH (10:50)
[2022-08-15 12:00] VITALS: BP 161/101
[2022-08-15] MEDS: Magnesium 1GM/D5W 100ML PREMIX 100 ML IV SCH ×2 (12:39→13:56)
[2022-08-15] MEDS: LORAZEPAM INJ 2 MG/ML VIAL IV PRN (12:39)
[2022-08-15] MEDS ORDERED: POTASSIUM PHOSPHATE MM 7.5 MMOL in IV NS 0.9% 100 ML IV SCH (13:00)
[2022-08-15] MEDS: MICAFUNGIN SODIUM 100 MG in IV NS 0.9% 100 ML IV SCH (15:39)
[2022-08-15 16:00] VITALS: BP 145/87
[2022-08-15] MEDS ORDERED: TPN BAG #7 IV SCH ×4 (18:51)
[2022-08-15] MEDS ORDERED: TPN BAG # 7 IV SCH ×3 (18:51)
--- NOTE | 2022-08-15 19:37 | NUR ---
LAB TECH CLOSING NOTE NO SIGNIFICANT CHANGES. ADMINISTERED PAIN MEDS ORDERED. TPN RUNNING AT 60MLS/HR ON L PICC. BELINDA MIDLINE RUNNING 75MLS POTASSIUM CHLORIDE. ALL DUE MEDS GIVEN. NEEDS MET. AM CARE DONE. REMOVED 575MLS FROM LEFT IRASEMA 325MLS FROM RIGHT. HEMPHILL CATHETER IN PLACE, DRAINING YELLOW URINE. TURNED AND REPOSITIONED. WILL ENDORSE TO PM SHIFT NURSE FOR KARUNA.
--- NOTE | 2022-08-15 19:45 | NUR ---
TELE1 RN NOTES RECEIVED ON BED A/O X2-3,SPEAK INDONESIAN,BREATHING REGULAR,NOT IN ANY FORM OF DISTRESS.S/P EX-LAP ON 07/29,ABDOMINAL DRESSSING INTACT AND PATENT.WITH RIGHT AND LEFT HALEY GONZALEZ,EMPTIED LEFT SIDE WITH 100ML BLACK LIQUID OUTPUT.RIGHT SIDE HAS SCANTY OUTPUT.WITH HEMPHILL CATH IN PLACE DRAINS YELLOWISH OUTPUT.ON TPN#7 INFUSING WELL AT RIGHT UPPER ARM PICC LINE AT 60ML/HR RATE.IVF WITH KCL INFUSING ON LEFT UPPER ARM PICC LINE AT 75,SITE PATENT.FAMILY MEMBERS AT BEDSIDE.WILL CONTINUE TO MONITOR STATUS.CALL LIGHT IN REACH,NEEDS ANTICIPATED.
[2022-08-15 20:00] VITALS: BP 158/108
--- NOTE | 2022-08-15 20:00 | NUR ---
BOOKKEEPING CLERK NOTES BP-158/108,PATIENT IN PAIN 8/10 ON PAIN SCALE.
--- NOTE | 2022-08-15 20:57 | NUR ---
WIND TURBINE MECHANICAL ENGINEER NOTES PAIN MANAGEMENT MEDICATED WITH MORPHINE 4MG IV ORDERED AND PER PATIENT REQUEST.
--- NOTE | 2022-08-15 22:00 | NUR ---
WEB UI DESIGNER NOTES NOTED GT CONNECTED TO LIS WALL SUCTION DRAINS BLACK SMALL AMOUNT LIQUID.WILL CONTINUE TO MONITOR.
--- NOTE | 2022-08-15 22:10 | NUR ---
JEWEL HOLE FINISH OPENER NOTES BLOOD PRESSURE RECHECK AND IT WAS 150/84,PULSE-108.ASLEEP THIS TIME.
--- NOTE | 2022-08-15 23:03 | NUR ---
CHIEF SUBSTATION OPERATOR NOTES PAIN MANAGEMENT AWAKE HAVING ABDOMINAL PAIN 10/10 ON PAIN SCALE.DILAUDID 1MG IV GIVEN ORDERED FOR SEVERE PAIN.
[2022-08-16] VITALS (10 sets, daily range): BP systolic 110–163; BP diastolic 68–109
--- NOTE | 2022-08-16 | NUR ---
MANAGER DATABASE NOTES ACCU-CHECK BLOOD SUGAR CHECK 193MG/DL,COVERED WITH HUMULIN R 4UNITS PER SLIDING SCALE.TPN IN PROGRESS.
--- NOTE | 2022-08-16 02:30 | NUR ---
VISION MIXER NOTES HAD MODERATE YELLOWISH BOWEL MOVEMENT.CLEANED AND KEPT DRY.
[2022-08-16] MEDS: MORPHINE SULFATE INJ 4 MG/ML DISP.SYRIN IV PRN ×5 (02:50→20:43)
--- NOTE | 2022-08-16 02:50 | NUR ---
CONTACT PERSON NOTES PAIN MANAGEMENT C/P ABDOMINAL PAIN 8/10 ON PAIN SCALE,MORPHINE 4MG IV GIVEN PER PATIENT REQUEST.VITAL SIGNS STABLE.
[2022-08-16] MEDS: METOCLOPRAMIDE HCL 10 MG/2 ML VIAL IV SCH ×4 (04:00→21:22)
[2022-08-16] MEDS: METRONIDAZOLE 500MG/ NS 100ML 500 MG in PREMIX 1 EA IV SCH ×3 (04:34→20:48)
[2022-08-16] MEDS: CEFEPIME 2 GM in IV D5W 100 ML IV SCH ×3 (05:24→20:06)
[2022-08-16] MEDS: BLOOD SUGAR DIAGNOSTIC 1 EACH STRIP IN SCH ×4 (05:50→23:44)
[2022-08-16] MEDS: INSULIN REGULAR, HUMAN 100 UNIT/ML 3 ML VIAL SQ PRN ×4 (05:55→23:43)
--- NOTE | 2022-08-16 06:39 | NUR ---
ROCK BREAKER NOTES ON BED, SLEPT WITH INTERVALS,PAIN MANAGEMENT EFFECTIVE,TPN IN PROGRESS ON RIGHT UPPER ARM PICC LINE,LEFT UPPER ARM MIDLINE INTACT AND PATENT.PEG TO LIS WALL SUCTION,WITH SMALL AMOUNT OF GASTRIC OUTPUT.ALL DUE MEDS ADMINISTERED.CALL LIGHT IN REACH,NEEDS ATTENDED.
[2022-08-16 07:06] LABS: BASOPHILS % (AUTO) 0.3 % (0.0-2.0); EOSINOPHILS % (AUTO) 0.4 % (0.0-6.0); HEMATOCRIT 22 % (33-45); LYMPHOCYTES # (AUTO) 0.4 K/uL (0.8-4.8); LYMPHOCYTES % (AUTO) 4.5 % (20.0-44.0); MEAN CORPUSCULAR HGB CONC 32 g/dl (31.0-36.0); MEAN CORPUSCULAR VOLUME 84 fL (82-100); MONOCYTES # (AUTO) 0.9 K/uL (0.1-1.30); MONOCYTES % (AUTO) 11.7 % (2.0-12.0); NEUTROPHILS # (AUTO) 6.7 K/uL (1.8-8.9); NEUTROPHILS % (AUTO) 83.1 % (43.0-81.0); PLATELET COUNT (AUTO) 213 K/uL (150-450); RED BLOOD CELL COUNT(AUTO) 2.58 MIL/uL (4.0-5.2)
--- NOTE | 2022-08-16 07:28 | NUR ---
TOOLING SPECIALIST OPENING NOTE PATIENT RECEIVED IN BED AWAKE. ON ROOM AIR WITH NO S/S OF SOB OR RESPIRATORY DISTRESS. BREATHING EVEN AND UNLABORED. ON TELE MONITOR. IV ACCESS AT DENTON ML RUNNING NS 20 MEQ KCL @ 75 ML/HR. BELINDA PICC LINE RUNNING TPN @ 60 ML/HR. IRASEMA DRAIN INTACT AND DRAINING. HEMPHILL CATHETER IN PLACE DRAINING YELLOW URINE. ALL SAFETY MEASURES IN PLACE WITH BED IN LOWEST LOCKED POSITION, SIDE RAILS UP X3, CALL LIGHT AND TABLE WITHIN REACH. WILL CONTINUE TO MONITOR.
[2022-08-16 07:34] LABS: CALCIUM, SERUM 7.4 mg/dL (8.5-10.1); CREATININE 0.6 mg/dL (0.6-1.3); MAGNESIUM 1.6 mg/dL (1.8-2.4); PHOSPHORUS 1.8 mg/dL (2.5-4.9)
[2022-08-16 07:39] LABS: POTASSIUM 2.8 mmol/L (3.5-5.1)
[2022-08-16] MEDS: PANTOPRAZOLE 40 MG VIAL IV SCH (08:06)
[2022-08-16 08:27] LABS: HEMOGLOBIN 6.8 g/dL (11.5-14.8)
--- NOTE | 2022-08-16 08:52 | NUR ---
CRITICAL LAB FOR HGB 6.8. DR QUARLES NOTIFIED.
--- NOTE | 2022-08-16 08:56 | NUR ---
was notified re; her hgb 7 and hct 21 k Level was 2.8 and orders received at present time will give kcl 80 meq today ivpb
--- NOTE | 2022-08-16 09:34 | NUR ---
KAMILLA from rt side 10ml of cloudy color kamilla left side 110 ml of clear yellow color noted will continue to assess and evaluate Addendum: 08/16/22 at 0941 by KYLE POWERS RN RT side 110ml of cleare yellow color and left side of 10ml of cloudy color
[2022-08-16] MEDS: HYDROMORPHONE 1 MG/1 ML DISP.SYRIN IV PRN ×3 (09:59→23:47)
[2022-08-16] MEDS: Magnesium 1GM/D5W 100ML PREMIX 100 ML IV SCH ×2 (10:54→10:55)
[2022-08-16] MEDS: Potassium Chloride 20 MEQ in IV NS 0.9% 1,000 ML IV SCH ×2 (11:40→23:51)
[2022-08-16] MEDS: POTASSIUM CL. PREMIX PERIPHER. 50 ML IV SCH ×10 (11:40→21:41)
[2022-08-16] MEDS ORDERED: TPN IV SCH ×4 (11:51)
[2022-08-16] MEDS ORDERED: POTASSIUM PHOSPHATE MM 7.5 MMOL in IV NS 0.9% 100 ML IV SCH (12:00)
[2022-08-16] MEDS: FAT EMULSION 20% 500 ML in PREMIX 1 EA IV SCH (14:53)
[2022-08-16] MEDS: MICAFUNGIN SODIUM 100 MG in IV NS 0.9% 100 ML IV SCH (16:08)
[2022-08-16] MEDS ORDERED: Potassium Chloride 40 MEQ in IV NS 0.9% 1,000 ML IV SCH (17:30)
--- NOTE | 2022-08-16 18:00 | NUR ---
POTASSIUM CHLORIDE 10 MEQ COULD NOT BE GIVEN SCHEDULED DUE TO BLOOD TRANSFUSION AT 1230. ANOTHER ORDER FOR POTASSIUM WAS ALSO GIVEN OVER 3 HOURS. PHARMACY RESET 3 POTASSIUM CHLORIDE 10 MEQ BAGS TO START AT 1800.
[2022-08-16] MEDS: ACETAMINOPHEN 650 MG/20.3 ML UDC GT PRN (18:06)
--- NOTE | 2022-08-16 19:30 | NUR ---
WILDLIFE ENFORCEMENT MAJOR OPENING NOTE RECEIVED PATIENT, IN SITTING POSITION, RESTING COMFORTABLY, ALERT AND ORIENTED X4. SLOVAK SPEAKING ONLY. ON ROOM AIR, TOLERATING WELL WITH NO S/SX OF ACUTE RESPIRATORY DISTRESS NOTED AT THIS TIME. NO SOB. BREATHING IS EVEN AND UNLABORED. ON TELE MONITOR READING SINUS TACHYCARDIA, HR IN 100s. IV ACCESS ON DENTON ML, RUNNING 20 MEQ KCL @ 75 CC/HR AND BELINDA PICC LINE RUNNING TPN @ 60 ML/HR, AND LIPIDS @ 20.833. ALL PATENT AND INTACT. BOTH IRASEMA DRAINS INTACT AND DRAINING MINIMAL OUTPUT AT THIS TIME. HEMPHILL CATHETER IN PLACE DRAINING YELLOW URINE BY GRAVITY. ALL SAFETY MEASURES IN PLACE: BED IN LOWEST LOCKED POSITION, SIDE RAILS UP X3, CALL LIGHT AND TABLE WITHIN REACH. WILL CONTINUE TO MONITOR.
--- NOTE | 2022-08-16 19:30 | NUR ---
DIRECTOR OF PROVIDER RELATIONS CLOSING NOTE PATIENT ON CHAIR BESIDE CHAIR. ALERT AND ORIENTED X4. ON ROOM AIR WITH NO S/S OF SOB OR RESPIRATORY DISTRESS. BREATHING EVEN AND UNLABORED. ON TELE MONITOR READING SINUS TACHYCARDIA. IV ACCESS AT DENTON ML PATENT AND INTACT WITH NO SIGNS OF INFILTRATION. BELINDA PICC LINE RUNNING TPN @ 60 ML/HR, LIPIDS @ 20.833 AND POTASSIUM 10 MEQ PIGGYBACKING OFF NS 20 MEQ KCL @ 75 ML/HR. BOTH IRASEMA DRAINS INTACT AND DRAINING. HEMPHILL CATHETER IN PLACE DRAINING YELLOW URINE. BLOOD PRODUCT ADMINISTERED, ALL DUE MEDS GIVEN, AND PAIN RELIEF ADMINISTERED. ALL SAFETY MEASURES IN PLACE WITH BED IN LOWEST LOCKED POSITION, SIDE RAILS UP X3, CALL LIGHT AND TABLE WITHIN REACH. WILL ENDORSE TO ONCOMING SHIFT FOR KARUNA.
[2022-08-16] MEDS: ONDANSETRON HCL/PF 4 MG/2 ML VIAL IVP PRN (20:43)
[2022-08-17] VITALS (7 sets, daily range): BP systolic 155–178; BP diastolic 93–115
[2022-08-17] MEDS: METOCLOPRAMIDE HCL 10 MG/2 ML VIAL IV SCH ×4 (03:54→22:17)
[2022-08-17] MEDS: MORPHINE SULFATE INJ 4 MG/ML DISP.SYRIN IV PRN ×4 (03:55→23:57)
[2022-08-17] MEDS ORDERED: TPN IV SCH ×2 (04:00)
[2022-08-17] MEDS: CEFEPIME 2 GM in IV D5W 100 ML IV SCH ×3 (04:14→21:46)
--- NOTE | 2022-08-17 04:22 | NUR ---
JAMARCUS SIMS WAS ABLE TO HANG BAG #9 OF THE TPN SCHEDULED @ 0400 FOR THE PT. HOWEVER, BAG #8 SUPPOSEDLY SCHEDULED FOR 035 WAS ALREADY RUNNING EVEN BEFORE THE BEGINNING OF THE VESSEL BUILDER. TRIED TO CALL PHARMACY FOR VERIFICATION LAST NIGHT BUT NEVER GOT TO TALK TO ANYONE. WILL CLARIFY AGAIN IN THE AM LATER. Addendum: 08/17/22 at 0642 by VALERY AGUILAR RN PHARMACY OFFICE WAS UNAVAILABLE THE TIME I CALLED. CALLED BACK IN THE AM @ 0697.
[2022-08-17] MEDS: METRONIDAZOLE 500MG/ NS 100ML 500 MG in PREMIX 1 EA IV SCH ×3 (04:45→20:19)
[2022-08-17] MEDS: HYDROMORPHONE 1 MG/1 ML DISP.SYRIN IV PRN ×3 (05:54→20:19)
[2022-08-17] MEDS: BLOOD SUGAR DIAGNOSTIC 1 EACH STRIP IN SCH ×3 (05:55→18:00)
[2022-08-17] MEDS: INSULIN REGULAR, HUMAN 100 UNIT/ML 3 ML VIAL SQ PRN ×3 (05:56→18:05)
--- NOTE | 2022-08-17 06:42 | NUR ---
RN NOTE TALKED TO DERRELL FROM PHARMACY AND CLARIFIED THE TPN SCHEDULED FOR 350. SHE SAID ON THEIR END, EVERYTHING WAS ALREADY GIVEN, ALTHOUGH IT IS SHOWING NOT ADMINISTERED ON THE EMAR. WILL ENDORSE TO AM SHIFT NURSE.
[2022-08-17 06:48] LABS: CALCIUM, SERUM 7.4 mg/dL (8.5-10.1); CREATININE 0.5 mg/dL (0.6-1.3); MAGNESIUM 1.7 mg/dL (1.8-2.4); PHOSPHORUS 1.8 mg/dL (2.5-4.9); POTASSIUM 3.6 mmol/L (3.5-5.1)
--- NOTE | 2022-08-17 06:49 | NUR ---
FORCE DISPATCHER CLOSING NOTE NO SIGNIFICANT CHANGE T/O THE NIGHT. PT REMAINED IN PAIN. PAIN MEDS GIVEN EVERY 4H, ORDERED. ALL DUE MEDS GIVEN. NEEDS MET. PM CARE DONE. TURNED AND REPOSITIONED. WILL ENDORSE TO AM SHIFT NURSE FOR KARUNA.
--- NOTE | 2022-08-17 07:41 | NUR ---
ASSISTANT DIRECTOR OF RESIDENCE LIFE OPENING NOTE RECEIVED PATIENT, RESTING COMFORTABLY IN BED, ALERT AND ORIENTED X4. IRANIAN SPEAKING ONLY. ON ROOM AIR, TOLERATING WELL WITH NO S/SX OF ACUTE RESPIRATORY DISTRESS NOTED AT THIS TIME. NO SOB. BREATHING IS EVEN AND UNLABORED. ON TELE MONITOR READING SINUS TACHYCARDIA, HR 106.IV ACCESS ON DENTON ML, RUNNING 20 MEQ KCL @ 75 CC/HR AND BELINDA PICC LINE RUNNING TPN @ 60 ML/HR, AND LIPIDS @ 20.833. ALL PATENT AND INTACT. BOTH IRASEMA DRAINS INTACT.HEMPHILL CATHETER IN PLACE DRAINING YELLOW URINE BY GRAVITY. ALL SAFETY MEASURES IN PLACE: BED IN LOWEST LOCKED POSITION, SIDE RAILS UP X3, CALL LIGHT AND TABLE WITHIN REACH. BED ALARM ON
[2022-08-17] MEDS ORDERED: Magnesium 1GM/D5W 100ML PREMIX 100 ML IV SCH (08:00)
[2022-08-17] MEDS: PANTOPRAZOLE 40 MG VIAL IV SCH (08:03)
[2022-08-17 08:59] LABS: BASOPHILS % (AUTO) 0.4 % (0.0-2.0); EOSINOPHILS % (AUTO) 1.8 % (0.0-6.0); HEMATOCRIT 26 % (33-45); HEMOGLOBIN 8.6 g/dL (11.5-14.8); LYMPHOCYTES # (AUTO) 0.4 K/uL (0.8-4.8); MEAN CORPUSCULAR HGB CONC 33 g/dl (31.0-36.0); MEAN CORPUSCULAR VOLUME 83 fL (82-100); MONOCYTES % (AUTO) 11.7 % (2.0-12.0); NEUTROPHILS # (AUTO) 6.8 K/uL (1.8-8.9); NEUTROPHILS % (AUTO) 81.1 % (43.0-81.0); PLATELET COUNT (AUTO) 192 K/uL (150-450); RED BLOOD CELL COUNT(AUTO) 3.15 MIL/uL (4.0-5.2); WHITE BLOOD COUNT (AUTO) 8.3 K/uL (4.3-11.0)
[2022-08-17] MEDS: ACETAMINOPHEN 650 MG/20.3 ML UDC GT PRN (11:12)
[2022-08-17] MEDS: Potassium Chloride 20 MEQ in IV NS 0.9% 1,000 ML IV SCH (15:57)
[2022-08-17] MEDS: MICAFUNGIN SODIUM 100 MG in IV NS 0.9% 100 ML IV SCH (15:58)
--- NOTE | 2022-08-17 19:33 | NUR ---
MINE EXPERT CLOSING NOTE PATIENT IN BED, ALERT AND ORIENTED X4. YAKUT SPEAKING ONLY. ON ROOM AIR, TOLERATING WELL AT 98%. WITH NO S/SX OF ACUTE RESPIRATORY DISTRESS NOTED AT THIS TIME. NO SOB. BREATHING IS EVEN AND UNLABORED. ON TELE MONITOR READING SINUS TACHYCARDIA, IV ACCESS ON DENTON ML, RUNNING 20 MEQ KCL @ 75 CC/HR AND BLEINDA PICC LINE RUNNING TPN @ 60 ML/HR, ALL PATENT AND INTACT. BOTH IRASEMA DRAINS INTACT.SMALL OUTPUT. HEMPHILL CATHETER IN PLACE DRAINING YELLOW URINE BY GRAVITY. ALL SAFETY MEASURES IN PLACE: BED IN LOWEST LOCKED POSITION, SIDE RAILS UP X3, CALL LIGHT AND TABLE WITHIN REACH. BED ALARM ON.ENDORSED TO KING MAKER RN FOR CONTUITY OF CARE
[2022-08-17] MEDS ORDERED: TPN BAG #10 IV SCH ×3 (20:00)
--- NOTE | 2022-08-17 21:59 | NUR ---
RN NOTE SPOKE WITH NEIL FROM [facility], GAVE UPDATE, STILL PENDING FINANCIAL CLEARANCE.
[2022-08-17] MEDS: ONDANSETRON HCL/PF 4 MG/2 ML VIAL IVP PRN (23:57)
[2022-08-18] VITALS (7 sets, daily range): BP systolic 147–174; BP diastolic 95–121
[2022-08-18] MEDS: BLOOD SUGAR DIAGNOSTIC 1 EACH STRIP IN SCH ×4 (00:17→18:27)
[2022-08-18] MEDS: INSULIN REGULAR, HUMAN 100 UNIT/ML 3 ML VIAL SQ PRN ×3 (00:27→18:29)
[2022-08-18] MEDS: HYDROMORPHONE 1 MG/1 ML DISP.SYRIN IV PRN (01:44)
[2022-08-18] MEDS: Potassium Chloride 20 MEQ in IV NS 0.9% 1,000 ML IV SCH ×2 (02:52→17:40)
[2022-08-18] MEDS: METRONIDAZOLE 500MG/ NS 100ML 500 MG in PREMIX 1 EA IV SCH (04:19)
[2022-08-18] MEDS: MORPHINE SULFATE INJ 4 MG/ML DISP.SYRIN IV PRN ×4 (04:19→22:16)
[2022-08-18] MEDS: METOCLOPRAMIDE HCL 10 MG/2 ML VIAL IV SCH ×4 (04:19→21:57)
[2022-08-18] MEDS: CEFEPIME 2 GM in IV D5W 100 ML IV SCH (05:29)
[2022-08-18 06:15] LABS: BASOPHILS % (AUTO) 0.3 % (0.0-2.0); EOSINOPHILS % (AUTO) 0.4 % (0.0-6.0); HEMATOCRIT 27 % (33-45); HEMOGLOBIN 8.6 g/dL (11.5-14.8); LYMPHOCYTES # (AUTO) 0.5 K/uL (0.8-4.8); MEAN CORPUSCULAR HGB CONC 32 g/dl (31.0-36.0); MEAN CORPUSCULAR VOLUME 84 fL (82-100); MONOCYTES # (AUTO) 1.1 K/uL (0.1-1.30); MONOCYTES % (AUTO) 10.9 % (2.0-12.0); NEUTROPHILS # (AUTO) 8.3 K/uL (1.8-8.9); NEUTROPHILS % (AUTO) 83.4 % (43.0-81.0); PLATELET COUNT (AUTO) 145 K/uL (150-450); RED BLOOD CELL COUNT(AUTO) 3.17 MIL/uL (4.0-5.2); WHITE BLOOD COUNT (AUTO) 9.9 K/uL (4.3-11.0)
--- NOTE | 2022-08-18 06:42 | NUR ---
RN CLOSING NOTE A/OX3. ROOM AIR.SINUS TACH ON THE MNITOR. C/O PAIN PRN MORPHINE, DILUADID AND ZOFRAN GIVEN FOR EMESIS X3. HEMPHILL MAINTAINED , OUTPUT 1600ML. NO BM. PEG TO LIS. IRASEMA DRAIN ON LEFT 5ML BLACK. IRASEMA DRAIN ON THE RIGHT SEROUS/ YELLOW 370ML. NPO. TPN RUNNING AT 60. 20KCL@75ML. IV ABX ORDERED. PLAN TO TRANSFER HL PENDING FINANCIAL CLEARANCE.
[2022-08-18 07:09] LABS: CALCIUM, SERUM 7.3 mg/dL (8.5-10.1); CREATININE 0.6 mg/dL (0.6-1.3); PHOSPHORUS 2.4 mg/dL (2.5-4.9)
--- NOTE | 2022-08-18 07:35 | NUR ---
TUBING MACHINE TENDER OPENING NOTE RECEIVED PATIENT IN BED, AWAKE, ALERT AND ORIENTED X4. AZERI SPEAKING ONLY, UNDERSTAND A LITTLE CHINESE. ON ROOM AIR AND PT TOLERATING WELL. BREATHING EVEN AND UNLABORED. ON BRIM AND CROWN PRESSER SINUS TACHYCARDIA. IV ACCESS ON DENTON ML, RUNNING 20 MEQ KCL @ 75 CC/HR AND BELINDA PICC LINE RUNNING TPN @ 60 ML/HR. NO C/O PAIN OR DISCOMFORT. NO ACUTE DISTRESS.BOTH IRASEMA DRAINING WELL. NOTED WITH OUTPUT. GTUBE DRAINING IN LOW INTERMITTENT SUCTION. HEMPHILL CATHETER IN PLACE, DRAINING YELLOWISH/ CLEAR URINE. ALL SAFETY MEASURES IN PLACE. BED IN LOWEST POSITION AND LOCKED, SIDE RAILS UP X3, PLACE CALL LIGHT WITHIN REACH. BED ALARM ON. WILL CONTINUE TO MONITOR THROUGHOUT SHIFT
[2022-08-18 07:59] LABS: MAGNESIUM 1.2 mg/dL (1.8-2.4); POTASSIUM 2.6 mmol/L (3.5-5.1)
--- NOTE | 2022-08-18 08:05 | NUR ---
RN NOTE LABORATORY CALLED. INFORMED DR GAINES OF K RESULT OF 2.6 AND MG OF 1.2. MD ORDERED TO ADMINISTER 70 MEQS KCL AND 4G MG. PHARMACY AWARE. CHARGE NURSE AWARE. ORDER NOTED AND CARRIED OUT.
[2022-08-18] MEDS: PANTOPRAZOLE 40 MG VIAL IV SCH (09:44)
[2022-08-18] MEDS: Magnesium 1GM/D5W 100ML PREMIX 100 ML IV SCH ×4 (09:44→14:08)
[2022-08-18] MEDS: POTASSIUM CL. PREMIX PERIPHER. 50 ML IV SCH ×10 (09:46→21:56)
[2022-08-18] MEDS ORDERED: TPN BAG #11 IV SCH ×4 (12:00)
--- NOTE | 2022-08-18 12:00 | NUR ---
RN NOTE ACCUCHECK IS 221, PATIENT REFUSED INSULIN JUST WANTED MORPHINE FOR PAIN. OFFERED MEDICATION 3X, BENEFITS AND CONSEQUENCES OF REFUSING MEDICATION WAS PROVIDED. WILL CONINUE TO MONITOR PATIENT
[2022-08-18] MEDS: PIPERACILLIN /TAZOBACTAM 3.375 G in IV D5W 100 ML IV SCH ×2 (12:47→20:23)
[2022-08-18] MEDS: MICAFUNGIN SODIUM 100 MG in IV NS 0.9% 100 ML IV SCH (14:34)
[2022-08-18] MEDS: FAT EMULSION 20% 500 ML in PREMIX 1 EA IV SCH (14:56)
--- NOTE | 2022-08-18 16:37 | NUR ---
RN NOTES COMPLETED 7 BAGS OF POTASSIUM CHLORIDE IV (10 MEQS) EACH BAG. NON ADMIN 1500 AND 1600 SCHEDULED DRIP. PHARMACY INFORMED. CHARGE NURSE AWARE
[2022-08-18] MEDS ORDERED: POTASSIUM PHOSPHATE MM 7.5 MMOL in IV NS 0.9% 100 ML IV SCH ×4 (17:00)
--- NOTE | 2022-08-18 17:00 | NUR ---
RN NOTE INFORMED DR GAINES OF BP 172/121 WITH ORDERS MADE TO GIVE HYDRALAZINE 10 MG IV PRN. RECHECK BP POST 30 MINUTES AND BP WENT DOWN TO 148/98. CHARGE NURSE AWARE.
[2022-08-18] MEDS: hydrALAZINE HCL IV 20 MG VIAL IV PRN (17:16)
--- NOTE | 2022-08-18 19:30 | NUR ---
RN NOTE DR ORDERED VIA TEXT TO PLACE AN ORDER FOR REPEAT BMP AND MG LABS POST KCL DRIP. CHARGE NURSE MADE AWARE. ORDER NOTED AND CARRIED OUT
--- NOTE | 2022-08-18 19:40 | NUR ---
CROP SPECIALIST OPENING NOTE RECEIVED PATIENT IN BED, AWAKE, ALERT AND ORIENTED X4. IRISH SPEAKING ONLY. ON ROOM AIR AND PT TOLERATING WELL. BREATHING EVEN AND UNLABORED. ON PUBLIC HEALTH VETERINARIAN SINUS TACHYCARDIA. IV ACCESS ON DENTON ML, RUNNING 20 MEQ KCL @ 75 CC/HR AND BELINDA PICC LINE RUNNING TPN @ 60 ML/HR. NO C/O PAIN OR DISCOMFORT. NO ACUTE DISTRESS.BOTH IRASEMA DRAINING WELL. NOTED WITH OUTPUT. GTUBE DRAINING WITH LOW SUCTIONING. HEMPHILL CATHETER IN PLACE, DRAINING YELLOWISH/ CLEAR URINE. ALL SAFETY MEASURES IN PLACE. BED IN LOWEST POSITION AND LOCKED, SIDE RAILS UP X3, PLACE CALL LIGHT WITHIN REACH. BED ALARM ON. WILL CONTINUE TO MONITOR
--- NOTE | 2022-08-18 19:40 | NUR ---
DIRECTOR CARDIOLOGY CLOSING NOTE PATIENT IN BED, AWAKE, ALERT AND ORIENTED X4. CZECH SPEAKING ONLY, UNDERSTAND A LITTLE YI. ON ROOM AIR AND PT TOLERATING WELL. BREATHING EVEN AND UNLABORED. ON COTTON FARMWORKER SINUS TACHYCARDIA WITH HR OF 126. IV ACCESS ON DENTON ML, RUNNING 20 MEQ KCL @ 75 CC/HR AND BELINDA PICC LINE RUNNING TPN @ 60 ML/HR. NO C/O PAIN OR DISCOMFORT. NO ACUTE DISTRESS.BOTH IRASEMA DRAINING WELL WITH TOTAL OUTPUT OF 260. GTUBE DRAINING IN LOW INTERMITTENT SUCTION WITH OUTPUT OF 200 ML. HEMPHILL CATHETER IN PLACE, DRAINING YELLOWISH/ CLEAR URINE WITH OUTPUT OF 800 ML. ALL SAFETY MEASURES IN PLACE. BED IN LOWEST POSITION AND LOCKED, SIDE RAILS UP X3, PLACE CALL LIGHT WITHIN REACH. BED ALARM ON. WILL ENDORSE TO MARCELO SHIFT NURSE
[2022-08-18] MEDS ORDERED: Magnesium 1GM/D5W 100ML PREMIX 100 ML IV SCH (21:00)
--- NOTE | 2022-08-18 22:20 | NUR ---
RN NOTES: PT C/O SEVERE PAIN ON ABDOMEN AREA. MORPHINE GIVEN PRN ORDERED. WILL CONTINUE TO MONITOR
[2022-08-19] VITALS: BP_SYST 154; BP_SYST 163; BP_DIAS 104; BP_DIAS 105
[2022-08-19] MEDS: BLOOD SUGAR DIAGNOSTIC 1 EACH STRIP IN SCH ×5 (00:12→23:42)
[2022-08-19] MEDS: INSULIN REGULAR, HUMAN 100 UNIT/ML 3 ML VIAL SQ PRN ×4 (00:13→23:44)
[2022-08-19 02:11] LABS: CALCIUM, SERUM 7.7 mg/dL (8.5-10.1); CREATININE 0.7 mg/dL (0.6-1.3); MAGNESIUM 2.1 mg/dL (1.8-2.4); POTASSIUM 3.4 mmol/L (3.5-5.1)
[2022-08-19] MEDS: MORPHINE SULFATE INJ 4 MG/ML DISP.SYRIN IV PRN ×3 (02:34→20:38)
--- NOTE | 2022-08-19 02:44 | NUR ---
RN NOTES: PT C/O SEVERE ABDOMEN PAIN, MORPHINE GIVEN PRN ORDERED. WILL CONTINUE TO MONITOR
[2022-08-19 04:00] VITALS: BP 160/104
[2022-08-19] MEDS ORDERED: TPN BAG #12 IV SCH ×2 (04:00)
[2022-08-19] MEDS: METOCLOPRAMIDE HCL 10 MG/2 ML VIAL IV SCH ×4 (04:05→21:09)
[2022-08-19] MEDS: PIPERACILLIN /TAZOBACTAM 3.375 G in IV D5W 100 ML IV SCH ×3 (04:05→20:32)
--- NOTE | 2022-08-19 05:41 | NUR ---
RN NOTES: PT'S BLOOD SUGAR 139. 2 UNITS OF REGULAR INSULIN GIVEN. NO S/S OF HYPER/HYPOGLYCEMIA. WILL CONTINUE TO MONITOR
[2022-08-19] MEDS: Potassium Chloride 20 MEQ in IV NS 0.9% 1,000 ML IV SCH ×2 (06:03→19:55)
[2022-08-19 06:19] LABS: CALCIUM, SERUM 7.5 mg/dL (8.5-10.1); CREATININE 0.7 mg/dL (0.6-1.3); MAGNESIUM 1.8 mg/dL (1.8-2.4); PHOSPHORUS 1.8 mg/dL (2.5-4.9); POTASSIUM 3.4 mmol/L (3.5-5.1)
--- NOTE | 2022-08-19 06:45 | NUR ---
HADOOP ANALYST CLOSING NOTE PATIENT IN BED, AWAKE, ALERT AND ORIENTED X4. SUDANESE SPEAKING ONLY. ON ROOM AIR AND PT TOLERATING WELL. O2 SAT 97%. BREATHING EVEN AND UNLABORED. IV ACCESS ON DENTON ML, RUNNING 20 MEQ KCL @ 75 CC/HR AND BELINDA PICC LINE RUNNING TPN @ 60 ML/HR. NO C/O PAIN OR DISCOMFORT. NO ACUTE DISTRESS.BOTH IRASEMA DRAINING WELL. LT SIDE NOTED WITH 75 CC OUTPUT AND RT SIDE NOTED WITH 100CC OUTPUT. GTUBE DRAINING WITH LOW SUCTIONING. 150CC OUTPUT. HEMPHILL CATHETER IN PLACE, DRAINING YELLOWISH/ CLEAR URINE. ALL DUE MEDS GIVEN ORDERED. ALL SAFETY MEASURES IN PLACE. BED IN LOWEST POSITION AND LOCKED, SIDE RAILS UP X3, PLACE CALL LIGHT WITHIN REACH. BED ALARM ON. WILL ENDORSE TO MORNING SHIFT NURSE.
--- NOTE | 2022-08-19 07:15 | NUR ---
COMPOSITION WORKER OPENING NOTE RECEIVED PATIENT IN BED, AWAKE, ALERT AND ORIENTED X4. WOLOF SPEAKING ONLY. ON ROOM AIR AND PT TOLERATING WELL. BREATHING EVEN AND UNLABORED. ON APPRENTICE LINEMAN THIRD STEP SINUS TACHYCARDIA. IV ACCESS ON DENTON ML, RUNNING 20 MEQ KCL @ 75 CC/HR AND BELINDA PICC LINE RUNNING TPN @ 60 ML/HR. NO C/O PAIN OR DISCOMFORT. NO ACUTE DISTRESS.BOTH IRASEMA DRAINING WELL. NOTED WITH OUTPUT. GTUBE DRAINING WITH LOW SUCTIONING. HEMPHILL CATHETER IN PLACE, DRAINING YELLOWISH/ CLEAR URINE. ALL SAFETY MEASURES IN PLACE. BED IN LOWEST POSITION AND LOCKED, SIDE RAILS UP X3, PLACE CALL LIGHT WITHIN REACH. BED ALARM ON. WILL CONTINUE TO MONITOR
[2022-08-19 08:00] VITALS: BP 166/111
[2022-08-19] MEDS: PANTOPRAZOLE 40 MG VIAL IV SCH (08:26)
[2022-08-19] MEDS: POTASSIUM PHOSPHATE MM 7.5 MMOL in IV NS 0.9% 100 ML IV SCH ×3 (09:48→15:24)
[2022-08-19] MEDS ORDERED: CLONIDINE HCL 0.1MG/24H PTWK 1 EA PATCH TD SCH (11:00)
[2022-08-19 11:19] LABS: BASOPHILS % (AUTO) 0.2 % (0.0-2.0); EOSINOPHILS % (AUTO) 0.5 % (0.0-6.0); HEMATOCRIT 29 % (33-45); HEMOGLOBIN 9.4 g/dL (11.5-14.8); LYMPHOCYTES # (AUTO) 0.5 K/uL (0.8-4.8); LYMPHOCYTES % (AUTO) 3.7 % (20.0-44.0); MEAN CORPUSCULAR HGB CONC 33 g/dl (31.0-36.0); MEAN CORPUSCULAR VOLUME 85 fL (82-100); MONOCYTES # (AUTO) 1.3 K/uL (0.1-1.30); MONOCYTES % (AUTO) 9.4 % (2.0-12.0); NEUTROPHILS # (AUTO) 11.5 K/uL (1.8-8.9); NEUTROPHILS % (AUTO) 86.2 % (43.0-81.0); PLATELET COUNT (AUTO) 136 K/uL (150-450); RED BLOOD CELL COUNT(AUTO) 3.41 MIL/uL (4.0-5.2); WHITE BLOOD COUNT (AUTO) 13.3 K/uL (4.3-11.0)
[2022-08-19 12:00] VITALS: BP 137/80
[2022-08-19] MEDS ORDERED: TPN BAG #14 IV SCH ×4 (13:00)
[2022-08-19] MEDS: MICAFUNGIN SODIUM 100 MG in IV NS 0.9% 100 ML IV SCH (13:24)
[2022-08-19] MEDS: HYDROMORPHONE 1 MG/1 ML DISP.SYRIN IV PRN (15:29)
[2022-08-19 16:00] VITALS: BP 138/74
--- NOTE | 2022-08-19 18:40 | NUR ---
HEALTH INFORMATICS SPECIALIST CLOSING NOTE PATIENT IN BED, AWAKE, ALERT AND ORIENTED X4. LAO SPEAKING ONLY. ON ROOM AIR AND PT TOLERATING WELL. O2 SAT 97%. BREATHING EVEN AND UNLABORED. IV ACCESS ON DENTON ML, RUNNING 20 MEQ KCL @ 75 CC/HR AND BELINDA PICC LINE RUNNING TPN @ 60 ML/HR. NO C/O PAIN OR DISCOMFORT. NO ACUTE DISTRESS.BOTH IRASEMA DRAINING WELL. LT SIDE NOTED WITH 75 CC OUTPUT AND RT SIDE NOTED WITH 100CC OUTPUT. GTUBE DRAINING WITH LOW SUCTIONING. 120CC OUTPUT. HEMPHILL CATHETER IN PLACE, DRAINING YELLOWISH/ CLEAR URINE. ALL DUE MEDS GIVEN ORDERED. ALL SAFETY MEASURES IN PLACE. BED IN LOWEST POSITION AND LOCKED, SIDE RAILS UP X3, PLACE CALL LIGHT WITHIN REACH. BED ALARM ON. WILL ENDORSE TO STOPPER MAKER HELPER NURSE.
--- NOTE | 2022-08-19 19:45 | NUR ---
BLENDING SUPERVISOR OPENING NOTES RECEIVED PATIENT IN BED, SITTING POSITION, AWAKE, ALERT AND ORIENTED X4. LITHUANIAN SPEAKING ONLY. ON ROOM AIR AND PT TOLERATING WELL. BREATHING EVEN AND UNLABORED. ON TERMINAL PRESS OPERATOR SHOWS SINUS TACHYCARDIA. IV ACCESS ON DENTON ML AND BELINDA PICC LINE RUNNING TPN @ 60 ML/HR AND RUNNING 20 MEQ KCL @ 75 CC/HR. NO C/O PAIN OR DISCOMFORT. NO ACUTE DISTRESS. BOTH IRASEMA DRAINING WELL. NOTED WITH OUTPUT. GTUBE DRAINING WITH LOW SUCTIONING. HEMPHILL CATHETER IN PLACE, DRAINING YELLOWISH/ CLEAR URINE. ALL SAFETY MEASURES IN PLACE. BED IN LOWEST POSITION AND LOCKED, SIDE RAILS UP X3, PLACE CALL LIGHT WITHIN REACH. BED ALARM ON. WILL CONTINUE TO MONITOR
[2022-08-19 20:00] VITALS: BP 157/104
[2022-08-19] MEDS ORDERED: TPN BAG #13 IV SCH ×3 (20:00)
--- NOTE | 2022-08-19 20:28 | NUR ---
RN NOTES: RECEIVED A PHONE CALL FROM [facility] AND TALKED TO SONALI. SURGEON REVIEWED PT'S CHART. NOT CANDIDATE FOR ANY SURGERY. SUGGESTED PT CAN RECEIVE CHEMO WHEN SHE IS STABLE.
--- NOTE | 2022-08-19 20:45 | NUR ---
RN NOTES: PT C/O SEVERE ABDOMEN PAIN, MORPHINE GIVEN PRN ORDERED. WILL CONTINUE TO MONITOR
[2022-08-19] MEDS ORDERED: Magnesium 1GM/D5W 100ML PREMIX 100 ML IV SCH (21:00)
[2022-08-20] VITALS: BP 154/105
--- NOTE | 2022-08-20 00:28 | NUR ---
RN NOTES: PT VERBALIZED, SHE WANTS TO HURT HERSELF BECAUSE ONE OF HER SON TOLD HER, HE DOESN'T CARE IF SHE DIES. NOTIFIED INDUSTRIAL PSYCHOLOGIST. BERNADETTE. ORDER PSYCHE CONSULT TOMORROW. ORDER NOTED AND CARRIED OUT.
[2022-08-20] MEDS: MORPHINE SULFATE INJ 4 MG/ML DISP.SYRIN IV PRN ×3 (00:42→22:24)
[2022-08-20 04:00] VITALS: BP 148/103
[2022-08-20] MEDS: METOCLOPRAMIDE HCL 10 MG/2 ML VIAL IV SCH ×4 (04:00→22:24)
[2022-08-20] MEDS: PIPERACILLIN /TAZOBACTAM 3.375 G in IV D5W 100 ML IV SCH ×3 (04:00→20:38)
[2022-08-20] MEDS: HYDROMORPHONE 1 MG/1 ML DISP.SYRIN IV PRN ×2 (04:54→18:52)
--- NOTE | 2022-08-20 05:05 | NUR ---
RN NOTES: PT C/O SEVERE ABDOMEN PAIN, 12/22. DILAUDID GIVEN PRN ORDERED. WILL CONTINUE TO MONITOR
[2022-08-20] MEDS: BLOOD SUGAR DIAGNOSTIC 1 EACH STRIP IN SCH ×4 (05:49→23:05)
[2022-08-20] MEDS: INSULIN REGULAR, HUMAN 100 UNIT/ML 3 ML VIAL SQ PRN ×2 (05:50→23:12)
--- NOTE | 2022-08-20 05:50 | NUR ---
RN NOTES: PT'S BLOOD SUGAR 109. NO COVERAGE NEEDED. NO S/S OF HYPER/HYPOGLYCEMIA, WILL CONTINUE TO MONITOR
[2022-08-20 06:38] LABS: BASOPHILS % (AUTO) 0.2 % (0.0-2.0); EOSINOPHILS % (AUTO) 0.6 % (0.0-6.0); HEMATOCRIT 30 % (33-45); HEMOGLOBIN 9.6 g/dL (11.5-14.8); LYMPHOCYTES # (AUTO) 0.5 K/uL (0.8-4.8); LYMPHOCYTES % (AUTO) 4.4 % (20.0-44.0); MEAN CORPUSCULAR HGB CONC 31 g/dl (31.0-36.0); MEAN CORPUSCULAR VOLUME 86 fL (82-100); MONOCYTES # (AUTO) 1.2 K/uL (0.1-1.30); MONOCYTES % (AUTO) 10.9 % (2.0-12.0); NEUTROPHILS # (AUTO) 9.4 K/uL (1.8-8.9); NEUTROPHILS % (AUTO) 83.9 % (43.0-81.0); PLATELET COUNT (AUTO) 120 K/uL (150-450); RED BLOOD CELL COUNT(AUTO) 3.54 MIL/uL (4.0-5.2); WHITE BLOOD COUNT (AUTO) 11.2 K/uL (4.3-11.0)
[2022-08-20 06:48] LABS: CALCIUM, SERUM 7.8 mg/dL (8.5-10.1); CREATININE 0.7 mg/dL (0.6-1.3); MAGNESIUM 1.8 mg/dL (1.8-2.4); PHOSPHORUS 2.5 mg/dL (2.5-4.9); POTASSIUM 3.2 mmol/L (3.5-5.1)
--- NOTE | 2022-08-20 06:50 | NUR ---
PODIATRIC ASSISTANT CLOSING NOTES PATIENT IN BED, RESTING BUT EASILY AROUSABLE. AWAKE, ALERT AND ORIENTED X3-4. NORWEGIAN SPEAKING ONLY. ON ROOM AIR AND PT TOLERATING WELL. O2 SAT 100%. BREATHING EVEN AND UNLABORED. IV ACCESS ON DENTON ML, RUNNING 20 MEQ KCL @ 75 CC/HR AND BELINDA PICC LINE RUNNING TPN @ 60 ML/HR. NO C/O PAIN OR DISCOMFORT. NO ACUTE DISTRESS.BOTH IRASEMA DRAINING WELL. LT SIDE NOTED WITH 200 CC OUTPUT AND RT SIDE NOTED WITH 135CC OUTPUT. GTUBE DRAINING WITH LOW SUCTIONING. 20CC OUTPUT. HEMPHILL CATHETER IN PLACE, DRAINING YELLOWISH/ CLEAR URINE. ALL DUE MEDS GIVEN ORDERED. PT REMAIN CALM AT THIS MOMENT. ALL SAFETY MEASURES IN PLACE. BED IN LOWEST POSITION AND LOCKED, SIDE RAILS UP X3, PLACE CALL LIGHT WITHIN REACH. BED ALARM ON. WILL ENDORSE TO MORNING SHIFT NURSE.
--- NOTE | 2022-08-20 07:15 | NUR ---
SPARE FIXER OPENING NOTES RECEIVED PATIENT IN BED, SITTING POSITION, AWAKE, ALERT AND ORIENTED X4. POLISH SPEAKING ONLY. ON ROOM AIR AND PT TOLERATING WELL. BREATHING EVEN AND UNLABORED. ON JACK MACHINE OPERATOR SHOWS SINUS TACHYCARDIA. IV ACCESS ON DENTON ML AND BELINDA PICC LINE RUNNING TPN @ 60 ML/HR AND RUNNING 20 MEQ KCL @ 75 CC/HR. NO C/O PAIN OR DISCOMFORT. NO ACUTE DISTRESS. BOTH IRASEMA DRAINING WELL. GTUBE DRAINING WITH LOW SUCTIONING. HEMPHILL CATHETER IN PLACE, DRAINING YELLOWISH/ CLEAR URINE. ALL SAFETY MEASURES IN PLACE. BED IN LOWEST POSITION AND LOCKED, SIDE RAILS UP X3, PLACE CALL LIGHT WITHIN REACH. BED ALARM ON. WILL CONTINUE TO MONITOR
[2022-08-20 08:00] VITALS: BP 150/99
[2022-08-20] MEDS: PANTOPRAZOLE 40 MG VIAL IV SCH (08:26)
[2022-08-20] MEDS: Potassium Chloride 20 MEQ in IV NS 0.9% 1,000 ML IV SCH ×2 (08:26→22:34)
--- NOTE | 2022-08-20 11:20 | NUR ---
RN NOTE PATIENT PULLED OUT PICC LINE AND MID LINE , SHE STATED THAT SHE DO NOT WANT TO HAVE ANY TREATMENT AND REFUSING TO STAY AT THE HOSPITAL , PATIENT SIGH LEAVE AGAINST MEDICAL ADVISE ,DR GAINES NOTIFIED ORDER FOR XR TO CHECK IF THERE IS NO PICC LINE LEFT IN THE VEIN LEFT RECEIVED .
[2022-08-20 12:00] VITALS: BP 145/99
[2022-08-20] MEDS ORDERED: TPN BAG #14 IV SCH ×4 (13:00)
[2022-08-20] MEDS: MICAFUNGIN SODIUM 100 MG in IV NS 0.9% 100 ML IV SCH (13:00)
[2022-08-20] MEDS: POTASSIUM CL. PREMIX PERIPHER. 50 ML IV SCH ×2 (13:00→14:00)
[2022-08-20] MEDS: FAT EMULSION 20% 500 ML in PREMIX 1 EA IV SCH ×2 (14:00→18:31)
[2022-08-20 16:00] VITALS: BP 135/85
--- NOTE | 2022-08-20 16:20 | NUR ---
RN NOTE PATIENTS DAUGHTER AT THE BED SIDE .PATIENT DESIDED TO GO BACK TO THE PREVIOUS TREATMENT , CONSENT OBTAINED FOR A PICC LINE INSERTION
[2022-08-20] MEDS ORDERED: LORAZEPAM 0.5 MG TABLET PO PRN (18:00)
[2022-08-20] MEDS ORDERED: POTASSIUM PHOSPHATE MM 7.5 MMOL in IV NS 0.9% 100 ML IV SCH (18:00)
--- NOTE | 2022-08-20 18:07 | NUR ---
RN NOTE PICC LINE REINSERTED , CONFIRMED WITH PHARMACY AND WITH DR GAINES RESUME TPN AT 60 ML/HR , LIPID AT 20 ML/HR , IVF AND ALL THE MED BY SCHEDULE
--- NOTE | 2022-08-20 18:40 | NUR ---
ELECTRICAL ACCESSORIES ASSEMBLER CLOSING NOTES PATIENT IN BED, RESTING BUT EASILY AROUSABLE. AWAKE, ALERT AND ORIENTED X3-4. VINCENTIAN SPEAKING ONLY. ON ROOM AIR AND PT TOLERATING WELL. O2 SAT 100%. BREATHING EVEN AND UNLABORED. IV ACCESS ON LFA 22 G , RUNNING 20 MEQ KCL @ 75 CC/HR AND BELINDA PICC LINE RUNNING TPN @ 60 ML/HR AND LIPID AT 20 ML/HR NO C/O PAIN OR DISCOMFORT. NO ACUTE DISTRESS.BOTH IRASEMA DRAINING WELL. LT SIDE NOTED WITH 220 CC OUTPUT AND RT SIDE NOTED WITH 180 CC OUTPUT. GTUBE DRAINING WITH LOW SUCTIONING. 200 CC OUTPUT. HEMPHILL CATHETER IN PLACE, DRAINING YELLOWISH/ CLEAR URINE. ALL DUE MEDS RESUMED PT REMAIN CALM AT THIS MOMENT. ALL SAFETY MEASURES IN PLACE. BED IN LOWEST POSITION AND LOCKED, SIDE RAILS UP X3, PLACE CALL LIGHT WITHIN REACH. BED ALARM ON. WILL ENDORSE TO WALL MAN NURSE.
--- NOTE | 2022-08-20 19:50 | NUR ---
POLICE CRIME SCENE TECHNICIAN OPENING NOTES RECEIVED PATIENT AWAKE AND ALERT IN BED. A/O X 4. [place] SPEAKING ONLY. FAMILY AT BEDSIDE. NO SI/HI VERBALIZED AT THIS TIME. SITTER ON ROOM AIR, BREATHING EVEN AND UNLABORED, NO S/S OF DISTRESS OR SOB NOTED AT THIS TIME. IV ACCESS ON LFA 22 G , RUNNING 20 MEQ KCL @ 75 CC/HR AND BELINDA PICC LINE RUNNING TPN @ 60 ML/HR AND LIPID AT 20 ML/HR NO C/O PAIN OR DISCOMFORT. BOTH IRASEMA DRAINING WELL. GTUBE DRAINING WITH LOW SUCTIONING. HEMPHILL CATHETER IN PLACE DRAINING YELLOW COLORED URINE. SAFETY MEASURES IN PLACE WITH BED IN LOWEST LOCKED POSITION. SIDE RAILS UP X 2. CALL LIGHT AND TRAY WITHIN EASY REACH. WILL CONTINUE TO MONITOR THE PATIENT.
[2022-08-20 20:00] VITALS: BP 163/90
[2022-08-20] MEDS ORDERED: Magnesium 1GM/D5W 100ML PREMIX 100 ML IV SCH (21:00)
--- NOTE | 2022-08-20 22:25 | NUR ---
RN NOTES-MORPHINE GIVEN PRN PATIENT C/O OF PAIN WITH PAIN LEVEL OF 8/10. NO DISTRESS NOTED. WILL CONTINUE TO MONITOR THE PATIENT.
[2022-08-20] MEDS: MIRTAZAPINE SOLUTAB 15 MG/UDTABLET TAB.RAPDIS PO SCH (22:46)
[2022-08-21] VITALS: BP 140/90
[2022-08-21] MEDS: MORPHINE SULFATE INJ 4 MG/ML DISP.SYRIN IV PRN ×4 (02:50→22:47)
--- NOTE | 2022-08-21 02:50 | NUR ---
RN NOTES-MORPHINE GIVEN PRN PATIENT C/O OF PAIN WITH PAIN LEVEL OF 8/10. NO DISTRESS NOTED. WILL CONTINUE TO MONITOR THE PATIENT.
[2022-08-21] MEDS: PIPERACILLIN /TAZOBACTAM 3.375 G in IV D5W 100 ML IV SCH ×3 (03:02→20:35)
[2022-08-21] MEDS: METOCLOPRAMIDE HCL 10 MG/2 ML VIAL IV SCH ×4 (03:16→21:41)
[2022-08-21 04:00] VITALS: BP 140/90
[2022-08-21] MEDS: BLOOD SUGAR DIAGNOSTIC 1 EACH STRIP IN SCH ×3 (05:29→17:43)
[2022-08-21] MEDS: INSULIN REGULAR, HUMAN 100 UNIT/ML 3 ML VIAL SQ PRN ×2 (05:29→17:43)
[2022-08-21] MEDS ORDERED: TPN BAG #15 IV SCH ×3 (05:51)
[2022-08-21] MEDS: HYDROMORPHONE 1 MG/1 ML DISP.SYRIN IV PRN ×3 (06:40→20:34)
--- NOTE | 2022-08-21 06:45 | NUR ---
RN NOTES-DILAUDID GIVEN PRN PATIENT C/O OF ABDOMEN PAIN WITH 9/10 PAIN LEVEL. WILL CONTINUE TO MONITOR THE PATIENT.
--- NOTE | 2022-08-21 06:46 | NUR ---
PAINT LABORATORY TECHNICIAN CLOSING NOTES PATIENT SLEEPING IN BED. EASILY AWAKEN BY VERBAL STIMULI. A/O X 3-4. ITALIAN SPEAKING ONLY.SITTER AT BEDSIDE. NO SI/HI VERBALIZED AT THIS TIME. ON ROOM AIR, BREATHING EVEN AND UNLABORED, NO S/S OF DISTRESS OR SOB NOTED AT THIS TIME. IV ACCESS ON LFA 22 G RUNNING TPN @ 60 ML/HR AND ZOSYN 25ML/HR. BELINDA PICC LINE RUNNING 20 MEQ KCL @ 75 CC/HR AND LIPID AT 20 ML/HR NO C/O OF PAIN OR DISCOMFORT. IRASEMA DRAINED 270ML. GTUBE DRAINING WITH LOW SUCTIONING. HEMPHILL CATHETER IN PLACE DRAINED 750ML OF YELLOW COLORED URINE.ALL NEEDS ATTENDED. SAFETY MEASURES MAINTAINED DURING SHIFT. WILL ENODRSE TO THE NEXT SHIFT.
[2022-08-21 07:35] LABS: BASOPHILS % (AUTO) 0.4 % (0.0-2.0); EOSINOPHILS % (AUTO) 1.2 % (0.0-6.0); HEMATOCRIT 26 % (33-45); HEMOGLOBIN 9.6 g/dL (11.5-14.8); LYMPHOCYTES # (AUTO) 0.4 K/uL (0.8-4.8); LYMPHOCYTES % (AUTO) 4.5 % (20.0-44.0); MEAN CORPUSCULAR HGB CONC 38 g/dl (31.0-36.0); MEAN CORPUSCULAR VOLUME 85 fL (82-100); MONOCYTES # (AUTO) 0.8 K/uL (0.1-1.30); MONOCYTES % (AUTO) 8.5 % (2.0-12.0); NEUTROPHILS # (AUTO) 8.4 K/uL (1.8-8.9); NEUTROPHILS % (AUTO) 85.4 % (43.0-81.0); PLATELET COUNT (AUTO) 186 K/uL (150-450); WHITE BLOOD COUNT (AUTO) 9.9 K/uL (4.3-11.0)
--- NOTE | 2022-08-21 07:49 | NUR ---
FURNITURE REPAIR TECHNICIAN OPENING NOTES PATIENT SLEEPING IN BED. EASILY AWAKEN BY VERBAL STIMULI. A/O X 3-4. BULGARIAN SPEAKING ONLY.STERLING CONSTANTINO AT BEDSIDE. ON TELE MONITOR CURRENTLY READS SINUS TACH 123. ON ROOM AIR, BREATHING EVEN AND UNLABORED, NO S/S OF DISTRESS OR SOB NOTED AT THIS TIME. IV ACCESS ON LFA 22 G RUNNING TPN @ 60 ML/HR AND ZOSYN 25ML/HR. BELINDA PICC LINE RUNNING 20 MEQ KCL @ 75 CC/HR AND LIPID AT 20 ML/HR NO C/O OF PAIN OR DISCOMFORT AT THIS TIME. WITH IRASEMA CONTRAPTION. GTUBE DRAINING WITH LOW SUCTIONING. HEMPHILL CATHETER IN PLACE DRAINING YELLOW COLORED URINE. SAFETY MEASURES MAINTAINED. WILL CONTINUE TO MONITOR.
[2022-08-21 08:44] LABS: BILIRUBIN,TOTAL 0.3 mg/dL (0.2-1.0); CALCIUM, SERUM 7.3 mg/dL (8.5-10.1); CREATININE 0.6 mg/dL (0.6-1.3); MAGNESIUM 1.5 mg/dL (1.8-2.4); POTASSIUM 3.1 mmol/L (3.5-5.1); TOTAL PROTEIN, SERUM 5.2 g/dL (6.4-8.2)
[2022-08-21 08:46] LABS: ALBUMIN 0.9 g/dL (3.4-5.0)
[2022-08-21] MEDS: PANTOPRAZOLE 40 MG VIAL IV SCH (08:53)
[2022-08-21 09:13] VITALS: BP 160/97
--- NOTE | 2022-08-21 09:15 | NUR ---
RN NOTES RECEIVED CRITICAL VALUE RESULT FROM LAB. ALBUMIN LEVEL IS 0.9. BARRY GAINES BELTING AND WEBBING INSPECTOR MADE AWARE, WAITING FOR ORDER
--- NOTE | 2022-08-21 10:01 | NUR ---
SW NOTE: SW consult requested for placement. Pt had 1:1 bedside sitter. Pt appeared with a flat affect. Patient stated that she was brought to the hospital because she is feeling sick. Patient is alert and oriented x2 (self,place). She was vague with her answers. Pt stated that she lives at home with her children. She stated she would want to return back home upon discharge [address] [place] [address]. Patient stated that she feels anxious and depressed because she has been at the hospital. SW assessed for suicidal or homicidal ideation, she stated that she is feeling better and no longer feeling suicidal. SW assessed if pt has attempted suicide in the past. Pt stated she has never attempted suicidal but has had thoughts. Patient currently denies. Patient denied visual/auditory hallucinations. Pt denied mental health issues. SW notified CM about pt's plan. CM stated that pt's family would want her to receive treatment but pt refuses and wants to go home. CM will speak with family. DC PLAN: Pt would want to return back home located at [address] [place] [phone].
[2022-08-21] MEDS: POTASSIUM CL. PREMIX PERIPHER. 50 ML IV SCH ×6 (11:28→22:04)
[2022-08-21] MEDS: Magnesium 1GM/D5W 100ML PREMIX 100 ML IV SCH ×2 (11:28→12:29)
[2022-08-21] MEDS: Potassium Chloride 20 MEQ in IV NS 0.9% 1,000 ML IV SCH (12:14)
[2022-08-21 12:55] VITALS: BP 148/90
[2022-08-21] MEDS: MICAFUNGIN SODIUM 100 MG in IV NS 0.9% 100 ML IV SCH (13:30)
[2022-08-21 18:02] VITALS: BP 144/94
--- NOTE | 2022-08-21 19:26 | NUR ---
RN OPENING NOTE PATIENT AWAKE IN ROOM SITTING IN CHAIR BY BED. A/OX4. NO S/S OF DISTRESS, BREATHING WITHOUT DIFFICULTY ON ROOM AIR. RAC PICC LINE INTACT AND PATENT W/ KCl 75ML/HR; LFA #22 INTACT AND PATENT W/ TPN 60ML/HR. SAFETY MEASURES IN PLACE: BED LOCKED AND AT LOWEST POSITION, RAILS UP X2, CALL DELAROSA WITHIN REACH. WILL CONTINUE TO MONITOR PATIENT. Addendum: 08/21/22 at 1959 by YAJAIRA BORJA RN TELE READS ST 134 (PATIENT'S BASELINE)
--- NOTE | 2022-08-21 19:38 | NUR ---
CLINICAL ESTHETICIAN CLOSING NOTES PATIENT SLEEPING IN BED. EASILY AWAKEN BY VERBAL STIMULI. A/O X 3-4. HEBREW SPEAKING ONLY ON ROOM AIR, BREATHING EVEN AND UNLABORED, NO S/S OF DISTRESS OR SOB NOTED AT THIS TIME. IV ACCESS ON LFA 22 G RUNNING TPN @ 60 ML/HR. BELINDA PICC LINE RUNNING 20 MEQ KCL @ 75 CC/HR. NO C/O OF PAIN OR DISCOMFORT. IRASEMA DRAINED 55ML. GTUBE DRAINING WITH LOW SUCTIONING. HEMPHILL CATHETER IN PLACE DRAINED 800ML OF YELLOW COLORED URINE.ALL NEEDS ATTENDED. SAFETY MEASURES MAINTAINED DURING SHIFT. WILL ENDORSED TO THE NEXT SHIFT.
[2022-08-21 20:00] VITALS: BP 157/117
[2022-08-21] MEDS ORDERED: Magnesium 1GM/D5W 100ML PREMIX 100 ML IV SCH (21:00)
[2022-08-21] MEDS: MIRTAZAPINE SOLUTAB 15 MG/UDTABLET TAB.RAPDIS PO SCH (21:41)
[2022-08-21] MEDS ORDERED: TPN BAG #16 IV SCH ×4 (22:51)
[2022-08-22] VITALS: BP 148/105
[2022-08-22] MEDS: INSULIN REGULAR, HUMAN 100 UNIT/ML 3 ML VIAL SQ PRN ×5 (00:28→23:33)
[2022-08-22] MEDS: BLOOD SUGAR DIAGNOSTIC 1 EACH STRIP IN SCH ×5 (00:29→23:30)
[2022-08-22] MEDS: Potassium Chloride 20 MEQ in IV NS 0.9% 1,000 ML IV SCH ×2 (00:29→14:53)
[2022-08-22] MEDS: HYDROMORPHONE 1 MG/1 ML DISP.SYRIN IV PRN ×5 (00:30→23:13)
[2022-08-22] MEDS: MORPHINE SULFATE INJ 4 MG/ML DISP.SYRIN IV PRN ×4 (03:25→20:17)
[2022-08-22] MEDS: PIPERACILLIN /TAZOBACTAM 3.375 G in IV D5W 100 ML IV SCH ×3 (04:30→19:37)
[2022-08-22] MEDS: METOCLOPRAMIDE HCL 10 MG/2 ML VIAL IV SCH ×4 (04:30→21:52)
[2022-08-22 04:58] VITALS: BP 146/100
[2022-08-22 06:15] LABS: BASOPHILS % (AUTO) 0.1 % (0.0-2.0); EOSINOPHILS % (AUTO) 0.2 % (0.0-6.0); HEMATOCRIT 27 % (33-45); HEMOGLOBIN 8.8 g/dL (11.5-14.8); LYMPHOCYTES # (AUTO) 0.5 K/uL (0.8-4.8); LYMPHOCYTES % (AUTO) 4.5 % (20.0-44.0); MEAN CORPUSCULAR HGB CONC 33 g/dl (31.0-36.0); MEAN CORPUSCULAR VOLUME 84 fL (82-100); MONOCYTES # (AUTO) 1.1 K/uL (0.1-1.30); MONOCYTES % (AUTO) 9.3 % (2.0-12.0); NEUTROPHILS % (AUTO) 85.9 % (43.0-81.0); PLATELET COUNT (AUTO) 211 K/uL (150-450); RED BLOOD CELL COUNT(AUTO) 3.22 MIL/uL (4.0-5.2); WHITE BLOOD COUNT (AUTO) 11.6 K/uL (4.3-11.0)
[2022-08-22 06:39] LABS: CALCIUM, SERUM 7.5 mg/dL (8.5-10.1); CREATININE 0.6 mg/dL (0.6-1.3); MAGNESIUM 1.9 mg/dL (1.8-2.4); PHOSPHORUS 2.7 mg/dL (2.5-4.9); POTASSIUM 3.7 mmol/L (3.5-5.1)
--- NOTE | 2022-08-22 06:40 | NUR ---
RN CLOSING NOTE PATIENT ASLEEP IN BED. A/OX3. NO S/S OF DISTRESS, BREATHING WITHOUT DIFFICULTY ON ROOM AIR. RAC PICC INTACT AND PATENT W/ TPN 60ML/HR & KCl 75ML/HR; LFA #22 TKO INTACT AND PATENT. TELE ST 137. IRASEMA DRAINING, PRIMARILY ON ON THE RIGHT IRASEMA. NO GASTRIC DRAINAGE FROM SHIFT. SAFETY MEASURES IN PLACE: BED LOCKED AND AT LOWEST POSITION, RAILS UP X2, CALL DELAROSA WITHIN REACH. WILL ENDORSE TO NEXT SHIFT FOR KARUNA.
--- NOTE | 2022-08-22 07:25 | NUR ---
RN OPENING NOTE RECEIVED PATIENT ASLEEP IN BED. EASILY AWAKENED. A/OX3. NO S/SX OF ACUTE DISTRESS NOTED. ON ROOM AIR, NO SOB NOTED, BREATHING EVEN AND UNLABORED WITH RIGHT UPPER PICC LINE, INTACT AND PATENT W/ TPN 60ML/HR AND NS + 20MEQ KCl 75ML/HR INFUSING WELL. LFA #22G TKO INTACT AND PATENT. ON TELE MONITORING SHOWING ST 133. IRASEMA DRAINING, PRIMARILY ON THE RIGHT IRASEMA. NO GASTRIC DRAINAGE. SAFETY MEASURES IN PLACE. BED IN LOCKED AND LOW POSITION, SIDE RAILS UP X2, CALL LIGHT PLACED WITHIN EASY REACH. WILL CONTINUE TO MONITOR PATIENT.
[2022-08-22 08:00] VITALS: BP 147/113
[2022-08-22] MEDS: PANTOPRAZOLE 40 MG VIAL IV SCH (08:42)
[2022-08-22] MEDS: ACETAMINOPHEN 650 MG/20.3 ML UDC GT PRN (11:53)
[2022-08-22] MEDS: FLUCONAZOLE IN NS,PREMIX 400 MG in PREMIX 1 EA IV SCH ×2 (11:53)
[2022-08-22 12:00] VITALS: BP_SYST 147; BP_SYST 160; BP_DIAS 108; BP_DIAS 113
[2022-08-22] MEDS ORDERED: TPN BAG #17 IV SCH ×3 (15:42)
[2022-08-22 16:00] VITALS: BP 155/117
[2022-08-22] MEDS: FAT EMULSION 20% 500 ML in PREMIX 1 EA IV SCH (18:29)
--- NOTE | 2022-08-22 18:54 | NUR ---
RN CLOSING NOTE PATIENT ASLEEP IN BED. EASILY AWAKENED. ABLE TO MAKE NEEDS KNOWN. NO S/SX OF ACUTE DISTRESS NOTED. REMAINS STABLE ON ROOM AIR, NO SOB NOTED, BREATHING EVEN AND UNLABORED. MEDICATED FOR PAIN NEEDED. RIGHT UPPER ARM PICC LINE, INTACT AND PATENT W/ TPN 60ML/HR AND IV LIPIDS @20.833ML/HR INFUSING WELL. LFA #22G, INTACT AND PATENT WITH NS +20 MEQ KCL @75 ML/HR RUNNING. CONTINUE ON TELE MONITORING SHOWING ST HR @114. BILATERAL IRASEMA DRAINING, RIGHT IRASEMA WITH SEROUS OUTPUT, LEFT IRASEMA DRAINING PURULENT OUTPUT. WITH 400 ML GASTRIC DRAINAGE THIS SHIFT. SAFETY MEASURES MAINTAINED. BED LOCKED AND LOW POSITION, SIDE RAILS UP X2, CALL LIGHT PLACED WITHIN EASY REACH. WILL ENDORSE TO NEXT SHIFT FOR KARUNA. Addendum: 08/22/22 at 1901 by JEFF OWENS RN - RIGHT IRASEMA DRAIN - 180 ML SEROUS OUTPUT -LEFT IRASEMA DRAIN - 20 ML PURULENT OUTPUT - GASTRIC DRAINAGE - 400 ML
--- NOTE | 2022-08-22 19:30 | NUR ---
COMMUNITY ENGAGEMENT COORDINATOR OPENING NOTE RECEIVED PATIENT FROM AM NURSE; PATIENT ASLEEP IN BED, EASILY AROUSABLE, ABLE TO MAKE NEEDS KNOWN;STABLE ON ROOM AIR, NO SOB NOTED, BREATHING EVENLY AND NO S/S OF DISTRESS NOTED;.WITH RIGHT UPPER ARM PICC LINE, INTACT AND PATENT W/ TPN 60ML/HR AND IV LIPIDS @20.833ML/HR INFUSING WELL; WITH LFA #22G, INTACT AND PATENT RUNNING WITH NS +20 MEQ KCL @75 ML/HR; HOOKED ON TELE MONITORING CURRENTLY READING SINUS TACHY 100S BPM; WITH PRESENCE OF BILATERAL IRASEMA DRAIN, RIGHT IRASEMA WITH SEROUS OUTPUT, LEFT IRASEMA DRAINING PURULENT OUTPUT WITH GASTRIC DRAINAGE IN PLACE; SAFETY MEASURES MAINTAINED; BED LOCKED IN LOW POSITION, SIDE RAILS UP X2, CALL LIGHT PLACED WITHIN EASY REACH, BED ALARM ON; WILL CONTINUE TO MONITOR THROUGHOUT SHIFT
[2022-08-22 20:00] VITALS: BP 151/96
--- NOTE | 2022-08-22 21:00 | NUR ---
FRESH MEAT GRADER NOTE NOTED PATIENT WITH FACIAL GRIMACING AND VERBALIZED NEEDING PAIN MEDICATION; ADMINISTERED MORPHINE PRN ORDERED; PATIENT TOLERATED WELL WITH FAMILY AT BEDSIDE, WILL CONTINUE TO MONITOR
[2022-08-22] MEDS: MIRTAZAPINE SOLUTAB 15 MG/UDTABLET TAB.RAPDIS PO SCH (21:52)
--- NOTE | 2022-08-22 23:40 | NUR ---
CLINICAL ADMINISTRATIVE COORDINATOR NOTE PATIENT ASKED FOR PAIN MEDICATION, NOTED FACIAL GRIMACING AND VERBALIZING PAIN. ADMINISTERED DILAUDID PRN ORDERED; PATIENT FELL ASLEEP UPON REASSESSMENT. WILL CONTINUE TO MONITOR
[2022-08-23] VITALS: BP 160/98
[2022-08-23] MEDS: MORPHINE SULFATE INJ 4 MG/ML DISP.SYRIN IV PRN ×3 (01:40→11:12)
--- NOTE | 2022-08-23 02:20 | NUR ---
LINE CAMERA OPERATOR NOTE PATIENT COMPLAINED OF PAIN AND ASKED FOR PAIN MEDICATION; ADMNISTERED MORPHINE PRN ORDERED AT 0140H; PATIENT TOLERATED WELL, WILL CONTINUE TO MONITOR
[2022-08-23] MEDS: HYDROMORPHONE 1 MG/1 ML DISP.SYRIN IV PRN ×3 (03:45→12:33)
[2022-08-23 04:00] VITALS: BP 150/90
--- NOTE | 2022-08-23 04:00 | NUR ---
ALLERGIST NOTE PATIENT VERBALIZED THE NEED FOR ANOTHER DOSE OF PAIN MEDICATION; ADMINISTERED DILAUDID PRN ORDERED AT 0345H, PATIENT TOLERATED WELL AND FELL ASLEEP; WILL CONTINUE TO MONITOR
[2022-08-23] MEDS: METOCLOPRAMIDE HCL 10 MG/2 ML VIAL IV SCH ×2 (04:29→10:25)
[2022-08-23] MEDS: PIPERACILLIN /TAZOBACTAM 3.375 G in IV D5W 100 ML IV SCH ×2 (04:29→12:08)
[2022-08-23] MEDS: Potassium Chloride 20 MEQ in IV NS 0.9% 1,000 ML IV SCH (04:36)
[2022-08-23] MEDS: INSULIN REGULAR, HUMAN 100 UNIT/ML 3 ML VIAL SQ PRN ×2 (05:46→12:13)
[2022-08-23] MEDS: BLOOD SUGAR DIAGNOSTIC 1 EACH STRIP IN SCH ×2 (05:47→12:08)
--- NOTE | 2022-08-23 06:49 | NUR ---
SURVEILLANCE OPERATOR NOTE PATIENT INSISTED ON GETTING ANOTHER DOSE OF PAIN MEDICATION, ADMINISTERED MORPHINE PRN ORDERED AT 0630H; PATIENT TOLERATED WELL; WILL CONTINUE TO MONITOR
--- NOTE | 2022-08-23 06:53 | NUR ---
OVERCOIL STEPPER CLOSING NOTE PATIENT RESTING IN BED, EASILY AROUSABLE, ABLE TO MAKE NEEDS KNOWN; STABLE ON ROOM AIR, NO SOB NOTED, BREATHING EVENLY AND NO S/S OF DISTRESS NOTED; WITH RIGHT UPPER ARM PICC LINE, INTACT AND PATENT W/ TPN RUNNING AT 60ML/HR AND IV LIPIDS RUNNING AT 20.833 ML/HR; WITH LFA #22G, INTACT AND PATENT RUNNING WITH NS +20 MEQ KCL AT 75 ML/HR; HOOKED ON TELE MONITORING CURRENTLY READING SINUS TACHY 110S BPM; WITH PRESENCE OF BILATERAL IRASEMA DRAIN, RIGHT IRASEMA WITH SEROUS OUTPUT APPROXIMATELY 170ML, LEFT IRASEMA DRAINING PURULENT OUTPUT APPROXIMATELY 80ML AND WITH GASTRIC DRAINAGE IN PLACE DRIANING TO 50ML FLUID; ADMINISTERED MEDICATIONS PRESCRIBED; PATIENT'S NEEDS ATTENDED; SAFETY MEASURES MAINTAINED; BED LOCKED IN LOW POSITION, SIDE RAILS UP X2, CALL LIGHT PLACED WITHIN EASY REACH, BED ALARM ON; WILL ENDORSE TO AM NURSE FOR KARUNA.
[2022-08-23 07:40] LABS: BASOPHILS % (AUTO) 0.3 % (0.0-2.0); EOSINOPHILS % (AUTO) 0.5 % (0.0-6.0); HEMATOCRIT 25 % (33-45); HEMOGLOBIN 8.8 g/dL (11.5-14.8); LYMPHOCYTES # (AUTO) 0.4 K/uL (0.8-4.8); LYMPHOCYTES % (AUTO) 3.2 % (20.0-44.0); MEAN CORPUSCULAR HGB CONC 35 g/dl (31.0-36.0); MEAN CORPUSCULAR VOLUME 86 fL (82-100); MONOCYTES # (AUTO) 0.9 K/uL (0.1-1.30); MONOCYTES % (AUTO) 7.1 % (2.0-12.0); NEUTROPHILS # (AUTO) 11.2 K/uL (1.8-8.9); NEUTROPHILS % (AUTO) 88.9 % (43.0-81.0); PLATELET COUNT (AUTO) 166 K/uL (150-450); RED BLOOD CELL COUNT(AUTO) 2.93 MIL/uL (4.0-5.2); WHITE BLOOD COUNT (AUTO) 12.6 K/uL (4.3-11.0)
[2022-08-23 07:59] LABS: CREATININE 0.6 mg/dL (0.6-1.3); MAGNESIUM 1.4 mg/dL (1.8-2.4); PHOSPHORUS 2.5 mg/dL (2.5-4.9); POTASSIUM 3.4 mmol/L (3.5-5.1)
[2022-08-23 08:00] VITALS: BP 166/100
[2022-08-23] MEDS: PANTOPRAZOLE 40 MG VIAL IV SCH (08:23)
[2022-08-23] MEDS ORDERED: TPN BAG #18 IV SCH ×3 (08:42)
[2022-08-23] MEDS: Magnesium 1GM/D5W 100ML PREMIX 100 ML IV SCH ×4 (09:20→12:07)
[2022-08-23] MEDS: POTASSIUM CL. PREMIX PERIPHER. 50 ML IV SCH ×2 (09:20→10:35)
[2022-08-23] MEDS: FLUCONAZOLE IN NS,PREMIX 400 MG in PREMIX 1 EA IV SCH ×2 (10:25)
[2022-08-23 12:00] VITALS: BP 181/98
[2022-08-23 12:28] VITALS: BP 180/98
[2022-08-23] MEDS: hydrALAZINE HCL IV 20 MG VIAL IV PRN (12:28)
[2022-08-23] MEDS ORDERED: HYDROMORPHONE 1 MG/1 ML DISP.SYRIN IV ONE (14:00)
--- NOTE | 2022-08-23 15:21 | NUR ---
RN NOTE PATIENT LEFT HOSPITAL AGAINST MEDICAL ADVICE .ALL MEDICAL RECORD WAS PROVIDED TO THE DAUGHTER . UPON DISCHARGE EVALUATION , PATIENT DID NOP HAS ANY SUICIDAL IDEATION AND WAS OPTIMISTIC TOWARDS HER HEALTH STATUS .PATIENT DISCHARGE FROM [facility]
[2022-08-23] MEDS ORDERED: Magnesium 1GM/D5W 100ML PREMIX 100 ML IV SCH (21:00)
[2022-08-23] MEDS ORDERED: POTASSIUM PHOSPHATE MM 7.5 MMOL in IV NS 0.9% 100 ML IV SCH (21:00)
[2022-08-24] MEDS ORDERED: TPN BAG #19 IV SCH ×3 (01:42)
== END 2022-08-23 15:11 | disposition left against medical advice (07) | DRG 792 ==
LOC: ER 10:06 → ICU 12:59 → TELE1 07-26 15:16 → ICU 07-28 23:59 → TELE1 07-31 16:21 → TELE-TD 08-03 16:32 → MEDSG1 08-04 09:38 → TELE1 08-08 13:11
PROVIDERS: ADMIT Internal Medicine; ATTEND Nurse Practitioner Family
PROC: 05H933Z Insertion of Infusion Device into Right Brachial Vein, Percutaneous Approach (ICD-10-PCS; 2022-07-26)
PROC: 0DU Gastrointestinal System, Supplement (ICD-10-PCS; principal; 2022-07-29)
PROC: 30233N1 Transfusion of Nonautologous Red Blood Cells into Peripheral Vein, Percutaneous Approach (ICD-10-PCS; 2022-07-29)
PROC: 05HC33Z Insertion of Infusion Device into Left Basilic Vein, Percutaneous Approach (ICD-10-PCS; 2022-08-02)
PROC: 0F913ZX Drainage of Right Lobe Liver, Percutaneous Approach, Diagnostic (ICD-10-PCS; 2022-08-06)
PROC: 02HV33Z Insertion of Infusion Device into Superior Vena Cava, Percutaneous Approach (ICD-10-PCS; 2022-08-10)
PROC: B548ZZA Ultrasonography of Superior Vena Cava, Guidance (ICD-10-PCS; 2022-08-10)
PROC: 02HV33Z Insertion of Infusion Device into Superior Vena Cava, Percutaneous Approach (ICD-10-PCS; 2022-08-20)
PROC: B548ZZA Ultrasonography of Superior Vena Cava, Guidance (ICD-10-PCS; 2022-08-20)
DX: T85.590A Other mechanical complication of bile duct prosthesis, initial encounter (principal); A41.81 Sepsis due to Enterococcus; E11.00 Type 2 diabetes mellitus with hyperosmolarity without nonketotic hyperglycemic-hyperosmolar coma (NKHHC); K63.1 Perforation of intestine (nontraumatic); K25.5 Chronic or unspecified gastric ulcer with perforation; N17.0 Acute kidney failure with tubular necrosis; K65.0 Generalized (acute) peritonitis; G93.41 Metabolic encephalopathy; N13.6 Pyonephrosis; E83.39 Other disorders of phosphorus metabolism; I21.A1 Myocardial infarction type 2; E87.4 Mixed disorder of acid-base balance; B37.9 Candidiasis, unspecified; E11.65 Type 2 diabetes mellitus with hyperglycemia; D50.9 Iron deficiency anemia, unspecified; K65.1 Peritoneal abscess; E87.0 Hyperosmolality and hypernatremia; E86.0 Dehydration; N39.0 Urinary tract infection, site not specified; K66.0 Peritoneal adhesions (postprocedural) (postinfection); Z85.028 Personal history of other malignant neoplasm of stomach; Z79.84 Long term (current) use of oral hypoglycemic drugs; Z79.899 Other long term (current) drug therapy; E86.1 Hypovolemia; R74.01 Elevation of levels of liver transaminase levels; E87.6 Hypokalemia; E83.41 Hypermagnesemia; R45.851 Suicidal ideations; Z85.43 Personal history of malignant neoplasm of ovary; Z93.4 Other artificial openings of gastrointestinal tract status; N88.8 Other specified noninflammatory disorders of cervix uteri; N14.11 Contrast-induced nephropathy; T50.8X5A Adverse effect of diagnostic agents, initial encounter; Y92.9 Unspecified place or not applicable; N94.89 Other specified conditions associated with female genital organs and menstrual cycle; N28.1 Cyst of kidney, acquired; K80.20 Calculus of gallbladder without cholecystitis without obstruction; J98.11 Atelectasis; E88.09 Other disorders of plasma-protein metabolism, not elsewhere classified; E43 Unspecified severe protein-calorie malnutrition; I47.1 Supraventricular tachycardia; F32.A Depression, unspecified; J90 Pleural effusion, not elsewhere classified; K76.0 Fatty (change of) liver, not elsewhere classified; N83.201 Unspecified ovarian cyst, right side; I70.0 Atherosclerosis of aorta; E83.42 Hypomagnesemia; Y83.8 Other surgical procedures as the cause of abnormal reaction of the patient, or of later complication, without mention of misadventure at the time of the procedure; Y92.89 Other specified places as the place of occurrence of the external cause; D64.9 Anemia, unspecified; R06.89 Other abnormalities of breathing; C78.6 Secondary malignant neoplasm of retroperitoneum and peritoneum; J93.9 Pneumothorax, unspecified; Z53.29 Procedure and treatment not carried out because of patient's decision for other reasons
CPT/HCPCS: 36410; 36415; 36569; 36600; 70450-TC; 71045-TC; 71260-TC; 72197-TC; 74246-TC; 75989; 75989-TC; 76700-TC; 76770-TC; 78226; 80048-TC; 80053-TC; 80061-TC; 80076-TC; 80202-TC; 81001; 82040-TC; 82140-TC; 82247-TC; 82248-TC; 82378; 82570-TC; 82607-TC; 82728-TC; 82784; 82803-TC; 82962-TC; 83540-TC; 83605-TC; 83735-TC; 84100-TC; 84132-TC; 84155; 84165; 84300-TC; 84439-TC; 84443-TC; 84478-TC; 84484-TC; 84703-TC; 85025-TC; 85027-TC; 85385-TC; 85610-TC; 85730-TC; 86304; 86334; 86803; 86850-TC; 87040-TC; 87081-TC; 87086-TC; 87806; 88305-TC; 88313-TC; 88342; 93307-TC; 97110-TC; 97112-TC; 97116-TC; 97530-TC; 97535-TC; A4216; A4223; A6209; A6253; A6403; A9537; A9563; A9575; C9113; C9803; G0378; J0360; J0690; J0692; J1120; J1170; J1200; J1450; J1650; J1815; J1940; J2060; J2248; J2250; J2270; J2405; J2543; J2704; J2765; J2916; J3010; J3370; J3475; J3480; J3490; J7030; J7040; J7042; J7050; J7060; J7070; P9016; Q9963; Q9967